=== PATIENT | female | born 1960 | race Caucasian/White ===

== ENCOUNTER 2016-07-14 18:36 | Emergency (ER) | payer OTHER ==
[~2016-07-14] VITALS: Ht 162.6 cm; Wt 68.3 kg
[~2016-07-14 18:36] MED LIST: ACET325T96 PO; ALPR-411 PO; ESCI1TAB10 PO; IMD/2 PO; NIVO4INJ IV; ONDA8TAB7 PO; OXYC-88 PO; OXYC20TA50 PO; PRENTAB26 PO; SYN125 PO; tumeric PO
[2016-07-14 19:01] VITALS: TEMP 36.8; Ht 162.6 cm; Wt 68.3 kg
[2016-07-14] MEDS ORDERED: SODIUM CHLORIDE 0.9% 500ML 500 ML IV STA (19:48)
[2016-07-14] MEDS ORDERED: SODIUM CHLORIDE 0.9% 1000ML 1,000 ML IV STA (19:48)
[2016-07-14] MEDS ORDERED: ONDANSETRON INJ 2 MG/ML 2 ML VIAL IV STA (19:48)
--- NOTE | 2016-07-14 19:48 | EMERGENCY ROOM VISIT NOTE ---
History Report prepared by Hernesto: Taylor Escalera Under the Supervision of: Dr. Netta Branch M.D. 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 She currently rates the pain as a 6/10 in severity. The patient states that she has a renal cell carcinoma. The patient's states the patient has been off treatment for about 3 months but has been dealing with cancer for the last 6 years. The patient states that she has had a pounding headache that goes across her forehead.The patient states that she also has been feeling nauseous and very fatigued. The patient's states that the he called the patient's oncologist and the recommend that due to the patient's new symptoms to come and have a CT of her head for new metastatic lesions in her brain. He states the patient has had tumors outside her head in the past but never in her brain. The patient states that she also has some pain in her ovaries and states that she has not had a menstrual period for a while now, and that she has had some spotting of blood in her urine. She states she has also noticed new lumps forming on both of her breasts. The patient states that she also has history of blood clots in her legs. 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 A total of 10 systems reviewed and were otherwise negative. 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 (11) Venous thrombosis Surgical Problems: (1) S/p ankle surgery (2) S/P craniotomy (3) S/P insertion of IVC (inferior vena caval) filter (4) S/p nephrectomy Family History FH: cancer FATHER (melanoma) MOTHER (leukemia) Social History Smoking Status: Never Smoker Alcohol Use: none Drug Use: none Marital Status: Housing Status: lives with family Current/Historical Medications Scheduled Alprazolam (Xanax), 0.5 MG PO QAM Escitalopram Oxalate (Lexapro), 20 MG PO DAILY Fentanyl (Fentanyl), Unknown Dose TOP Q3DAYS Levothyroxine Sodium (Levothyroxine Sodium), 1 TAB PO DAILYBB Multivit/Min/Iron/Fol Ac/Pren ( Vitamin), 1 TAB PO DAILY [tumeric], 1 CAP PO BID Scheduled PRN Acetaminophen Tab (Tylenol), 325 MG PO DIRECTED PRN for Moderate Pain Ondansetron Hcl (Zofran), 8 MG PO PRN PRN for Nausea or Vomiting Allergies Coded Allergies: POLLEN (Verified Allergy, Mild, sneezing, 07/14/16) Physical Exam Vital Signs Date Time Temp Pulse Resp B/P Pulse Ox O2 Delivery O2 Flow Rate FiO2 07/15/16 00:50 89 24 135/82 91 Room Air 07/14/16 22:33 90 18 120/77 92 Room Air 07/14/16 20:45 98 07/14/16 20:17 73 18 141/90 98 Room Air 07/14/16 19:01 36.8 90 18 122/85 93 Room Air Physical Exam Vital signs reviewed. General: Chronically ill appearing female. HEENT: No scleral icterus, PERRLA, neck supple. Mild periorbital swelling of the left eye. Postsurgical changes to the scalp. Cardiovascular: Regular rate and rhythm, no extra sounds. Pulmonary: Clear to auscultation bilaterally, normal work of breathing. Abdomen: Soft, nontender, nondistended, positive bowel sounds. Musculoskeletal: Well healing incision to the lumbar spine, no peripheral edema. Neurologic: Patient ambulates without difficulty, pleasantly confused but answer most questions appropriately, follows commands. Skin: Warm, dry, no rash Medical Decision & Procedures ER Provider Diagnostic Interpretation: CT results as stated below per my review and radiologist interpretation: CT SCAN OF THE BRAIN WITHOUT IV CONTRAST CLINICAL HISTORY: Change in mental status. Headache. History of metastatic renal cell carcinoma. COMPARISON STUDY: CT of the brain dated 01/05/2016. MRI of the brain dated 02/12/2016. TECHNIQUE: Unenhanced axial CT scan of the brain is performed from the vertex to the skull base. CT DOSE: 537.48 mGy.cm FINDINGS: Brain parenchyma: There are age-related involutional changes noting [id number] patchy subcortical and periventricular microangiopathic change. Left cerebellar encephalomalacia is unchanged and likely related to previous surgery. There is increasing edema in the right frontal lobe at the site of the patient's known metastatic lesion. The lesion is partially imaged on image #13 and measures at least 1.1 cm. There is a large and hyperdense appearing lesion seen within the body of the left lateral ventricle image #15. This measures 2.0 x 2.6 cm and was not identified on 02/12/2016. There is intraventricular hemorrhage identified within the right lateral ventricle. Trace blood is also seen within the left lateral ventricle. No parenchymal hematoma is seen. There is no midline shift or evidence of acute territorial ischemia by CT criteria. No extra-axial fluid collection is seen. Ventricles, sulci, cisterns: Prominent secondary to involutional change. See above. Intracranial vasculature: There is atherosclerotic calcification of the cavernous carotid and vertebral arteries. Calvarium: Again seen are postoperative changes from left occipital craniotomy. No destructive calvarial lesion is seen. Sinuses and mastoids: The visualized paranasal sinuses are clear. The mastoid air cells are well pneumatized. Orbits: The bony orbits are grossly intact. IMPRESSION: 1. Again seen is a metastatic focus in the right frontal lobe. There is increasing edema around this lesion as compared to previous. 2. There is a large mass lesion suspected within the body of the left lateral ventricle, new from prior studies. This likely represents an intraventricular metastasis. 3. There is intraventricular hemorrhage, with blood filling the right lateral ventricle. Trace blood is also seen within the left lateral ventricle. 4. There is no parenchymal hematoma identified. There is no midline shift or evidence of acute territorial ischemia by CT criteria. 5. Postoperative change and encephalomalacia in the left cerebellar hemisphere is similar to previous. Electronically signed by: Lopez Potts M.D. 07/14/2016 8:36 PM Dictated Date/Time: 07/14/2016 8:30 PM Laboratory Results 07/14/16 21:00 Red Blood Count 4.29, Mean Corpuscular Volume 85.8, Mean Corpuscular Hemoglobin 27.0, Mean Corpuscular Hemoglobin Concent 31.5, Mean Platelet Volume 9.0, Neutrophils (%) (Auto) 68.6, Lymphocytes (%) (Auto) 23.9, Monocytes (%) (Auto) 6.2, Eosinophils (%) (Auto) 0.9, Basophils (%) (Auto) 0.2, Neutrophils # (Auto) 3.89, Lymphocytes # (Auto) 1.35, Monocytes # (Auto) 0.35, Eosinophils # (Auto) 0.05, Basophils # (Auto) 0.01 07/14/16 21:00 Test 07/14/16 20:19 07/14/16 21:00 Urine Color YELLOW Urine Appearance CLEAR (CLEAR) Urine pH 6.0 (4.5-7.5) Urine Specific [place] 1.018 (1.000-1.030) Urine Protein 1+ (NEG) Urine Glucose (UA) NEG (NEG) Urine Ketones NEG (NEG) Urine Occult Blood 3+ (NEG) Urine Nitrite NEG (NEG) Urine Bilirubin NEG (NEG) Urine Urobilinogen NEG (NEG) Urine Leukocyte Esterase MODERATE (NEG) Urine WBC (Auto) >30 /hpf (0-5) Urine RBC (Auto) >30 /hpf (0-4) Urine Hyaline Casts (Auto) 1-5 /lpf (0-5) Urine Epithelial Cells (Auto) >30 /lpf (0-5) Urine Bacteria (Auto) NEG (NEG) Urine Renal Epithelial Cells 0-5 /lpf (0-5) White Blood Count 5.66 K/uL (4.8-10.8) Red Blood Count 4.29 M/uL (4.2-5.4) Hemoglobin 11.6 g/dL (12.0-16.0) Hematocrit 36.8 % (37-47) Mean Corpuscular Volume 85.8 fL (80-100) Mean Corpuscular Hemoglobin 27.0 pg (25-34) Mean Corpuscular Hemoglobin Concent 31.5 g/dl (32-36) Platelet Count 189 K/uL (130-400) Mean Platelet Volume 9.0 fL (7.4-10.4) Neutrophils (%) (Auto) 68.6 % Lymphocytes (%) (Auto) 23.9 % Monocytes (%) (Auto) 6.2 % Eosinophils (%) (Auto) 0.9 % Basophils (%) (Auto) 0.2 % Neutrophils # (Auto) 3.89 K/uL (1.4-6.5) Lymphocytes # (Auto) 1.35 K/uL (1.2-3.4) Monocytes # (Auto) 0.35 K/uL (0.11-0.59) Eosinophils # (Auto) 0.05 K/uL (0-0.5) Basophils # (Auto) 0.01 K/uL (0-0.2) RDW Standard Deviation 49.5 fL (36.4-46.3) RDW Coefficient of Variation 15.6 % (11.5-14.5) Immature Granulocyte % (Auto) 0.2 % Immature Granulocyte # (Auto) 0.01 K/uL (0.00-0.02) Anion Gap 11.0 mmol/L (3-11) Est Creatinine Clear Calc Drug Dose 25.7 ml/min Estimated GFR () 25.8 Estimated GFR (Non- 22.3 BUN/Creatinine Ratio 8.6 (10-20) Calcium Level 9.5 mg/dl (8.5-10.1) Total Bilirubin 0.3 mg/dl (0.2-1) Direct Bilirubin < 0.1 mg/dl (0-0.2) Aspartate Amino Transf (AST/SGOT) 15 U/L (15-37) Alanine Aminotransferase (ALT/SGPT) 11 U/L (12-78) Alkaline Phosphatase 74 U/L (45-117) Total Protein 7.0 gm/dl (6.4-8.2) Albumin 3.7 gm/dl (3.4-5.0) Laboratory results per my review. Medications Administered Medications (Trade) Dose Ordered Sig/Luis Route Start Time Stop Time Status Last Admin Dose Admin Sodium Chloride 500 ml @ 999 mls/hr Q31M STAT IV 07/14/16 19:48 07/14/16 20:18 DC 07/14/16 19:48 999 MLS/HR Sodium Chloride (Nss 1000ml) 1,000 ml @ 125 mls/hr Q8H STAT IV 07/14/16 19:48 07/15/16 03:47 07/14/16 19:48 125 MLS/HR Ondansetron HCl (Zofran Inj) 4 mg NOW STAT IV 07/14/16 19:48 07/14/16 19:50 DC 07/14/16 20:15 4 MG Hydromorphone HCl (Dilaudid Inj) 1 mg NOW STAT IV 07/14/16 21:04 07/14/16 21:05 DC 07/14/16 21:22 1 MG Hydromorphone HCl (Dilaudid Inj) 1 mg Q2HWA PRN IV 07/15/16 00:45 07/29/16 00:44 07/15/16 00:47 1 MG ED Course 1944: Past medical records reviewed. The patient was evaluated in room B3B. A complete history and physical examination was performed. 1947: Ordered Sodium Chloride 500 ml @ 999 mls/hr IV, Zofran Inj 4 mg IV, Sodium Chloride 1,000 ml @ 125 mls/hr IV 2103: Ordered Dilaudid Inj 1 mg IV. 2105: I reevaluated the patient and she was resting comfortably, I updated her on the results of her CT scan. 2124: I discussed the case with Dr. Ibarra [facility] Oncology. He agreed that the patient should be transferred to [facility] for further medical care and treatment. 2157: I reevaluated the patient who was resting comfortably. I updated them about the transfer to [facility]. 2200: I discussed the case with Dr. Yusuf [facility] Medicine. He agreed to accept the patient as a transfer to [facility] ED and states the patient can be transferred by ambulance. 3: Ordered Dilaudid Inj 1 mg IV. Medical Decision DDx: Intracranial hemorrhage, intracranial mass, migraine headache, tension headache , sinusitis, meningitis This patient was evaluated and appeared to be in no significant distress. IV access was obtained and laboratory work was drawn. Patient was hydrated with normal saline solution. Patient was given IV Dilaudid and Zofran for her discomfort. Laboratory work reveals an acute on chronic renal insufficiency with a creatinine of 2.4. CT scan of the head reveals an intraventricular lesion on the left with intraventricular bleeding in the right. The patient is followed in [place] by oncology. I spoke with the on-call oncologist, Dr. Ibarra who agrees with plan for transfer. They do have neurosurgical services. At this time the patient is in no distress, she periodically complaints of a headache that is alert and oriented. I did speak with Dr. Yusuf at [facility] from the hospitalist service who has accepted the patient in transfer. Neurosurgical consultation can be obtained. The patient and family are aware of the plan and agree. Consults Time Called: 2104 Consulting Physician: Dr. Ibarra [facility] Oncology Returned Call: 2124 I discussed the case with Dr. Ibarra [facility] Oncology. He agreed that the patient should be transferred to [facility] for further medical care and treatment. Additional Consults: Time Called: 2129 Consulted Physician: Dr. Yusuf [facility] Medicine Returned Call: 2200 Additional Comments: I discussed the case with Dr. Yusuf [facility] Medicine. He agreed to accept the patient as a transfer to [facility] ED and states the patient can be transferred by ambulance. Impression Primary Impression: Intracranial hemorrhage Additional Impression: Metastatic renal cell carcinoma Scribe Attestation The scribe's documentation has been prepared under my direction and personally reviewed by me in its entirety. I confirm that the note above accurately reflects all work, treatment, procedures, and medical decision making performed by me. Departure Information Dispostion Transfer Acute Care Facility ([facility]) Referrals Hayder Solorio M.D. (PCP) Patient Instructions My [facility] Problem Qualifiers
--- NOTE | 2016-07-14 20:37 | DIAGNOSTIC IMAGING REPORT ---
CT SCAN OF THE BRAIN WITHOUT IV CONTRAST CLINICAL HISTORY: Change in mental status. Headache. History of metastatic renal cell carcinoma. COMPARISON STUDY: CT of the brain dated 01/05/2016. MRI of the brain dated 02/12/2016. TECHNIQUE: Unenhanced axial CT scan of the brain is performed from the vertex to the skull base. CT DOSE: 537.48 mGy.cm FINDINGS: Brain parenchyma: There are age-related involutional changes noting [id number] patchy subcortical and periventricular microangiopathic change. Left cerebellar encephalomalacia is unchanged and likely related to previous surgery. There is increasing edema in the right frontal lobe at the site of the patient's known metastatic lesion. The lesion is partially imaged on image #13 and measures at least 1.1 cm. There is a large and hyperdense appearing lesion seen within the body of the left lateral ventricle image #15. This measures 2.0 x 2.6 cm and was not identified on 02/12/2016. There is intraventricular hemorrhage identified within the right lateral ventricle. Trace blood is also seen within the left lateral ventricle. No parenchymal hematoma is seen. There is no midline shift or evidence of acute territorial ischemia by CT criteria. No extra-axial fluid collection is seen. Ventricles, sulci, cisterns: Prominent secondary to involutional change. See above. Intracranial vasculature: There is atherosclerotic calcification of the cavernous carotid and vertebral arteries. Calvarium: Again seen are postoperative changes from left occipital craniotomy. No destructive calvarial lesion is seen. Sinuses and mastoids: The visualized paranasal sinuses are clear. The mastoid air cells are well pneumatized. Orbits: The bony orbits are grossly intact. IMPRESSION: 1. Again seen is a metastatic focus in the right frontal lobe. There is increasing edema around this lesion as compared to previous. 2. There is a large mass lesion suspected within the body of the left lateral ventricle, new from prior studies. This likely represents an intraventricular metastasis. 3. There is intraventricular hemorrhage, with blood filling the right lateral ventricle. Trace blood is also seen within the left lateral ventricle. 4. There is no parenchymal hematoma identified. There is no midline shift or evidence of acute territorial ischemia by CT criteria. 5. Postoperative change and encephalomalacia in the left cerebellar hemisphere is similar to previous. Electronically signed by: Lopez Potts M.D. 07/14/2016 8:36 PM Dictated Date/Time: 07/14/2016 8:30 PM
[2016-07-14 20:43] LABS: URINE APPEARANCE CLEAR (CLEAR); URINE BILIRUBIN NEG (NEG); URINE COLOR YELLOW; URINE EPITHELIAL CELL AUTO >30 /lpf (0-5); URINE NITRITE NEG (NEG); URINE SPECIFIC GRAVITY 1.018 (1.000-1.030); UROBILINOGEN NEG (NEG); ZZUR CULT IF INDIC CLEAN CATCH YES
[2016-07-14 20:47] LABS: MANUAL MICROSCOPIC REQUIRED? NO; REVIEW REQ? YES
[2016-07-14] MEDS ORDERED: HYDROmorphone INJ 1 MG/ML SYR IV STA (21:04)
[2016-07-14 21:09] LABS: BASO % 0.2 %; BASO ABS # 0.01 K/uL (0-0.2); COMPLETE YES; EOS % 0.9 %; HEMATOCRIT 36.8 % (37-47); IG% 0.2 %; LYMPH % 23.9 %; LYMPH ABS # 1.35 K/uL (1.2-3.4); MEAN CELL VOLUME 85.8 fL (80-100); MEAN CORPUSCULAR HGB CONC 31.5 g/dl (32-36); MONO % 6.2 %; NEUT % 68.6 %; PLATELET COUNT 189 K/uL (130-400); RED BLOOD COUNT 4.29 M/uL (4.2-5.4); WHITE BLOOD COUNT 5.66 K/uL (4.8-10.8)
[2016-07-14] MEDS ORDERED: ONDA8TAB12 PO (21:13)
[2016-07-14] MEDS ORDERED: LEVO125T5 PO (21:13)
[2016-07-14] MEDS ORDERED: FENT75DI2 TOP (21:13)
[2016-07-14 21:25] LABS: ALT/SGPT 11 U/L (12-78); BLOOD UREA NITROGEN 21 mg/dl (7-18); BUN/CREATININE RATIO 8.6 (10-20); CARBON DIOXIDE 26 mmol/L (21-32); CHLORIDE 106 mmol/L (98-107); GLUCOSE 112 mg/dl (70-99); POTASSIUM 3.8 mmol/L (3.5-5.1); SODIUM 143 mmol/L (136-145)
[2016-07-14 21:28] LABS: ALKALINE PHOSPHATASE 74 U/L (45-117); AST/SGOT 15 U/L (15-37)
[2016-07-14 22:22] LABS: CALCIUM 9.5 mg/dl (8.5-10.1)
[2016-07-15] MEDS: HYDROmorphone INJ 1 MG/ML SYR IV PRN ×2 (00:47→06:51)
[2016-07-15] MEDS ORDERED: ACETAMINOPHEN 500 MG TAB PO STA (08:27)
--- NOTE | 2016-07-15 10:16 | EMERGENCY ROOM VISIT NOTE ---
ED Visit Note The patient was received from the morning shift. The patient had arrangements to go to [facility] but the neurosurgical service and intensive care unit service did not feel they could handle the patient's situation. The patient has had neurosurgical evaluation as well as gamma knife surgery at [facility]. The patient agreed to go to [facility]. I spoke with from neurosurgery there. He accepted transfer the patient for further evaluation there. The patient is awake and alert. She received some Tylenol for a headache. She'll be transferred by helicopter per request of neurosurgery for further evaluation.
[2016-07-15] MEDS ORDERED: LORAZEPAM 2 MG/ML 1 ML VIAL IV STA (10:36)
[2016-07-15 11:14] VITALS: BP 119/79; PULSE 106; O2SAT 95
[2016-09-23] MEDS ORDERED: ONDA8TAB12 PO (09:46)
[2016-09-23] MEDS ORDERED: ALPR-411 PO (09:46)
[2016-09-23] MEDS ORDERED: MRPSR15 PO (09:46)
[2016-09-23] MEDS ORDERED: MORPHINE PO (09:50)
[2016-09-23] MEDS ORDERED: CIPR250T5 PO (09:50)
== END 2016-07-15 11:15 | disposition short-term general hospital (02) ==
LOC: C.EDB 18:37
DX: I62.9 Nontraumatic intracranial hemorrhage, unspecified (principal); C64.9 Malignant neoplasm of unspecified kidney, except renal pelvis; E03.9 Hypothyroidism, unspecified; N18.9 Chronic kidney disease, unspecified; G93.9 Disorder of brain, unspecified; Z86.718 Personal history of other venous thrombosis and embolism; Z85.828 Personal history of other malignant neoplasm of skin; Z90.5 Acquired absence of kidney; Z98.890 Other specified postprocedural states; Z80.6 Family history of leukemia; Z80.8 Family history of malignant neoplasm of other organs or systems; Z79.899 Other long term (current) drug therapy

== ENCOUNTER 2016-08-27 10:35 | Inpatient (IN) | payer OTHER ==
[~2016-08-27] VITALS: Ht 167.6 cm; Wt 68.7 kg
[~2016-08-27 10:35] MED LIST changes: +FENT75DI2 TOP; -IMD/2 PO; +LEVO125T5 PO; -NIVO4INJ IV; +ONDA8TAB12 PO; -ONDA8TAB7 PO; -OXYC-88 PO; -OXYC20TA50 PO; -SYN125 PO
[2016-08-27] MEDS ORDERED: CEFTRIAXONE SOD INJ 1 GM ADDVIAL IV STA (10:59)
[2016-08-27] MEDS ORDERED: SODIUM CHLORIDE 0.9% 1000ML 1,000 ML IV STA (10:59)
[2016-08-27] MEDS ORDERED: ONDANSETRON INJ 2 MG/ML 2 ML VIAL IV STA (10:59)
[2016-08-27 11:27] LABS: URINE APPEARANCE CLOUDY (CLEAR); URINE BILIRUBIN NEG (NEG); URINE NITRITE NEG (NEG); URINE PH 5.5 (4.5-7.5); UROBILINOGEN NEG (NEG); ZZUR CULT IF INDIC CLEAN CATCH YES
[2016-08-27 11:35] LABS: MANUAL MICROSCOPIC REQUIRED? NO; REVIEW REQ? NO; URINE COLOR DK YELLOW
[2016-08-27 11:48] LABS: HEMATOCRIT 36.6 % (37-47); MEAN CELL VOLUME 84.1 fL (80-100); MEAN CORPUSCULAR HEMOGLOBIN 26.7 pg (25-34); MEAN CORPUSCULAR HGB CONC 31.7 g/dl (32-36); MEAN PLATELET VOLUME 9.4 fL (7.4-10.4); PLATELET COUNT 196 K/uL (130-400); RED BLOOD COUNT 4.35 M/uL (4.2-5.4); WHITE BLOOD COUNT 7.84 K/uL (4.8-10.8)
[2016-08-27 12:12] LABS: BUN/CREATININE RATIO 13.6 (10-20); CALCIUM 12.3 mg/dl (8.5-10.1); CREATININE 2.9 mg/dl (0.60-1.20); POTASSIUM 4.1 mmol/L (3.5-5.1)
[2016-08-27 12:21] LABS: BASO % 0.1 %; BASO ABS # 0.01 K/uL (0-0.2); COMPLETE YES; EOS % 0.8 %; IG% 0.1 %; LYMPH % 13.4 %; LYMPH ABS # 1.05 K/uL (1.2-3.4); MONO % 4.1 %; NEUT % 81.5 %
[2016-08-27] MEDS ORDERED: SULF800T23 PO (12:27)
[2016-08-27] MEDS ORDERED: SYN100 PO (12:27)
[2016-08-27] MEDS ORDERED: PROB1TAB16 PO (12:27)
--- NOTE | 2016-08-27 14:32 | EMERGENCY ROOM VISIT NOTE ---
History Report prepared by Hernesto: Mónica Treviño Under the Supervision of: Dr. Harrison Eubanks D.O. First contact with patient: 10:58 Chief Complaint: URINARY SYMPTOMS Stated Complaint: URINARY FREQ. W/PAIN AND BLOOD Nursing Triage Summary: pt reports NV today , treated for UTI in urgent care 1 day ago has been treated X 3 for uti in last month History of Present Illness The patient is a 56 year old female who presents to the Emergency Room with complaints of persistent urinary symptoms that started 1 month ago. The patient is experiencing burning with urination and increased urinary frequency. The patient was seen at an urgent care in [place] last night because her PCP is going out of town. She was treated for a UTI. She had a urine culture done there last night. The patient's states that the patient had 3 UTIs in the last month. She started to experience nausea and vomiting earlier today. The patient's adds that the patient had clots in her urine last weekend , some of which were the size of a grape. The patient states that she has not had a menstrual period for 4-5 years. The patient's states that she had an ultrasound of her kidney done last week which revealed that the mass that was there previously is gone but now there are 2 lesions on her kidney. The patient was diagnosed with metastatic renal cell carcinoma 6 years ago and had one of her kidneys removed secondary to it. The cancer has metastasized to her brain, head, spine, and lungs. The patient's states that she also has tumors on her breasts. The patient is also experiencing abdominal pain, which her states is a new complaint for her. The patient adds that she is experiencing pain in her right leg, which she thinks may be secondary to a blood clot. The patient's states that the patient is experiencing increased confusion and memory loss secondary to the tumors on her brain. The patient received gamma knife radiation for 4 tumors on her brain in [place] about 1 month ago. The patient has a follow-up appointment in [place] tomorrow. The patient's states that the patient still has a small tumor on her brain that was too small to remove with the others 1 month ago. The patient is not currently on chemotherapy and has an appointment next week for clinical trials in [place]. The patient is not on any blood thinners because it would cause too many complications with her cancer. Source of History: patient Onset: 1 month ago Position: other (urinary tract) Quality: other (urinary symptoms - burning with urination, increased urinary frequency, hematuria with clots) Timing: other (persistent) Modifying Factors (Relieving): other (None) Associated Symptoms: + nausea, + vomiting, + abdominal pain Note: right leg pain Review of Systems See HPI for pertinent positives & negatives. A total of 10 systems reviewed and were otherwise negative. 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 (11) Venous thrombosis Surgical Problems: (1) S/p ankle surgery (2) S/P craniotomy (3) S/P insertion of IVC (inferior vena caval) filter (4) S/p nephrectomy Family History FH: cancer FATHER (melanoma) MOTHER (leukemia) Social History Smoking Status: Former Smoker Alcohol Use: none Drug Use: none Marital Status: Housing Status: lives with family Current/Historical Medications Scheduled Alprazolam (Xanax), 0.5 MG PO QAM Escitalopram Oxalate (Lexapro), 20 MG PO DAILY Levothyroxine Sodium (Synthroid), 1 TAB PO DAILY Probiotic Product (Probiotic), 1 TAB PO DAILY Sulfamethoxazole-Trimethoprim (Bactrim Ds 800MG/160MG), 1 TAB PO BID [tumeric], 1 CAP PO BID Scheduled PRN Acetaminophen Tab (Tylenol), 325 MG PO DIRECTED PRN for Moderate Pain Ondansetron Hcl (Zofran), 8 MG PO PRN PRN for Nausea or Vomiting Allergies Coded Allergies: POLLEN (Verified Allergy, Mild, sneezing, 08/27/16) Physical Exam Vital Signs Date Time Temp Pulse Resp B/P (MAP) Pulse Ox O2 Delivery O2 Flow Rate FiO2 08/27/16 13:42 89 16 112/78 93 Room Air 08/27/16 12:25 93 16 115/72 92 Room Air 08/27/16 10:56 36.6 104 18 99/62 97 Room Air Physical Exam CONSTITUTIONAL/VITAL SIGNS: Reviewed / noted above. GENERAL: Non-toxic in appearance. INTEGUMENTARY: Warm, dry, and [place]. HEAD: Normocephalic, some chronic findings related to radiation therapy EYES: without scleral icterus or trauma. ENT/OROPHARYNX: clear and moist. LYMPHADENOPATHY/NECK: Is supple without lymphadenopathy or meningismus. RESPIRATORY: Lungs clear and equal. CARDIOVASCULAR: Regular rate and rhythm. GI/ABDOMEN: Soft. Mildly tender over suprapubic area. No organomegaly or pulsatile mass. No rebound or guarding. Normal bowel sounds. EXTREMITIES: Warm and well perfused. BACK: No CVA tenderness. NEUROLOGICAL: Intact without focal deficits. PSYCHIATRIC: normal affect. MUSCULOSKELETAL: Normally developed with good muscle tone. Medical Decision & Procedures Laboratory Results 08/27/16 11:37 Red Blood Count 4.35, Mean Corpuscular Volume 84.1, Mean Corpuscular Hemoglobin 26.7, Mean Corpuscular Hemoglobin Concent 31.7, Mean Platelet Volume 9.4, Neutrophils (%) (Auto) 81.5, Lymphocytes (%) (Auto) 13.4, Monocytes (%) (Auto) 4.1, Eosinophils (%) (Auto) 0.8, Basophils (%) (Auto) 0.1, Neutrophils # (Auto) 6.39, Lymphocytes # (Auto) 1.05, Monocytes # (Auto) 0.32, Eosinophils # (Auto) 0.06, Basophils # (Auto) 0.01 08/27/16 11:37 Test 08/27/16 11:08 08/27/16 11:37 Urine Color DK YELLOW Urine Appearance CLOUDY (CLEAR) Urine pH 5.5 (4.5-7.5) Urine Specific [place] 1.020 (1.000-1.030) Urine Protein 2+ (NEG) Urine Glucose (UA) NEG (NEG) Urine Ketones NEG (NEG) Urine Occult Blood 3+ (NEG) Urine Nitrite NEG (NEG) Urine Bilirubin NEG (NEG) Urine Urobilinogen NEG (NEG) Urine Leukocyte Esterase MODERATE (NEG) Urine WBC (Auto) >30 /hpf (0-5) Urine RBC (Auto) >30 /hpf (0-4) Urine Hyaline Casts (Auto) 1-5 /lpf (0-5) Urine Epithelial Cells (Auto) 5-10 /lpf (0-5) Urine Bacteria (Auto) NEG (NEG) White Blood Count 7.84 K/uL (4.8-10.8) Red Blood Count 4.35 M/uL (4.2-5.4) Hemoglobin 11.6 g/dL (12.0-16.0) Hematocrit 36.6 % (37-47) Mean Corpuscular Volume 84.1 fL (80-100) Mean Corpuscular Hemoglobin 26.7 pg (25-34) Mean Corpuscular Hemoglobin Concent 31.7 g/dl (32-36) Platelet Count 196 K/uL (130-400) Mean Platelet Volume 9.4 fL (7.4-10.4) Neutrophils (%) (Auto) 81.5 % Lymphocytes (%) (Auto) 13.4 % Monocytes (%) (Auto) 4.1 % Eosinophils (%) (Auto) 0.8 % Basophils (%) (Auto) 0.1 % Neutrophils # (Auto) 6.39 K/uL (1.4-6.5) Lymphocytes # (Auto) 1.05 K/uL (1.2-3.4) Monocytes # (Auto) 0.32 K/uL (0.11-0.59) Eosinophils # (Auto) 0.06 K/uL (0-0.5) Basophils # (Auto) 0.01 K/uL (0-0.2) RDW Standard Deviation 48.0 fL (36.4-46.3) RDW Coefficient of Variation 15.5 % (11.5-14.5) Immature Granulocyte % (Auto) 0.1 % Immature Granulocyte # (Auto) 0.01 K/uL (0.00-0.02) Anion Gap 7.0 mmol/L (3-11) Est Creatinine Clear Calc Drug Dose 20.8 ml/min Estimated GFR () 20.4 Estimated GFR (Non- 17.6 BUN/Creatinine Ratio 13.6 (10-20) Calcium Level 12.3 mg/dl (8.5-10.1) Laboratory results as stated above per my review. Medications Administered Medications (Trade) Dose Ordered Sig/Luis Route Start Time Stop Time Status Last Admin Dose Admin Sodium Chloride 1,000 ml @ 999 mls/hr Q1H1M STAT IV 08/27/16 10:59 08/27/16 11:59 DC 08/27/16 11:31 999 MLS/HR Ondansetron HCl (Zofran Inj) 4 mg NOW STAT IV 08/27/16 10:59 08/27/16 11:02 DC 08/27/16 11:30 4 MG Ceftriaxone Sodium (Rocephin Inj) 1 gm NOW STAT IV 08/27/16 10:59 08/27/16 11:02 DC 08/27/16 11:31 1 GM ED Course 1059: Ordered Rocephin Inj 1 gm IV, Zofran Inj 4 mg IV, Sodium Chloride 1000 ml @ 999 mls/hr IV 1104: Previous medical records were reviewed. The patient was evaluated in room C6. A complete history and physical examination was performed. 1402: On reevaluation, the patient is resting comfortably. I discussed the results and findings with her. She verbalized agreement of the treatment plan. The patient will be evaluated for further management and care. 1456: Discussed the patient's case with Dr. Saranya BORREGO. The patient will be evaluated for further treatment and disposition. Medical Decision Differential considered: pancreatitis, hepatitis, or acute cholecystitis, AAA, UTI, pyelonephritis, kidney stones, appendicitis, diverticulitis, shingles, bowel obstruction mesenteric ischemia, intussusception, hernia, ovarian torsion , ruptured ovarian cyst. Medication Reconciliation: I attest that I have personally reviewed the patient' s current medication list. Blood pressure Screening: Patient was found to have normal blood pressure on screening and does not require follow-up. This is a 56-year-old female who presents to the ED with a chief complaint of nausea and vomiting today. The patient also has been experiencing some urinary tract infection symptoms. She was started on Bactrim yesterday. She has a history of metastatic renal carcinoma. The patient reports frequency and burning with urination over the last week. She has a history of Gamma knife surgery to her brain. The patient's vital signs are stable. Her physical exam reveals some chronic findings. She had some suprapubic tenderness. Her CBC is unremarkable. Chemistry panel revealed an elevated BUN of 30 and a creatinine of 2.9. This is slightly above her normal or baseline. Calcium level was 12.3. The patient was treated with IV fluids. She was given IV Zofran for nausea and IV Rocephin. She'll be seen by the hospital service for her hypercalcemia, dehydration and worsening kidney function. Consults Time Called: [id number] Consulting Physician: Dr. Saranya BORREGO Returned Call: [phone] Discussed the patient's case with Dr. Saranya BORREGO. The patient will be evaluated for further treatment and disposition. Impression Primary Impression: Hypercalcemia Additional Impressions: Dehydration Acute on chronic renal insufficiency Vomiting Scribe Attestation The scribe's documentation has been prepared under my direction and personally reviewed by me in its entirety. I confirm that the note above accurately reflects all work, treatment, procedures, and medical decision making performed by me. Departure Information Dispostion Being Evaluated By Hospitalist Referrals Hayder Solorio M.D. (PCP) Patient Instructions My [facility] Problem Qualifiers
[2016-08-27] MEDS ORDERED: POLYETHYLENE (MIRALAX) 17 GM PACK PO PRN (16:15)
[2016-08-27] MEDS ORDERED: ZOLPIDEM TARTRATE 5 MG TAB PO PRN (16:15)
[2016-08-27] MEDS ORDERED: ONDANSETRON INJ 2 MG/ML 2 ML VIAL IV PRN (16:15)
[2016-08-27] MEDS ORDERED: MAGNESIUM HYDROXIDE SUSP 30 ML UDC PO PRN (16:15)
[2016-08-27] MEDS ORDERED: ALUMINUM/MAGNESIUM/SIMETH (MAALOX MAX) 30 ML UDC PO PRN (16:15)
[2016-08-27 16:46] LABS: PARTIAL THROMBOPLASTIN RATIO 0.9; PROTHROMBIN TIME (PATIENT) 10.5 SECONDS (9.0-12.0)
[2016-08-27 17:30] VITALS: O2SAT 92
[2016-08-27] MEDS: SODIUM CHLORIDE 0.9% 1000ML 1,000 ML IV SCH (17:50)
[2016-08-27 18:06] VITALS: BP 130/75; PULSE 98; TEMP 37.5; O2SAT 92; Ht 167.6 cm; Wt 68.7 kg
--- NOTE | 2016-08-27 18:30 | History and Physical ---
History & Physical Date & Time of Service: Aug 27, 2016 at 17:42 Chief Complaint: Urinary Freq. W/Pain And Blood Primary Care Physician: Hayder Solorio M.D. History of Present Illness Source: patient 56 y/o F with metastatic renal CA, CKD 4, ICH, DVT. Pt was treated for a UTI over the past week with Bactrim. She has had persistent dysuria and mild hematuria for over one month and this does not seem to have improved. She developed some abdominal pain one day prior and then developed nausea and vomiting today. The pts reports that she has been intermittently confused presumably due to her brain metastasis and previous gamma knife surgery. Initial labs in the ER reveal hypercalcemia and acute on chronic renal failure. She denies fevers, rigors or flank pain. Past Medical/Surgical History Medical Problems: (1) Brain metastasis Status: Chronic (2) CKD (chronic kidney disease) Status: Chronic (3) Diarrhea Status: Resolved (4) History of DVT (deep vein thrombosis) Status: Chronic (5) Hypothyroidism Status: Chronic (6) Lung metastasis Status: Chronic (7) Metastatic renal cell carcinoma Permanent Comment: Status post right radical nephrectomy 07/01/2010 Stage pT2b [id number] Systemic chemotherapy Afinitor and then a clinical trial [facility] Axitinib for one year Pazopabib for one and a half years Brain metastasis found 05/18/2014. 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 9) GI bleed following Heparin use Surgical Problems: (1) S/p ankle surgery Status: Chronic (2) S/P craniotomy Status: Chronic (3) S/P insertion of IVC (inferior vena caval) filter Status: Chronic (4) S/p nephrectomy Status: Chronic Family History FH: cancer FATHER (melanoma) MOTHER (leukemia) Social History Smoking Status: Former Smoker Drug Use: none Marital Status: Immunizations History of Influenza Vaccine: Yes History of Tetanus Vaccine?: Yes History of Pneumococcal: Yes History of Hepatitis B Vaccine: No Multi-Drug Resistant Organisms History of MDRO: No Allergies Coded Allergies: POLLEN (Verified Allergy, Mild, sneezing, 08/27/16) Home Medications Scheduled Alprazolam (Xanax), 0.5 MG PO QAM Escitalopram Oxalate (Lexapro), 20 MG PO DAILY Levothyroxine Sodium (Synthroid), 1 TAB PO DAILY Probiotic Product (Probiotic), 1 TAB PO DAILY Sulfamethoxazole-Trimethoprim (Bactrim Ds 800MG/160MG), 1 TAB PO BID [tumeric], 1 CAP PO BID Scheduled PRN Acetaminophen Tab (Tylenol), 325 MG PO DIRECTED PRN for Moderate Pain Ondansetron Hcl (Zofran), 8 MG PO PRN PRN for Nausea or Vomiting Review of Systems Constitutional: No fever, No chills, No sweats Eyes: No worsening of vision, No eye pain ENT: No hearing loss, No nasal symptoms Respiratory: No cough, No sputum, No wheezing Cardiovascular: No chest pain, No orthopnea, No PND Abdomen: + pain, + nausea, + vomiting Musculoskeletal: No joint pain, No muscle pain Genitourinary - Female: + dysuria, + urinary frequency, + hematuria Neurologic: + weakness, No memory loss, No paralysis Psychiatric: No depression symptoms Endocrine: + fatigue Integumentary: No rash Physical Exam Vital Signs Date Time Temp Pulse Resp B/P (MAP) Pulse Ox O2 Delivery O2 Flow Rate FiO2 08/27/16 17:28 102 18 109/75 93 08/27/16 15:35 95 16 116/75 92 Room Air 08/27/16 13:42 89 16 112/78 93 Room Air 08/27/16 12:25 93 16 115/72 92 Room Air 08/27/16 10:56 36.6 104 18 99/62 97 Room Air General Appearance: WD/WN, no apparent distress Head: normocephalic, atraumatic Eyes: normal inspection ENT: normal ENT inspection, pharynx normal Neck: supple, no JVD Respiratory/Chest: chest non-tender, lungs clear, normal breath sounds, no respiratory distress, no accessory muscle use Cardiovascular: regular rate, rhythm, normal peripheral pulses Abdomen/GI: normal bowel sounds, non tender, soft Back: normal inspection, normal range of motion Extremities/Musculoskelatal: normal inspection, normal range of motion Neurologic/Psych: 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, no motor/sensory deficits, alert, normal mood/affect, + pertinent finding (AAO x 2 - long-term memory impaired) Skin: normal color, warm/dry, no rash Diagnostics Laboratory Results Results Past 24 Hours Test 08/27/16 11:08 08/27/16 11:37 Range/Units Urine Color DK YELLOW Urine Appearance CLOUDY CLEAR Urine pH 5.5 4.5-7.5 Urine Specific [place] 1.020 1.000-1.030 Urine Protein 2+ NEG Urine Glucose (UA) NEG NEG Urine Ketones NEG NEG Urine Occult Blood 3+ NEG Urine Nitrite NEG NEG Urine Bilirubin NEG NEG Urine Urobilinogen NEG NEG Urine Leukocyte Esterase MODERATE NEG Urine WBC (Auto) >30 0-5 /hpf Urine RBC (Auto) >30 0-4 /hpf Urine Hyaline Casts (Auto) 1-5 0-5 /lpf Urine Epithelial Cells (Auto) 5-10 0-5 /lpf Urine Bacteria (Auto) NEG NEG White Blood Count 7.84 4.8-10.8 K/uL Red Blood Count 4.35 4.2-5.4 M/uL Hemoglobin 11.6 12.0-16.0 g/dL Hematocrit 36.6 37-47 % Mean Corpuscular Volume 84.1 80-100 fL Mean Corpuscular Hemoglobin 26.7 25-34 pg Mean Corpuscular Hemoglobin Concent 31.7 32-36 g/dl Platelet Count 196 130-400 K/uL Mean Platelet Volume 9.4 7.4-10.4 fL Neutrophils (%) (Auto) 81.5 % Lymphocytes (%) (Auto) 13.4 % Monocytes (%) (Auto) 4.1 % Eosinophils (%) (Auto) 0.8 % Basophils (%) (Auto) 0.1 % Neutrophils # (Auto) 6.39 1.4-6.5 K/uL Lymphocytes # (Auto) 1.05 1.2-3.4 K/uL Monocytes # (Auto) 0.32 0.11-0.59 K/uL Eosinophils # (Auto) 0.06 0-0.5 K/uL Basophils # (Auto) 0.01 0-0.2 K/uL RDW Standard Deviation 48.0 36.4-46.3 fL RDW Coefficient of Variation 15.5 11.5-14.5 % Immature Granulocyte % (Auto) 0.1 % Immature Granulocyte # (Auto) 0.01 0.00-0.02 K/uL Prothrombin Time 10.5 9.0-12.0 SECONDS Prothromb Time International Ratio 1.0 0.9-1.1 Activated Partial Thromboplast Time 23.8 21.0-31.0 SECONDS Partial Thromboplastin Ratio 0.9 Sodium Level 141 136-145 mmol/L Potassium Level 4.1 3.5-5.1 mmol/L Chloride Level 107 98-107 mmol/L Carbon Dioxide Level 27 21-32 mmol/L Anion Gap 7.0 3-11 mmol/L Blood Urea Nitrogen 39 7-18 mg/dl Creatinine 2.90 0.60-1.20 mg/dl Est Creatinine Clear Calc Drug Dose 20.8 ml/min Estimated GFR () 20.4 Estimated GFR (Non- 17.6 BUN/Creatinine Ratio 13.6 10-20 Random Glucose 132 70-99 mg/dl Calcium Level 12.3 8.5-10.1 mg/dl Microbiology Results 08/27/16 Urine Culture, Received Pending Impression Assessment and Plan 56 y/o F with metastatic renal CA, CKD 4, ICH, DVT. Pt was treated for a UTI over the past week with Bactrim. She has had persistent dysuria and mild hematuria for over one month and this does not seem to have improved. She developed some abdominal pain one day prior and then developed nausea and vomiting today. The pts reports that she has been intermittently confused presumably due to her brain metastasis and previous gamma knife surgery. Initial labs in the ER reveal hypercalcemia and acute on chronic renal failure. She denies fevers, rigors or flank pain. 1) Hypercalcemia - moderate - likely multifactorial owing to her CA and dehydration - may be the cause of her abdominal pain and contributing to her confusion - would avoid bisphosphonates if possible due to her CKD. We will provide aggressive hydration and trend her electrolytes. We will give one dose of steroids as she is symptomatic. Calcitonin can be used safely if needed. 2) CKD - acute on chronic impairment - may be gradual worsening or acute due to Bactrim or dehydration. We will aggressively hydrate, tend her BMP. Consider a nephrology consult if no immediate improvement as she had a R nephrectomy in 2010. 3) Metastatic renal CA - she is due for an appt to discuss experimental treatment this coming week at [place] 4) Hypothyroidism - cont Synthroid 5) UTI - repeat culture - D/C Bactrim - start Ceftriaxone 6) Do not provide chemical prophylaxis - pt has had both an ICH and gastric hemorrhage due to Heparin use in past - wears SEFERINO stocking daily and has an IVC filter. Full code Total time for this admit including review of labs, meds, extensive records - discussion with pt/spouse and ER attending - 39 min Resuscitation Status FULL RESUSCITATION VTE Prophylaxis VTE Risk Assessment Done? Y/N: Yes Risk Level: High Given or contraindicated: T.E.D. Stockings, SCD's
[2016-08-27] MEDS ORDERED: HYDROCORTISONE IV 100 MG in SYRINGE 0 ML IV SCH (18:45)
[2016-08-27 20:00] VITALS: O2SAT 92
[2016-08-27 20:14] VITALS: BP 111/71; PULSE 94; TEMP 37; O2SAT 90
[2016-08-27 21:18] LABS: BUN/CREATININE RATIO 12.6 (10-20); CALCIUM 10.8 mg/dl (8.5-10.1); CREATININE 2.8 mg/dl (0.60-1.20); POTASSIUM 4.9 mmol/L (3.5-5.1)
[2016-08-27] MEDS: ACETAMINOPHEN 325 MG TAB PO PRN (21:35)
[2016-08-27] MEDS ORDERED: HEPARIN SOD 5000 UNIT/0.5 ML CARP SQ SCH (22:00)
[2016-08-27 23:20] VITALS: BP 116/76; PULSE 89; TEMP 36.9; O2SAT 92
[2016-08-27 23:59] VITALS: O2SAT 92
[2016-08-28 00:50] LABS: CREATININE 2.8 mg/dl (0.60-1.20)
[2016-08-28 00:51] LABS: BUN/CREATININE RATIO 12.5 (10-20); CALCIUM 10.6 mg/dl (8.5-10.1); POTASSIUM 4.7 mmol/L (3.5-5.1)
[2016-08-28] MEDS: SODIUM CHLORIDE 0.9% 1000ML 1,000 ML IV SCH ×3 (01:29→20:21)
[2016-08-28 03:43] VITALS: BP 107/69; PULSE 86; TEMP 36.5; O2SAT 93
[2016-08-28 04:00] VITALS: O2SAT 92
[2016-08-28 05:04] LABS: BUN/CREATININE RATIO 12.7 (10-20); CALCIUM 10.6 mg/dl (8.5-10.1); CREATININE 2.8 mg/dl (0.60-1.20); POTASSIUM 4.6 mmol/L (3.5-5.1)
[2016-08-28] MEDS: LEVOTHYROXINE 100 MCG TAB PO SCH (05:35)
[2016-08-28] MEDS: ACETAMINOPHEN 325 MG TAB PO PRN ×3 (05:36→20:21)
[2016-08-28 07:10] VITALS: BP 104/63; PULSE 86; TEMP 36.6; O2SAT 95
--- NOTE | 2016-08-28 08:06 | Family Medicine Progress Note ---
Progress Note Date of Service Aug 28, 2016. Subjective Pt evaluation today including: conversation w/ patient, physical exam, chart review, lab review Seen and examined at bedside. Still having pink urine with clots. No AMS on my exam but the pt was slightly confused after her afternoon nap. The [employer] student reported an episode of confusion (calling her by a different name on a different hospital service). Confusion has resolved but confusion has been episodic in the past. 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 No chest pain, no SOB. Objective Physical Exam General Appearance: WD/WN, no apparent distress Respiratory/Chest: chest non-tender, lungs clear, normal breath sounds, no respiratory distress, no accessory muscle use Cardiovascular: regular rate, rhythm, no edema, no gallop, no JVD, no murmur Abdomen: normal bowel sounds, non tender, soft, no organomegaly, no pulsatile mass Extremities: normal range of motion, non-tender, + pertinent finding (no cva tenderness bilaterally) Neurologic/Psychiatric: alert, normal mood/affect, oriented x 3 Skin: no rash Assessment and Plan 56F with metastatic renal CA (brain, abdomen), CKD 4, ICH, DVT. Pt was treated for a UTI over the past week with Bactrim. She has had persistent dysuria and mild hematuria for over one month and this does not seem to have improved as well as episodic confusion x 6 months. Prior to admission she developed some abdominal pain one day prior and then developed nausea and vomiting. Urine culture at [facility] was contaminated. Pt is voiding brown colored urine. On Ceftriaxone. May all be related to renal Ca. Will trend BMPs daily. Possible mental status is at baseline. CKD (creatinine is 2.8) - acute on chronic impairment - may be gradual worsening or acute due to Bactrim or dehydration. We will aggressively hydrate , tend her BMP. Consider a nephrology consult if no immediate improvement as she had a R nephrectomy in 2010. Hypercalcemia - moderate - likely multifactorial owing to her CA and dehydration - may be the cause of her abdominal pain and contributing to her confusion - would avoid bisphosphonates if possible due to her CKD. We will provide aggressive hydration and trend her electrolytes. Chronic episode AMS- for the past 6 months pt has been intermittently confused, this is likely relate to the brain mets than an acute infection. Metastatic renal CA - she is due for an appt to discuss experimental treatment this coming week at [place] Hypothyroidism - cont Synthroid UTI - repeat culture - c/w Ceftriaxone Day #2 - Urine culture from [facility] ([facility]) was contaminated. DVT proph - Do not provide chemical prophylaxis - pt has had both an ICH and gastric hemorrhage due to Heparin use in past - wears SEFERINO stocking daily and has an IVC filter. Resident Physician Supervision Note: I interviewed and examined the patient. Discussed with Dr. Gould and agree with findings and plan as documented in the note. Any exceptions or clarifications are listed here: None Documented By: Romeo Man feeling better notes that she's bad with short term memory, seems to have less hematuria does note that she doesn't drink enough and that their house has window unit AC so not all rooms cold. ROS otherwise negative except for as above vitals noted nad breathing unlabored no pallor or icterus AMS - likely multifactorial and also with baseline of some degree of mental status change due to mets/bleed/etc ARF - unclear if this is becoming a new baseline - Cr previously seemed to be around 1.5 range but then 5/ was 2.4 now in the high 2.x range, vs if this is all acute (due to dehydration vs bactrim) -- if chronic worsneing, biggest concern would be due to malignancy (either infiltration into remaining kidney or obstructive due to mets). initially treated as dehydration as clinically this fits the best - but creatinine barely has improved over ~24hrs - > renal US to eval for obstruction and/or appearance of mets. hypercalcemia - like above, could either be main ddx of dehydration/ concentration, or malignancy. is newly up - wasn't up 5/. after hydration, while came down, is still not normal. check vitamin D and PTH to round out the picture, but suspect related to malignancy at least in large part. ?UTI - hematuria ??due to malignancy. [facility] culture multiple gracia thought to be contaminant all gram positives, not apearing septic or infected here, culture still pending. rocephin for now, follow. DVT proph - as above. Resident Involvement: Resident Care Provided Care Provided: Adult Hospital Medicine
[2016-08-28] MEDS: ALPRAZOLAM 0.5 MG TAB PO SCH (08:15)
[2016-08-28] MEDS: ESCITALOPRAM OXALATE 20 MG TAB PO SCH (08:15)
[2016-08-28 08:57] LABS: HEMATOCRIT 33.6 % (37-47); MEAN CELL VOLUME 85.5 fL (80-100); MEAN CORPUSCULAR HGB CONC 30.4 g/dl (32-36); PLATELET COUNT 204 K/uL (130-400); RED BLOOD COUNT 3.93 M/uL (4.2-5.4)
[2016-08-28] MEDS: CEFTRIAXONE SOD INJ 1 GM in DEXTROSE 5% ADD-VANTAGE 50ML 50 ML IV SCH (11:06)
[2016-08-28 11:16] VITALS: BP 91/61; PULSE 88; TEMP 36.6; O2SAT 92
--- NOTE | 2016-08-28 13:26 | Medical Student: [facility] ---
Med Student Progress Note Date of Service Aug 28, 2016. 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 7 day history of hematuria, increased urinary frequency, dysuria, and reported confusion. Began Bactrim treatment by PCP with no improvement. Patient also reports urinating clots of varying size intermittently with the largest being equated to "the size of a gum ball" which was mildly painful as well as an intermittent "crampy" lower abdominal pain. Today, patient reports confusion has resolved. Denies any atypical pain, SOB, tachypnea, tachycardia, plapitations, fevers, chills, night sweats, edema, nausea, vomiting, constipation, dysuria, or increased urinary frequency. She does note that this am there were clots with urination which she mentioned to nursing staff, no pain with passage noted. Review of Systems Constitutional: No fever, No chills, No sweats, No weakness, No problem reported Respiratory: + dyspnea on exertion (chronic - has not changed with illness), No cough, No sputum, No wheezing, No shortness of breath, No dyspnea at rest, No hemoptysis, No problem reported Cardiac: No chest pain, No orthopnea, No edema, No palpitations Breast: + breast lump (secondary to mets) Abdomen: + pain (Lower abd - crampy), No nausea, No vomiting, No diarrhea, No constipation, No GI bleeding Female : + dysuria, + urinary frequency, + hematuria (intermittent clots of varying sizes) Neurologic: + see HPI All Other Systems: Reviewed and Negative Objective Vital Signs Date Time Temp Pulse Resp B/P (MAP) Pulse Ox O2 Delivery O2 Flow Rate FiO2 08/28/16 12:00 Room Air 08/28/16 11:16 36.6 88 16 91/61 (71) 92 08/28/16 08:00 Room Air 08/28/16 07:10 36.6 86 18 104/63 (77) 95 Room Air 08/28/16 04:00 92 Room Air 08/28/16 03:43 36.5 86 17 107/69 (82) 93 Room Air 08/27/16 23:59 92 Room Air 08/27/16 23:20 36.9 89 18 116/76 (89) 92 Room Air 08/27/16 20:14 37.0 94 17 111/71 (84) 90 Room Air 08/27/16 20:00 92 Room Air 08/27/16 18:06 37.5 98 18 130/75 92 Room Air 08/27/16 17:30 92 Room Air 08/27/16 17:28 102 18 109/75 93 08/27/16 15:35 95 16 116/75 92 Room Air 08/27/16 13:42 89 16 112/78 93 Room Air Physical Exam General Appearance: WD/WN, no apparent distress Respiratory/Chest: chest non-tender, lungs clear, normal breath sounds, no respiratory distress, no accessory muscle use Cardiovascular: regular rate, rhythm, no edema, no gallop, no murmur Skin: normal color, warm/dry, no rash Comments: [facility] - negative for significant growth, minor most likely secondary to contamination Laboratory Results Last 24 Hours Test 08/27/16 20:47 08/28/16 00:11 08/28/16 04:24 Sodium Level 144 mmol/L 145 mmol/L 145 mmol/L Potassium Level 4.9 mmol/L 4.7 mmol/L 4.6 mmol/L Chloride Level 111 mmol/L 112 mmol/L 112 mmol/L Carbon Dioxide Level 26 mmol/L 25 mmol/L 26 mmol/L Anion Gap 7.0 mmol/L 8.0 mmol/L 7.0 mmol/L Blood Urea Nitrogen 35 mg/dl 35 mg/dl 36 mg/dl Creatinine 2.80 mg/dl 2.80 mg/dl 2.80 mg/dl Est Creatinine Clear Calc Drug Dose 21.5 ml/min 21.5 ml/min 21.5 ml/min Estimated GFR () 21.3 21.3 21.3 Estimated GFR (Non- 18.4 18.4 18.4 BUN/Creatinine Ratio 12.6 12.5 12.7 Random Glucose 108 mg/dl 134 mg/dl 126 mg/dl Calcium Level 10.8 mg/dl 10.6 mg/dl 10.6 mg/dl White Blood Count 5.20 K/uL Red Blood Count 3.93 M/uL Hemoglobin 10.2 g/dL Hematocrit 33.6 % Mean Corpuscular Volume 85.5 fL Mean Corpuscular Hemoglobin 26.0 pg Mean Corpuscular Hemoglobin Concent 30.4 g/dl RDW Standard Deviation 49.1 fL RDW Coefficient of Variation 15.6 % Platelet Count 204 K/uL Mean Platelet Volume 10.0 fL Medications Current Inpatient Medications Medications (Trade) Dose Ordered Sig/Luis Route Start Time Stop Time Status Last Admin Dose Admin Acetaminophen (Tylenol Tab) 650 mg Q4H PRN PO 08/27/16 16:15 09/26/16 16:14 08/28/16 20:21 650 MG Al Hydrox/Mg Hydrox/Simethicone (Maalox Max Susp) 15 ml Q4H PRN PO 08/27/16 16:15 09/26/16 16:14 Magnesium Hydroxide (Milk Of Magnesia Susp) 30 ml Q12H PRN PO 08/27/16 16:15 09/26/16 16:14 Zolpidem Tartrate (Ambien Tab) 5 mg HSZ PRN PO 08/27/16 16:15 09/26/16 16:14 Ondansetron HCl (Zofran Inj) 4 mg Q6H PRN IV 08/27/16 16:15 09/26/16 16:14 Polyethylene (Miralax Powder Packet) 17 gm DAILY PRN PO 08/27/16 16:15 09/26/16 16:14 Alprazolam (Xanax Tab) 0.5 mg QAM PO 08/28/16 09:00 09/27/16 08:59 08/28/16 08:15 0.5 MG Escitalopram Oxalate (Lexapro Tab) 20 mg DAILY PO 08/28/16 09:00 09/27/16 08:59 08/28/16 08:15 20 MG Levothyroxine Sodium (Synthroid Tab) 100 mcg DAILYBB PO 08/28/16 06:00 09/27/16 06:59 08/28/16 05:35 100 MCG Miscellaneous Information (Order Awaiting Action) 1 ea QS N/A 08/28/16 00:00 09/27/16 00:00 Ceftriaxone Sodium 1 gm/ Dextrose 50 ml @ 100 mls/hr Q24H IV 08/28/16 11:30 09/05/16 11:59 08/28/16 11:06 100 MLS/HR Sodium Chloride 1,000 ml @ 125 mls/hr Q8H IV 08/28/16 13:30 09/27/16 13:29 08/28/16 20:21 125 MLS/HR Assessment and Plan Assessment and Plan: Possible acute renal injury - Continue IV fluids to correct dehydration causing a pre-renal azotemia - Repeat BNP to monitor Ca and Cr levels - Monitor renal output - Possible renal ultrasound if downward trends in Ca and Cr are not noted to evaluate for possible metastatic induced obstruction Hypercalcinemia secondary to dehydration - Continue IV fluids observing trends - Reassess if decrease not observed - possible bone met induced UTI symptoms - Continue ceftriaxone to empirically treat as infection cannot be completely r/ o at this point Continued [facility] stay due to: inadequate po fluid intake Discharge planning: home
[2016-08-28 14:47] LABS: BUN/CREATININE RATIO 12.7 (10-20); CALCIUM 10.3 mg/dl (8.5-10.1); CREATININE 2.7 mg/dl (0.60-1.20); POTASSIUM 4.1 mmol/L (3.5-5.1)
[2016-08-28 15:16] VITALS: BP 97/60; PULSE 94; TEMP 36.7; O2SAT 93
[2016-08-29 00:02] VITALS: BP 120/77; PULSE 88; TEMP 36.5; O2SAT 94
[2016-08-29] MEDS: SODIUM CHLORIDE 0.9% 1000ML 1,000 ML IV SCH ×2 (05:20→12:41)
[2016-08-29 05:34] LABS: HEMATOCRIT 29.7 % (37-47); MEAN CELL VOLUME 85.3 fL (80-100); MEAN CORPUSCULAR HEMOGLOBIN 26.1 pg (25-34); MEAN CORPUSCULAR HGB CONC 30.6 g/dl (32-36); MEAN PLATELET VOLUME 9.6 fL (7.4-10.4); PLATELET COUNT 163 K/uL (130-400); RED BLOOD COUNT 3.48 M/uL (4.2-5.4); WHITE BLOOD COUNT 4.19 K/uL (4.8-10.8)
[2016-08-29] MEDS: LEVOTHYROXINE 100 MCG TAB PO SCH (05:58)
[2016-08-29 06:10] LABS: CALCIUM 10.3 mg/dl (8.5-10.1); CREATININE 2.5 mg/dl (0.60-1.20); POTASSIUM 4.2 mmol/L (3.5-5.1)
[2016-08-29 07:36] VITALS: BP 138/81; PULSE 100; TEMP 37; O2SAT 94
--- NOTE | 2016-08-29 07:42 | Family Medicine Progress Note ---
Progress Note Date of Service Aug 29, 2016.
[2016-08-29] MEDS: ESCITALOPRAM OXALATE 20 MG TAB PO SCH (08:33)
[2016-08-29] MEDS: ALPRAZOLAM 0.5 MG TAB PO SCH (08:34)
--- NOTE | 2016-08-29 08:38 | DIAGNOSTIC IMAGING REPORT ---
EXAMINATION: RENAL ULTRASOUND CLINICAL HISTORY: Hematuria. Renal failure. COMPARISON STUDY: CT scan dated 02/10/2016 FINDINGS: The right kidney is surgically absent. Incidental note is made of cholelithiasis. The left kidney measures 12.4 cm in length. 3 solid left renal masses are visualized measuring 4.6 cm, 4 cm, and 1.6 cm. There is no significant hydronephrosis. A left ureteral jet was visualized. 2 rounded bladder masses are visualized measuring 3.6 cm and 2 cm respectively. IMPRESSION : 1. Surgically absent right kidney 2. Multiple solid left renal masses largest of which measures 4.6 cm 3. No evidence of left-sided hydronephrosis 4. Cholelithiasis 5.Two echogenic bladder masses were visualized measuring 3.6 cm and 2 cm respectively Electronically signed by: Robb Miller M.D. 08/29/2016 8:37 AM Dictated Date/Time: 08/29/2016 8:34 AM
[2016-08-29] MEDS: CEFTRIAXONE SOD INJ 1 GM in DEXTROSE 5% ADD-VANTAGE 50ML 50 ML IV SCH (12:41)
[2016-08-29 15:20] VITALS: BP 119/78; PULSE 96; TEMP 36.9; O2SAT 97
[2016-08-29 16:00] VITALS: O2SAT 97
[2016-08-29] MEDS ORDERED: EFF/375 PO (16:18)
--- NOTE | 2016-08-29 16:23 | Discharge Instructions ---
Discharge Instructions Date of Service Aug 29, 2016. Admission Reason for Admission: Acute Renal Failure, Hypercalcemia Discharge Discharge Diagnosis / Problem: Acute on Chronic Kidney Disease secondary to Metastases Discharge Goals Goal(s): Decrease discomfort, Improve function, Increase independence, Improve disease control, Improve nutritional status, Learn about illness Activity Recommendations Activity Limitations: resume your previous activity . Instructions / Follow-Up Instructions / Follow-Up Please keep your regular hematology oncology appointments. You have been discharged on a new antidepressant medication called Effexor. You are to take 1 pill 37.5mg every day for the first 7 days. Then 2 pills each day thereafter. Please see your primary care doctor within the next 4 weeks for a renewal of this medication. In order to improve your mood please continue to do enjoyable activities such as scrapbooking, talking with friends and visiting interesting places. You may continue to pass bright red, dark red and brown clots in your urine. If you experience burning while peeing or abdominal tenderness you may be experiencing a new onset urinary tract infection. If this is the case please follow up with your primary care doctor. Current Hospital Diet Patient's current hospital diet: Regular Diet Discharge Diet Recommended Diet: Regular Diet Pending Studies Studies pending at discharge: no Medical Emergencies . Who to Call and When: Medical Emergencies: If at any time you feel your situation is an emergency, please call 911 immediately. . Non-Emergent Contact Non-Emergency issues call your: Primary Care Provider . . "Provider Documentation" section prepared by Hayder Connolly. . VTE Core Measure Inpt VTE Proph given/why not?: Jaspreet Atkins, SCD's Resident Involvement: Resident Care Provided Care Provided: Adult Hospital Medicine
[2016-08-29 16:28] VITALS: BP 119/78; PULSE 96; TEMP 36.9; O2SAT 97
[2016-08-29] MEDS: ACETAMINOPHEN 325 MG TAB PO PRN (17:03)
--- NOTE | 2016-08-29 17:27 | Medical Student: [facility] ---
Med Student Progress Note Date of Service Aug 29, 2016. Subjective Pt evaluation today including: conversation w/ patient, physical exam, chart review, lab review, review of studies Pain: RT proximal LE with walkin/10 Voiding: no voiding problems, no incontinence Patient is a 56yo female with history of metastatic RCC resulting in RT nephrecomy with metastasis to brain, posterior orbit, skin, breasts bilateral, lungs bilateral, and spine. Patient presented with 7 day history of burning with urination, increased urinary frequency, hematuria, and intermittent passage of clots or varying size. Today patient states she is feeling well with no dysuria, urgency, hematuria, or clots. She denies any atypical flank/abd pain , SOB, tachycardia, palpitations, fevers, chills, nausea, vomiting, constipation , or diarrhea. With moving from the telemetry unit to the oncology floor, patient admits to felling emotional, describing it as mild "anxiety". She says that it is because she is being visually reminded of her extended boyle with cancer and all of the things that she has had to go through during the treatment course and how she's "just so tired". She does qualify that she is not giving up and that she wants to be "the one in a million who beats this thing", she says that these feelings usually come when she is alone, but resolve rapidly following the emotional trigger and are not frequent. She denies trouble sleeping, feelings of depression or worthlessness, and suicidal ideation at this time. She largely attributes her emotional state to the location as well as lacking a "milestone" that had previously motivated her such as her son's wedding. Patient also reports new RT lower extremity pain with walking. She says that it began in her anterior proximal calf but has since relocated to her anterior thigh. She is concerned due to HX of DVT. Denies calf tenderness, pain at rest, swelling, or difficulty moving the extremity. Review of Systems Constitutional: + problem reported, No fever, No chills, No sweats, No weakness , No fatigue Respiratory: No shortness of breath, No dyspnea on exertion (some chronically, no change), No dyspnea at rest Cardiac: No chest pain, No edema, No palpitations Breast: + breast lump (secondary to RCC metastases) Abdomen: No pain, No nausea, No vomiting, No diarrhea, No constipation Musculoskeletal: + muscle pain, No joint pain, No swelling, No calf pain Female : + see HPI, No dysuria, No urinary frequency, No hematuria (no clot passage "since last week"), No incontinence Psychiatric: + see HPI All Other Systems: Reviewed and Negative Objective Vital Signs Date Time Temp Pulse Resp B/P (MAP) Pulse Ox O2 Delivery O2 Flow Rate FiO2 08/29/16 16:28 36.9 96 16 97 Room Air 08/29/16 16:00 97 Room Air 08/29/16 15:20 36.9 96 16 119/78 (92) 97 Room Air 08/29/16 08:00 Room Air 08/29/16 07:36 37.0 100 16 138/81 (100) 94 08/29/16 00:02 36.5 88 20 120/77 (91) 94 Room Air 08/29/16 00:00 Room Air Physical Exam General Appearance: WD/WN, no apparent distress Respiratory/Chest: chest non-tender, lungs clear, normal breath sounds, no respiratory distress, no accessory muscle use Cardiovascular: regular rate, rhythm, no edema, no gallop, no JVD, no murmur Abdomen: non tender, soft Extremities: normal range of motion (RT LE at knee + ankle), non-tender (over area of reported pain with walking), normal inspection, no pedal edema, no calf tenderness Neurologic/Psychiatric: alert, normal mood/affect (Appropriate despite reported emotional change), + pertinent finding (Mild AMS ) Skin: normal color, warm/dry, no rash Comments: Change in mental status - unclear if different than patient's baseline state. She changed the interviewers name + occupation despite acknowledged introduction , changed details of clot passage timing stating that there has been nothing since last week when she said she passed several small clots 08/28 morning. When discussing patient with attending and resident, resident mentioned that when he rounded on patient after this interview was complete, patient denied speaking with any medical student today although interaction lasted approx. 40min. For the most part she seems completely coherent and orientated and then a small detail or fact is brought up that raises questions. Imaging Impression : 1. Surgically absent right kidney 2. Multiple solid left renal masses largest of which measures 4.6 cm 3. No evidence of left-sided hydronephrosis 4. Cholelithiasis 5.Two echogenic bladder masses were visualized measuring 3.6 cm and 2 cm respectively Laboratory Results Last 24 Hours Test 08/29/16 05:00 White Blood Count 4.19 K/uL Red Blood Count 3.48 M/uL Hemoglobin 9.1 g/dL Hematocrit 29.7 % Mean Corpuscular Volume 85.3 fL Mean Corpuscular Hemoglobin 26.1 pg Mean Corpuscular Hemoglobin Concent 30.6 g/dl RDW Standard Deviation 50.0 fL RDW Coefficient of Variation 16.0 % Platelet Count 163 K/uL Mean Platelet Volume 9.6 fL Sodium Level 146 mmol/L Potassium Level 4.2 mmol/L Chloride Level 116 mmol/L Carbon Dioxide Level 25 mmol/L Anion Gap 5.0 mmol/L Blood Urea Nitrogen 32 mg/dl Creatinine 2.50 mg/dl Est Creatinine Clear Calc Drug Dose 24.1 ml/min Estimated GFR () 24.4 Estimated GFR (Non- 21.1 BUN/Creatinine Ratio 13.0 Random Glucose 91 mg/dl Calcium Level 10.3 mg/dl 25-Hydroxy Vitamin D Total 22.1 ng/ml Parathyroid Hormone (Intact) 10.8 pg/mL Medications Current Inpatient Medications Medications (Trade) Dose Ordered Sig/Luis Route Start Time Stop Time Status Last Admin Dose Admin Acetaminophen (Tylenol Tab) 650 mg Q4H PRN PO 08/27/16 16:15 09/26/16 16:14 08/28/16 20:21 650 MG Al Hydrox/Mg Hydrox/Simethicone (Maalox Max Susp) 15 ml Q4H PRN PO 08/27/16 16:15 09/26/16 16:14 08/28/16 21:52 15 ML Magnesium Hydroxide (Milk Of Magnesia Susp) 30 ml Q12H PRN PO 08/27/16 16:15 09/26/16 16:14 Zolpidem Tartrate (Ambien Tab) 5 mg HSZ PRN PO 08/27/16 16:15 09/26/16 16:14 Ondansetron HCl (Zofran Inj) 4 mg Q6H PRN IV 08/27/16 16:15 09/26/16 16:14 Polyethylene (Miralax Powder Packet) 17 gm DAILY PRN PO 08/27/16 16:15 09/26/16 16:14 Alprazolam (Xanax Tab) 0.5 mg QAM PO 08/28/16 09:00 09/27/16 08:59 08/29/16 08:34 0.5 MG Escitalopram Oxalate (Lexapro Tab) 20 mg DAILY PO 08/28/16 09:00 09/27/16 08:59 08/29/16 08:33 20 MG Levothyroxine Sodium (Synthroid Tab) 100 mcg DAILYBB PO 08/28/16 06:00 09/27/16 06:59 08/29/16 05:58 100 MCG Miscellaneous Information (Order Awaiting Action) 1 ea QS N/A 08/28/16 00:00 09/27/16 00:00 Ceftriaxone Sodium 1 gm/ Dextrose 50 ml @ 100 mls/hr Q24H IV 08/28/16 11:30 09/05/16 11:59 08/29/16 12:41 100 MLS/HR Sodium Chloride 1,000 ml @ 125 mls/hr Q8H IV 08/28/16 13:30 09/27/16 13:29 08/29/16 12:41 125 MLS/HR Assessment and Plan Assessment and Plan: While UTI cannot be ruled out at this time due to ABX therapy, urinary hematuria , frequency, and passage of clots are most likely secondary to either new metastases to LT kidney and bladder, supported by renal US and maintained elevated Ca levels despite rehydration therapy. Her decreased Hgb and Hct on repeat CBC are likely the result of continued hematuria and clot passage despite patient denying these SX currently. As her urinary symptoms have resolved, following discussion with for information corroboration patient may be eligible for discharge New metastases - Consult with patient's to gain a clearer idea of patient's AMS and actual symptoms - Ensure patient is scheduled to F/U with new oncologist - new treatment v. palliative care Pain in lower extremity, likely secondary to a muscular/disuse origin - Acetaminophen as needed for pain - Despite HX DVT, patient is already anticoagulated and has had a recent stent placed in that extremity so no imaging/intervention is required at this time Continued [facility] stay due to: other (Information provided by patient must be corroborated by as well as discussion as to discharge plan) Discharge planning: home
--- NOTE | 2016-08-29 18:10 | Discharge Summary ---
Discharge Summary Date of Service Aug 29, 2016. (Hayder Connolly M.D.) Discharge Summary Admission Date: Aug 27, 2016 at 16:18 Discharge Date: Aug 29, 2016 Discharge Disposition: Home Principal Diagnosis: Hematuria from Malignency Immunizations: Have You Had Influenza Vaccine: Yes History of Tetanus Vaccine?: Yes History of Pneumococcal: Yes History of Hepatitis B Vaccine: No Procedures: EXAMINATION: RENAL ULTRASOUND CLINICAL HISTORY: Hematuria. Renal failure. COMPARISON STUDY: CT scan dated 02/10/2016 FINDINGS: The right kidney is surgically absent. Incidental note is made of cholelithiasis. The left kidney measures 12.4 cm in length. 3 solid left renal masses are visualized measuring 4.6 cm, 4 cm, and 1.6 cm. There is no significant hydronephrosis. A left ureteral jet was visualized. 2 rounded bladder masses are visualized measuring 3.6 cm and 2 cm respectively. IMPRESSION : 1. Surgically absent right kidney 2. Multiple solid left renal masses largest of which measures 4.6 cm 3. No evidence of left-sided hydronephrosis 4. Cholelithiasis 5.Two echogenic bladder masses were visualized measuring 3.6 cm and 2 cm respectively (Hayder Connolly M.D.) Discharge Disposition: Home (Romeo Man D.O.) Medication Reconciliation New Medications: Venlafaxine Hcl (Effexor) 37.5 Mg Tab 37.5 MG PO DAILY for 30 Days, #50 TAB 1 Tab Daily for the 1st week. 2 Tabs Daily thereafter. Continued Medications: Acetaminophen Tab (Tylenol) 325 Mg Tab 325 MG PO DIRECTED PRN for Moderate Pain, TAB Alprazolam (Xanax) 0.5 Mg Tab 0.5 MG PO QAM, TAB Levothyroxine Sodium (Synthroid) 100 Mcg Tab 1 TAB PO DAILY Ondansetron Hcl (Zofran) 8 Mg Tab 8 MG PO PRN PRN for Nausea or Vomiting, TAB Probiotic Product (Probiotic) 1 Tab Tab 1 TAB PO DAILY [tumeric] () 1 CAP PO BID Discontinued Medications: Escitalopram Oxalate (Lexapro) 20 Mg Tab 20 MG PO DAILY, TAB Sulfamethoxazole-Trimethoprim (Bactrim Ds 800MG/160MG) 1 Tab Tab 1 TAB PO BID, #6 TAB Discharge Exam The patient was seen and examined at bedside. States that she is still passing a few brown clots. ROS: No dysuria, no fevers, no flank pain, no abdominal pain. Patient is resting comfortably in bed. Eating and urinating well. Plan of care was described to the patient and all questions were answered. 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 Firm non tender 2cm diameter 1cm raised subcunateous nodules posterior midline of scalp likely representing cyst, lipoma or metastasis.) (Hayder Connolly M.D.) Hospital Course 56F with metastatic renal CA (brain, abdomen, kidney, bladder), CKD 4, ICH, DVT. Pt was treated for a UTI over the past week with Bactrim. She has had persistent dysuria and mild hematuria for over one month and this does not seem to have improved as well as episodic confusion x 6 months. Prior to admission she developed some abdominal pain one day prior and then developed nausea and vomiting. Urine culture at [facility] was contaminated. Pt is voiding brown colored urine. Pt started on Ceftriaxone in the ER. Renal US showed metastatic disease infiltrating kidney and bladder. Discussed with patient that hematuria is likely from invasion of cancer into kidney parenchyma and or bladder. Hemoglobin was stable during admission. Pt advised that this is a progression of her cancer and symptoms may recur. Pt advised to drink at least 60 ounces of fluid to stay well hydrated. Pt reports depressed mood. Pt advised to Discontinue Lexapro and start Effexor 37.5mg daily x 1 week and then 75mg daily thereafter and follow up with PCP. Periodic confusion is likely secondary to brain metastasis. Total Time Spent: Greater than 30 minutes This includes examination of the patient, discharge planning, medication reconciliation, and communication with other providers. (Hayder Connolly M.D.) Resident Physician Supervision Note: I interviewed and examined the patient. Discussed with Dr. Connolly and agree with findings and plan as documented in the note. Any exceptions or clarifications are listed here: None Documented By: Romeo Man feeling better acutely. notes depression ongoing. wonders about med changes for depression. extensive discussion >30mins face to face in discussions with pt and . ROS otherwise negative except for as above vitals noted nad breathing unlabored no pallor or icterus ongoing stable similar short term memory loss notes is current baseline AMS - appearing more due to dehydration than anything else - probably predominantly from poor PO intake (?+/- some effects from hypercalcemia but with hindsight this appears to be more effect from hemoconcentration tahn cause since baseline calcium slightly high has appeared to be the norm since rehydration hematuria - [facility] [place] culture appearing to be skin gracia, current culture >3 types of organisms - so unfortunately does not appear related to infection. w renal US very concerning for new mets - likely is hematuria from malignancy oozing blood into tract. f/u periodic CBC, f/u oncology at [facility] this coming week depression - extensive discussion on lifestyle as best her situation will allow ; discussed risks/benefits/alternatives and low yield on med change, but after thinking about options prseented, she opts for transittion to effexor. explained to her and . given unfortunatley short prognosis likely - will transition quickly to hopefully get antidepressant benefit sooner hypercalcemia - most likely hemoconcentration + a baseline elevation from mets. vitamin D sl low at 22.1 (can replace at discretion of PCP vs not wanting to simply add more pills) and PTH appropriately low at 10.8. f/u periodic BMP metastatic renal CA - extensive discussion - very concerning for poor prognosis , but agreed that since she is yougn without other comorbidities, it is worth seeing what [facility] clinical trial would have to offer. discussed that it's also OK to say "no" if treatment does not sound like something they want to pursue further, and discussed that in hospice literature once someone passes where treatmetn is still of benefit, actually not treating not only lessens suffering , but lengthens life. stable for home periodic CBC, BMP Total Time Spent: Greater than 30 minutes (Romeo Man, D.O.) Discharge Instructions Please refer to the electronic Patient Visit Report (Discharge Instructions) for additional information. (Hayder Connolly M.D.) Additional Copies To Hayder Solorio M.D. Resident Involvement: Resident Care Provided Care Provided: Adult [facility] (Hayder Connolly M.D.)
[2016-09-23] MEDS ORDERED: MRPSR15 PO (09:46)
[2016-09-23] MEDS ORDERED: ONDA8TAB12 PO (09:46)
[2016-09-23] MEDS ORDERED: ALPR-411 PO (09:46)
[2016-09-23] MEDS ORDERED: MORPHINE PO (09:50)
[2016-09-23] MEDS ORDERED: CIPR250T5 PO (09:50)
== END 2016-08-29 17:20 | disposition home or self-care (01) | DRG 687 ==
LOC: C.EDB 10:37 → C.2T 16:18 → ENRESERV 16:32 → C.4E 08-28 20:09
PROVIDERS: ADMIT Internal Medicine; ATTEND Family Medicine
DX: C64.9 Malignant neoplasm of unspecified kidney, except renal pelvis (principal); N17.9 Acute kidney failure, unspecified; E83.52 Hypercalcemia; C79.51 Secondary malignant neoplasm of bone; C78.00 Secondary malignant neoplasm of unspecified lung; C79.81 Secondary malignant neoplasm of breast; C79.2 Secondary malignant neoplasm of skin; N18.4 Chronic kidney disease, stage 4 (severe); N39.0 Urinary tract infection, site not specified; Z90.5 Acquired absence of kidney; Z86.718 Personal history of other venous thrombosis and embolism; Z87.891 Personal history of nicotine dependence

== ENCOUNTER 2016-09-17 10:04 | Inpatient (IN) | payer OTHER ==
[~2016-09-17] VITALS: Ht 162.6 cm; Wt 72.8 kg
[~2016-09-17 10:04] MED LIST changes: +EFF/375 PO; -ESCI1TAB10 PO; -FENT75DI2 TOP; -LEVO125T5 PO; -PRENTAB26 PO; +PROB1TAB16 PO; +SYN100 PO
[2016-09-17] MEDS ORDERED: ESCI1TAB6 PO (10:22)
[2016-09-17] MEDS ORDERED: SODIUM CHLORIDE 0.9% 1000ML 1,000 ML IV STA (11:18)
[2016-09-17] MEDS ORDERED: ONDANSETRON INJ 2 MG/ML 2 ML VIAL IV STA (11:18)
--- NOTE | 2016-09-17 11:54 | DIAGNOSTIC IMAGING REPORT ---
CHEST ONE VIEW PORTABLE CLINICAL HISTORY: Emesis dyspnea COMPARISON STUDY: 01/05/2016 FINDINGS: Interval development of a left suprahilar mass process. Maximum dimensions are approximately 4.5 x 3.5 cm. Developing nodularity right lung base with a probable pleural-based mass laterally. Central catheter in superior vena cava. Postoperative changes of the low thoracic region. IMPRESSION: Interval development of left suprahilar and right basilar masslike/nodular changes as discussed. CT of the chest is recommended as follow-up. Electronically signed by: Hayder Byrne M.D. 09/17/2016 11:53 AM Dictated Date/Time: 09/17/2016 11:51 AM
--- NOTE | 2016-09-17 12:55 | DIAGNOSTIC IMAGING REPORT ---
CT SCAN OF THE BRAIN WITHOUT IV CONTRAST CLINICAL HISTORY: Emesis. Recent intracranial hemorrhage. History of metastatic renal cell carcinoma. COMPARISON STUDY: CT scans of the brain dated 07/14/2016 and 01/05/2016. MRI of the brain dated 02/12/2016. TECHNIQUE: Unenhanced axial CT scan of the brain is performed from the vertex to the skull base. CT DOSE: 729.78 mGycm FINDINGS: Brain parenchyma: There are age-related involutional changes noting [id number] patchy subcortical and periventricular microangiopathic change. Left cerebellar encephalomalacia is unchanged and likely related to previous surgery. There is unchanged edema identified in the right frontal lobe at the site of the patient's known metastatic lesion. The lesion is seen on image #16 and measures at least 1.1 cm. There is increasing hyperdensity within this lesion, likely representing hemorrhage. A lesion in the body of the left lateral ventricle is again seen on image #18 has decreased in size from 07/14/2016 and is significantly less hyperdense, now measuring 1.7 cm (previously measuring 2.6 cm). Intraventricular hemorrhage seen on 07/14/2016 has resolved. There is increasing edema identified within the right occipital lobe on image #17. There is no midline shift or evidence of acute territorial ischemia by CT criteria. No extra-axial fluid collection is seen. Ventricles, sulci, cisterns: Prominent secondary to involutional change. See above. Intracranial vasculature: There is atherosclerotic calcification of the cavernous carotid and vertebral arteries. Calvarium: Again seen are postoperative changes from left occipital craniotomy. There is an osteolytic lesion identified in the occipital calvarium on axial image #14 which measures up to 1.6 cm. there is associated soft tissue component seen extending into the scalp. No additional destructive calvarial lesions are clearly identified. Sinuses and mastoids: The visualized paranasal sinuses are clear. The mastoid air cells are well pneumatized. Orbits: The bony orbits are grossly intact. A lesion in the left superior orbital space is again noted on image #6. Soft tissues: Soft tissue nodules in the right frontoparietal scalp are again noted. IMPRESSION: 1. Again seen is a metastatic focus in the right frontal lobe with unchanged surrounding edema. This lesion appears increasingly hyperdense from 07/14/2016, likely representing a small volume of hemorrhage. 2. A mass lesion in the left lateral ventricle has decreased in size from previous and has significantly decreased in density. Intraventricular hemorrhage seen previously has resolved. 3. There is a new focus of edema identified within the right occipital lobe likely related to a new metastatic lesion. The lesion itself was not well visualized. 4. There is a new calvarial lesion identified in the occipital bone just to the left of midline. A soft tissue component extends into the scalp. 5. A lesion in the superior left orbit is partially imaged and likely unchanged. 6. There is no evidence of acute territorial ischemia by CT criteria. 7. Postoperative change and encephalomalacia in the left cerebellar hemisphere is similar to previous. Electronically signed by: Lopez Potts M.D. 09/17/2016 12:54 PM Dictated Date/Time: 09/17/2016 12:43 PM
[2016-09-17 13:45] LABS: BASO % 0.2 %; BASO ABS # 0.01 K/uL (0-0.2); EOS % 1.1 %; HEMATOCRIT 26.2 % (37-47); IG% 0.4 %; LYMPH % 18.3 %; LYMPH ABS # 0.86 K/uL (1.2-3.4); MEAN CELL VOLUME 82.1 fL (80-100); MEAN CORPUSCULAR HGB CONC 31.7 g/dl (32-36); MEAN PLATELET VOLUME 9.2 fL (7.4-10.4); MONO % 3.6 %; NEUT % 76.4 %; PLATELET COUNT 202 K/uL (130-400); RED BLOOD COUNT 3.19 M/uL (4.2-5.4); WHITE BLOOD COUNT 4.69 K/uL (4.8-10.8)
--- NOTE | 2016-09-17 13:58 | EMERGENCY ROOM VISIT NOTE ---
History First contact with patient: 11:02 Chief Complaint: VOMITING Stated Complaint: VOMITING Nursing Triage Summary: pt reports hx of CA in every body organ" arrives via EMS with NV X 3 days zofran no longer helping and decreased appetite History of Present Illness The patient is a 56 year old female who presents to the emergency department via private vehicle accompanied by male with complaints of "vomiting". The patient and male in the room state that the patient has a history of cancer, and has progressed throughout the body. The patient last week underwent an IM maurizio to help strengthen the femur secondary to cancer. This was performed in [place]. The patient has recently been in a nursing facility, and since Thursday the patient has not had much food intake, and is not drinking liquids rather persists to vomit. The male in the room is concerned that she may be very dehydrated therefore has brought her here today. The mail teller also states that she has been hallucinating. The patient states that the cancer is advanced therefore it was decided to stop chemotherapy. The patient does no blood in the urine, has felt feverish recently, has right thigh pain, but denies chest pain or shortness of breath. Review of Systems A complete 10-point Review of Systems was discussed with the patient, with pertinent positives and negatives listed in the History of Present Illness. All remaining Review of Systems questions can be considered negative unless otherwise specified. 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 (17) Vasogenic cerebral edema (18) Venous thrombosis Surgical Problems: (1) S/p ankle surgery (2) S/P craniotomy (3) S/P insertion of IVC (inferior vena caval) filter (4) S/p nephrectomy Family History FH: cancer FATHER (melanoma) MOTHER (leukemia) Social History Smoking Status: Former Smoker Alcohol Use: none Drug Use: none Marital Status: Housing Status: lives with family Current/Historical Medications Scheduled Alprazolam (Xanax), 0.5 MG PO QAM Escitalopram Oxalate (Lexapro), Unknown Dose PO DAILY Levothyroxine Sodium (Synthroid), 1 TAB PO DAILY Scheduled PRN Acetaminophen Tab (Tylenol), 325 MG PO DIRECTED PRN for Moderate Pain Ondansetron Hcl (Zofran), 8 MG PO PRN PRN for Nausea or Vomiting Allergies Coded Allergies: POLLEN (Verified Allergy, Mild, sneezing, 08/27/16) Physical Exam Vital Signs Date Time Temp Pulse Resp B/P (MAP) Pulse Ox O2 Delivery O2 Flow Rate FiO2 09/17/16 18:12 94 20 116/76 96 Room Air 09/17/16 17:14 103 20 132/82 96 Room Air 09/17/16 15:20 101 22 111/70 97 Room Air 09/17/16 13:56 95 20 121/78 98 Room Air 09/17/16 13:16 91 09/17/16 12:16 97 Room Air 09/17/16 12:10 89 20 120/74 96 Room Air 09/17/16 10:11 36.8 98 20 119/78 96 Room Air Physical Exam VITAL SIGNS - Vital signs and nursing notes were reviewed. Vital signs are stable at this time. GENERAL -56-year-old female appearing her stated age who is in no acute distress. Communicates well with provider and answers questions appropriately. SKIN - Without rashes. There are 2 small red raised regions on the patient's scalp overlying previous surgical region. No rashes noted. HEAD - NC/AT. EYES - PERRL with EOMI bilaterally. Sclera anicteric. Palpebral conjunctiva pink and moist with no injection noted. EARS - No deformities of external structures noted on gross examination bilaterally. NOSE - Midline and without cyanosis. No epistaxis or purulent drainage noted. MOUTH/OROPHARYNX - Without perioral cyanosis. Oral mucosa is dry. LUNGS - Chest wall symmetric without accessory muscle use, intercostals retractions, or central cyanosis. Normal vesicular breath sounds CTA B/L. No wheezes, rales, or rhonchi appreciated. CARDIAC - RRR with S1/S2. No murmur, rubs, or gallops appreciated. Medical Decision & Procedures ER Provider Diagnostic Interpretation: CHEST ONE VIEW PORTABLE CLINICAL HISTORY: Emesis dyspnea COMPARISON STUDY: 01/05/2016 FINDINGS: Interval development of a left suprahilar mass process. Maximum dimensions are approximately 4.5 x 3.5 cm. Developing nodularity right lung base with a probable pleural-based mass laterally. Central catheter in superior vena cava. Postoperative changes of the low thoracic region. IMPRESSION: Interval development of left suprahilar and right basilar masslike/nodular changes as discussed. CT of the chest is recommended as follow-up. Electronically signed by: Hayder Byrne M.D. 09/17/2016 11:53 AM Dictated Date/Time: 09/17/2016 11:[address] SCAN OF THE BRAIN WITHOUT IV CONTRAST CLINICAL HISTORY: Emesis. Recent intracranial hemorrhage. History of metastatic renal cell carcinoma. COMPARISON STUDY: CT scans of the brain dated 07/14/2016 and 01/05/2016. MRI of the brain dated 02/12/2016. TECHNIQUE: Unenhanced axial CT scan of the brain is performed from the vertex to the skull base. CT DOSE: 729.78 mGycm FINDINGS: Brain parenchyma: There are age-related involutional changes noting [id number] patchy subcortical and periventricular microangiopathic change. Left cerebellar encephalomalacia is unchanged and likely related to previous surgery. There is unchanged edema identified in the right frontal lobe at the site of the patient's known metastatic lesion. The lesion is seen on image #16 and measures at least 1.1 cm. There is increasing hyperdensity within this lesion, likely representing hemorrhage. A lesion in the body of the left lateral ventricle is again seen on image #18 has decreased in size from 07/14/2016 and is significantly less hyperdense, now measuring 1.7 cm (previously measuring 2.6 cm). Intraventricular hemorrhage seen on 07/14/2016 has resolved. There is increasing edema identified within the right occipital lobe on image #17. There is no midline shift or evidence of acute territorial ischemia by CT criteria. No extra-axial fluid collection is seen. Ventricles, sulci, cisterns: Prominent secondary to involutional change. See above. Intracranial vasculature: There is atherosclerotic calcification of the cavernous carotid and vertebral arteries. Calvarium: Again seen are postoperative changes from left occipital craniotomy. There is an osteolytic lesion identified in the occipital calvarium on axial image #14 which measures up to 1.6 cm. there is associated soft tissue component seen extending into the scalp. No additional destructive calvarial lesions are clearly identified. Sinuses and mastoids: The visualized paranasal sinuses are clear. The mastoid air cells are well pneumatized. Orbits: The bony orbits are grossly intact. A lesion in the left superior orbital space is again noted on image #6. Soft tissues: Soft tissue nodules in the right frontoparietal scalp are again noted. IMPRESSION: 1. Again seen is a metastatic focus in the right frontal lobe with unchanged surrounding edema. This lesion appears increasingly hyperdense from 07/14/2016, likely representing a small volume of hemorrhage. 2. A mass lesion in the left lateral ventricle has decreased in size from previous and has significantly decreased in density. Intraventricular hemorrhage seen previously has resolved. 3. There is a new focus of edema identified within the right occipital lobe likely related to a new metastatic lesion. The lesion itself was not well visualized. 4. There is a new calvarial lesion identified in the occipital bone just to the left of midline. A soft tissue component extends into the scalp. 5. A lesion in the superior left orbit is partially imaged and likely unchanged. 6. There is no evidence of acute territorial ischemia by CT criteria. 7. Postoperative change and encephalomalacia in the left cerebellar hemisphere is similar to previous. Electronically signed by: Lopez Potts M.D. 09/17/2016 12:54 PM Dictated Date/Time: 09/17/2016 12:43 PM Laboratory Results 09/17/16 13:25 Red Blood Count 3.19, Mean Corpuscular Volume 82.1, Mean Corpuscular Hemoglobin 26.0, Mean Corpuscular Hemoglobin Concent 31.7, Mean Platelet Volume 9.2, Neutrophils (%) (Auto) 76.4, Lymphocytes (%) (Auto) 18.3, Monocytes (%) (Auto) 3.6, Eosinophils (%) (Auto) 1.1, Basophils (%) (Auto) 0.2, Neutrophils # (Auto) 3.58, Lymphocytes # (Auto) 0.86, Monocytes # (Auto) 0.17, Eosinophils # (Auto) 0.05, Basophils # (Auto) 0.01 09/17/16 13:25 Test 09/17/16 13:25 09/17/16 13:35 White Blood Count 4.69 K/uL (4.8-10.8) Red Blood Count 3.19 M/uL (4.2-5.4) Hemoglobin 8.3 g/dL (12.0-16.0) Hematocrit 26.2 % (37-47) Mean Corpuscular Volume 82.1 fL (80-100) Mean Corpuscular Hemoglobin 26.0 pg (25-34) Mean Corpuscular Hemoglobin Concent 31.7 g/dl (32-36) Platelet Count 202 K/uL (130-400) Mean Platelet Volume 9.2 fL (7.4-10.4) Neutrophils (%) (Auto) 76.4 % Lymphocytes (%) (Auto) 18.3 % Monocytes (%) (Auto) 3.6 % Eosinophils (%) (Auto) 1.1 % Basophils (%) (Auto) 0.2 % Neutrophils # (Auto) 3.58 K/uL (1.4-6.5) Lymphocytes # (Auto) 0.86 K/uL (1.2-3.4) Monocytes # (Auto) 0.17 K/uL (0.11-0.59) Eosinophils # (Auto) 0.05 K/uL (0-0.5) Basophils # (Auto) 0.01 K/uL (0-0.2) RDW Standard Deviation 46.7 fL (36.4-46.3) RDW Coefficient of Variation 15.3 % (11.5-14.5) Immature Granulocyte % (Auto) 0.4 % Immature Granulocyte # (Auto) 0.02 K/uL (0.00-0.02) Anisocytosis PRESENT Echinocytes 1+ Prothrombin Time 15.6 SECONDS (9.0-12.0) Prothromb Time International Ratio 1.4 (0.9-1.1) Activated Partial Thromboplast Time 32.6 SECONDS (21.0-31.0) Partial Thromboplastin Ratio 1.3 Anion Gap 15.0 mmol/L (3-11) Est Creatinine Clear Calc Drug Dose 4.7 ml/min Estimated GFR () 3.3 Estimated GFR (Non- 2.9 BUN/Creatinine Ratio 8.3 (10-20) Calcium Level 10.2 mg/dl (8.5-10.1) Magnesium Level 2.8 mg/dl (1.8-2.4) Total Bilirubin 0.4 mg/dl (0.2-1) Aspartate Amino Transf (AST/SGOT) 25 U/L (15-37) Alanine Aminotransferase (ALT/SGPT) 6 U/L (12-78) Alkaline Phosphatase 77 U/L (45-117) Total Creatine Kinase 16 U/L (26-192) Total Protein 6.3 gm/dl (6.4-8.2) Albumin 2.7 gm/dl (3.4-5.0) Globulin 3.6 gm/dl (2.5-4.0) Albumin/Globulin Ratio 0.8 (0.9-2) Thyroid Stimulating Hormone (TSH) 2.940 uIu/ml (0.300-4.500) Bedside Lactic Acid Venous 0.57 mmol/L (0.90-1.70) Medications Administered Medications (Trade) Dose Ordered Sig/Luis Route Start Time Stop Time Status Last Admin Dose Admin Sodium Chloride 1,000 ml @ 200 mls/hr Q5H STAT IV 09/17/16 11:18 09/17/16 18:22 DC 09/17/16 12:15 200 MLS/HR Ondansetron HCl (Zofran Inj) 4 mg NOW STAT IV 09/17/16 11:18 09/17/16 11:20 DC 09/17/16 12:15 4 MG Calcium Gluconate (Calcium Gluconate 10%) 1,000 mg NOW STAT IV 09/17/16 14:35 09/17/16 14:37 DC 09/17/16 15:08 1,000 MG Insulin Human Regular (novoLIN-R U-100 PER UNIT) 10 units NOW STAT IV 09/17/16 14:35 09/17/16 14:37 DC 09/17/16 15:10 10 UNITS Dextrose (Dextrose 50% 50ML Syringe) 50 ml NOW STAT IV 09/17/16 14:35 09/17/16 14:37 DC 09/17/16 15:08 50 ML Sodium Chloride 500 ml @ 999 mls/hr Q31M STAT IV 09/17/16 14:35 09/17/16 15:05 DC 09/17/16 15:10 999 MLS/HR Sodium Bicarbonate 150 meq/Dextrose 1,150 ml @ 150 mls/hr Q7H40M IV 09/17/16 18:30 10/17/16 18:29 09/17/16 19:02 150 MLS/HR Medical Decision Patient was seen and evaluated as above. After obtaining a thorough history and physical examination IV access was attempted, and the above workup was performed. Patient's vascular access was very difficult, and medicine was able be administered through the port, however drawn blood was not possible from this apparatus. She was hydrated with 1 L of normal saline at 200 mL's per hour , and quickly changed to 1 L/h with 200 mils per hour running at baseline. The patient presents to us today with cancer affecting many body systems. At this point it seems as though she has decided to stop chemotherapy. She is describing pain in the right femur, and nausea, inability to all right foods or liquids. Her CBC reveals white blood cell count at 4.69, hemoglobin of 8.3. Coagulation with INR 1.4. Sodium low at 133, potassium high 6.3, anion gap of 15, BUN 108, creatinine 13, [id number] lactic is low. CT of the head reveals interval development. Chest x-ray also reveals interval development. It appears that the patient is already aware of the chest findings, I suspect that other imaging has been done at outside facilities. The head CT I suspect also is something that has been followed in the past at other facilities. The patient case was discussed with my attending, and the decision was made to give the patient insulin, calcium gluconate, and more fluids. This is to correct the hyperkalemia. Bedside EKG was stat and reveals normal sinus rhythm, no ectopy or ischemic change. No significant change compared to previous. The patient at this time appears to be in need of dialysis, and is critical. A thorough discussion was had with the patient regarding whether or not to pursue dialysis and the decision was made to pursue this. The case was discussed with hospitalist, who will provide further evaluation and management. Please refer to further documentation regarding the patient's stay. In evaluation treatment this patient following differential diagnoses were entertained: Metastatic advancement, elevated potassium, calcium, electrolyte disturbance, among others. Impression Primary Impression: Vomiting Additional Impressions: ARF (acute renal failure) Hyperkalemia Anemia Critical Care I have personally spent greater than 35 minutes of critical care time in the direct management of this patient. This includes bedside care, interpretation of diagnostic studies, and testing, discussion with consultants, patient, and family members, and other required patient management activities. This 35 minutes is in excess of all separately billable procedures. Departure Information Dispostion Admitted as an inpatient Condition POOR Referrals Hayder Solorio M.D. (PCP) Patient Instructions [facility] Problem Qualifiers
[2016-09-17 14:00] LABS: INR 1.4 (0.9-1.1); PARTIAL THROMBOPLASTIN RATIO 1.3; PROTHROMBIN TIME (PATIENT) 15.6 SECONDS (9.0-12.0)
[2016-09-17 14:16] LABS: ANISOCYTOSIS PRESENT; COMPLETE YES; ECHINOCYTES 1+
[2016-09-17 14:27] LABS: ALB/GLOB RATIO 0.8 (0.9-2); BUN/CREATININE RATIO 8.3 (10-20); CALCIUM 10.2 mg/dl (8.5-10.1); MAGNESIUM 2.8 mg/dl (1.8-2.4); POTASSIUM 6.3 mmol/L (3.5-5.1); THYROID STIMULATING HORMONE 2.94 uIu/ml (0.300-4.500)
[2016-09-17] MEDS ORDERED: SODIUM CHLORIDE 0.9% 500ML 500 ML IV STA (14:35)
[2016-09-17] MEDS ORDERED: DEXTROSE 50% 50 ML SYR IV STA (14:35)
[2016-09-17] MEDS ORDERED: NovoLIN-R INSULIN PER UNIT CHARGE IV STA (14:35)
[2016-09-17] MEDS ORDERED: CALCIUM GLUCONATE 10% 10 ML VIAL IV STA (14:35)
--- NOTE | 2016-09-17 16:51 | Medical Student: [facility] ---
Med Student History & Physical Date & Time of Service: Sep 17, 2016 at 16:32 Chief Complaint: Vomiting Primary Care Physician: Hayder Solorio M.D. History of Present Illness Source: patient, family ( ) HPI: Mrs. 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 She is recently 1 week post-op from a right sided femur surgery in [place] for tumor found on her right femur. Since discharge, she has been in rehab at a nursing facility. Zofran was provided for her at the nursing facility, but her nausea was refractory. On admission, she was afebrile, tachycardic at 98, normotensive at 119/78, and sating well at 96% on RA. She was found to have an NIKKIE with BUN 108 and Cr 13. Her last creatinine was 2.5 on 08/29/16. Additionally she was found to be hyponatremic at 133, hyperkalemic at 6.3, hypercalcemic at 16, and anemic at 8.3. Ca gluconate 100 mg IV and 10 units Regular insulin with dextrose were provided for her hyperkalemia. She was also started on IVFs. She continues to be tachycardic at 99, but remains normotensive at 121/78 and sating well at 98% on RA. She denies PRESTON, chest pain, SOB, abdominal pain, and changes in bowel movements. She is currently not on chemotherapy. She was recently hospitalized in from 08/27-08/29 for a NIKKIE with hematuria and hypercalcemia. On discharge her Cr was 2.5. Also, in July 2016, she was treated at [facility] for an intracranial hemorrhage. Oncologic History: primary oncologist is Dr. Hassan in [place], Dr. Beal in [place] -at diagnosis: Stage pT2B NOM1 -chemotherapy: Afinitor then clinical trial, Axitinib for 1 year, and Pazopabib for 1.5 years -brain mets were found in 2014 -gamma knife radiation and Nexavar chemotherapy -suboccipital craniotomy with excision of tumor and hematoma in 2014 -chemotherapy temsirolimus -persistent scalp lesions s/p radiation in 06/2015 -carbometrics chemotherapy -met L post orbital soft tissue s/p radiation -3750 cGy 12/2015 Past Medical/Surgical History 1) Stage 4 renal cell carcinoma w/ metastases to brain, lung, pancreas, mesentery, bladder, uterus, colon, ovary and scalp and s/p femur tumor excision and right nephrectomy 2) CKD 3) B/l DVTs s/p IVC filter 4) Hypothyroidism 5) Hypercalcemia 6) TIA 7) Superficial thrombophlebitis Family History Father: cancer (melanoma) Mother: cancer (leukemia ) Social History Smoking Status: Former Smoker Drug Use: none Marital Status: Housing status: lives with family Occupational Status: disabled Immunizations History of Influenza Vaccine: Yes History of Tetanus Vaccine?: Yes History of Pneumococcal: Yes History of Hepatitis B Vaccine: No Allergies Coded Allergies: POLLEN (Verified Allergy, Mild, sneezing, 08/27/16) Medications Acetaminophen Tab (Tylenol), 325 MG PO DIRECTED PRN for Moderate Pain Alprazolam (Xanax), 0.5 MG PO QAM Escitalopram Oxalate (Lexapro), Unknown Dose PO DAILY Levothyroxine Sodium (Synthroid), 1 TAB PO DAILY Ondansetron Hcl (Zofran), 8 MG PO PRN PRN for Nausea or Vomiting Review of Systems Constitutional: No fever, No chills Eyes: No worsening of vision ENT: No hearing loss Respiratory: No cough, No sputum, No shortness of breath Cardiovascular: + edema, No chest pain, No palpitations Abdomen: + nausea, + vomiting, No pain, No diarrhea, No constipation Musculoskeletal: No joint pain, No muscle pain Genitourinary - Female: No dysuria Neurologic: + memory loss (short term ) Physical Exam Vital Signs (24 Hours) Date Time Temp Pulse Resp B/P (MAP) Pulse Ox O2 Delivery O2 Flow Rate FiO2 09/17/16 15:20 101 22 111/70 97 Room Air 09/17/16 13:56 95 20 121/78 98 Room Air 09/17/16 13:16 91 09/17/16 12:16 97 Room Air 09/17/16 12:10 89 20 120/74 96 Room Air 09/17/16 10:11 36.8 98 20 119/78 96 Room Air General Appearance: WD/WN, no apparent distress Head: normocephalic, atraumatic Eyes: normal inspection, PERRL, EOMI ENT: normal ENT inspection Neck: supple, thyroid normal, no JVD, + adenopathy present Respiratory/Chest: chest non-tender, lungs clear, normal breath sounds, no respiratory distress Cardiovascular: regular rate, rhythm, no gallop, no JVD, no murmur, normal peripheral pulses Abdomen/GI: normal bowel sounds, non tender, soft, no organomegaly Extremities/Musculoskelatal: no calf tenderness, normal capillary refill, + pedal edema (2+ b/l lower extremity edema ) 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, no motor/sensory deficits, oriented x 3 Skin: warm/dry, no rash Lymphatic: + cervical node abnormality Diagnostics Laboratory Results Results Past 24 Hours Test 09/17/16 13:25 09/17/16 13:35 Range/Units White Blood Count 4.69 4.8-10.8 K/uL Red Blood Count 3.19 4.2-5.4 M/uL Hemoglobin 8.3 12.0-16.0 g/dL Hematocrit 26.2 37-47 % Mean Corpuscular Volume 82.1 80-100 fL Mean Corpuscular Hemoglobin 26.0 25-34 pg Mean Corpuscular Hemoglobin Concent 31.7 32-36 g/dl Platelet Count 202 130-400 K/uL Mean Platelet Volume 9.2 7.4-10.4 fL Neutrophils (%) (Auto) 76.4 % Lymphocytes (%) (Auto) 18.3 % Monocytes (%) (Auto) 3.6 % Eosinophils (%) (Auto) 1.1 % Basophils (%) (Auto) 0.2 % Neutrophils # (Auto) 3.58 1.4-6.5 K/uL Lymphocytes # (Auto) 0.86 1.2-3.4 K/uL Monocytes # (Auto) 0.17 0.11-0.59 K/uL Eosinophils # (Auto) 0.05 0-0.5 K/uL Basophils # (Auto) 0.01 0-0.2 K/uL RDW Standard Deviation 46.7 36.4-46.3 fL RDW Coefficient of Variation 15.3 11.5-14.5 % Immature Granulocyte % (Auto) 0.4 % Immature Granulocyte # (Auto) 0.02 0.00-0.02 K/uL Anisocytosis PRESENT Echinocytes 1+ Prothrombin Time 15.6 9.0-12.0 SECONDS Prothromb Time International Ratio 1.4 0.9-1.1 Activated Partial Thromboplast Time 32.6 21.0-31.0 SECONDS Partial Thromboplastin Ratio 1.3 Sodium Level 133 136-145 mmol/L Potassium Level 6.3 3.5-5.1 mmol/L Chloride Level 103 98-107 mmol/L Carbon Dioxide Level 16 21-32 mmol/L Anion Gap 15.0 3-11 mmol/L Blood Urea Nitrogen 108 7-18 mg/dl Creatinine 13.00 0.60-1.20 mg/dl Est Creatinine Clear Calc Drug Dose 4.7 ml/min Estimated GFR () 3.3 Estimated GFR (Non- 2.9 BUN/Creatinine Ratio 8.3 10-20 Random Glucose 67 70-99 mg/dl Calcium Level 10.2 8.5-10.1 mg/dl Magnesium Level 2.8 1.8-2.4 mg/dl Total Bilirubin 0.4 0.2-1 mg/dl Aspartate Amino Transf (AST/SGOT) 25 15-37 U/L Alanine Aminotransferase (ALT/SGPT) 6 12-78 U/L Alkaline Phosphatase 77 45-117 U/L Total Protein 6.3 6.4-8.2 gm/dl Albumin 2.7 3.4-5.0 gm/dl Globulin 3.6 2.5-4.0 gm/dl Albumin/Globulin Ratio 0.8 0.9-2 Thyroid Stimulating Hormone (TSH) 2.940 0.300-4.500 uIu/ml Bedside Lactic Acid Venous 0.57 0.90-1.70 mmol/L Microbiology Results 09/17/16 Blood Culture, Received Pending 09/17/16 Blood Culture, Received Pending Diagnostic Radiology CXR 09/17/2016 CHEST ONE VIEW PORTABLE CLINICAL HISTORY: Emesis dyspnea COMPARISON STUDY: 01/05/2016 FINDINGS: Interval development of a left suprahilar mass process. Maximum dimensions are approximately 4.5 x 3.5 cm. Developing nodularity right lung base with a probable pleural-based mass laterally. Central catheter in superior vena cava. Postoperative changes of the low thoracic region. IMPRESSION: Interval development of left suprahilar and right basilar masslike/nodular changes as discussed. CT of the chest is recommended as follow-up. Heat CT 09/17/2016 CT SCAN OF THE BRAIN WITHOUT IV CONTRAST CLINICAL HISTORY: Emesis. Recent intracranial hemorrhage. History of metastatic renal cell carcinoma. COMPARISON STUDY: CT scans of the brain dated 07/14/2016 and 01/05/2016. MRI of the brain dated 02/12/2016. TECHNIQUE: Unenhanced axial CT scan of the brain is performed from the vertex to the skull base. CT DOSE: 729.78 mGycm FINDINGS: Brain parenchyma: There are age-related involutional changes noting [id number] patchy subcortical and periventricular microangiopathic change. Left cerebellar encephalomalacia is unchanged and likely related to previous surgery. There is unchanged edema identified in the right frontal lobe at the site of the patient's known metastatic lesion. The lesion is seen on image #16 and measures at least 1.1 cm. There is increasing hyperdensity within this lesion, likely representing hemorrhage. A lesion in the body of the left lateral ventricle is again seen on image #18 has decreased in size from 07/14/2016 and is significantly less hyperdense, now measuring 1.7 cm (previously measuring 2.6 cm). Intraventricular hemorrhage seen on 07/14/2016 has resolved. There is increasing edema identified within the right occipital lobe on image #17. There is no midline shift or evidence of acute territorial ischemia by CT criteria. No extra-axial fluid collection is seen. Ventricles, sulci, cisterns: Prominent secondary to involutional change. See above. Intracranial vasculature: There is atherosclerotic calcification of the cavernous carotid and vertebral arteries. Calvarium: Again seen are postoperative changes from left occipital craniotomy. There is an osteolytic lesion identified in the occipital calvarium on axial image #14 which measures up to 1.6 cm. there is associated soft tissue component seen extending into the scalp. No additional destructive calvarial lesions are clearly identified. Sinuses and mastoids: The visualized paranasal sinuses are clear. The mastoid air cells are well pneumatized. Orbits: The bony orbits are grossly intact. A lesion in the left superior orbital space is again noted on image #6. Soft tissues: Soft tissue nodules in the right frontoparietal scalp are again noted. IMPRESSION: 1. Again seen is a metastatic focus in the right frontal lobe with unchanged surrounding edema. This lesion appears increasingly hyperdense from 07/14/2016, likely representing a small volume of hemorrhage. 2. A mass lesion in the left lateral ventricle has decreased in size from previous and has significantly decreased in density. Intraventricular hemorrhage seen previously has resolved. 3. There is a new focus of edema identified within the right occipital lobe likely related to a new metastatic lesion. The lesion itself was not well visualized. 4. There is a new calvarial lesion identified in the occipital bone just to the left of midline. A soft tissue component extends into the scalp. 5. A lesion in the superior left orbit is partially imaged and likely unchanged. 6. There is no evidence of acute territorial ischemia by CT criteria. 7. Postoperative change and encephalomalacia in the left cerebellar hemisphere is similar to previous. Renal US 09/17/2016 RENAL ULTRASOUND CLINICAL HISTORY: Acute renal failure. Vomiting. History of metastatic renal cell carcinoma. COMPARISON STUDY: CT of the abdomen and pelvis February 10, 2016 and renal ultrasound August 29, 2016. TECHNIQUE: Sonography of the kidneys and the urinary bladder was performed. FINDINGS: The right kidney is surgically absent. Several left renal masses are again noted and measure up to 4.5 cm. There is mild to moderate left hydronephrosis. A few bladder masses are again noted. These measure up to 3.3 cm. These were shown on exam of August 29, 2016. IMPRESSION: 1. Mild to moderate left hydronephrosis which has developed since prior exam of August 29, 2016. 2. Redemonstration of multiple left renal and bladder masses. 3. Status post right nephrectomy. EKG Normal sinus rhythm Normal T wave morphology Impression Assessment and Plan Assessment: Mrs. Andrews is a 56 year old female with a PMH significant for stage 4 end stage renal carcinoma s/p right nephrectomy in 2010 and recent right femur tumor excision with brain, colon, lung, scalp, femur, bladder, ovarian, and pancreas metastases, CKD, b/l DVTs s/p IVC filter, hypothyroidism, right ankle surgery and gastric hemorrhage on heparin who presents today with 3 days of nausea, vomiting, increasing confusion, dehydration, and decreased appetite. CXR showed worsening left suprahilar and right basilar lung metastases. Head CT showed worsening right frontal lobe lesion and unchanged left superior orbit lesion. New lesions are suspected in the right occipital lobe and calvarial region of the occipital bone. A metastasis in the left lateral ventricle has actually decreased in size. Renal US in August 2016 showed increasing size of left renal masses with the largest being 4.6 cm. Additionally it showed 2 bladder masses of 3.6 and 2 cm. No hydronephrosis was noted. Today, the patient presents with worsening metastatic disease, severe NIKKIE on CKD, hypercalcemia of 10.2 (corrected 11.2), hyperkalemia of 6.3, and hyponatremia of 133. Plan: Primary renal cell carcinoma with worsening metastatic disease: Head CT shows worsening metastatic disease when compared to CT scans from 07/14/2016 and 2015 & MRI from 02/12/2016 (new lesions in right occipital lobe and calvarial region of occipital bone, worsening right frontal lobe lesions). CXR also shows worsening metastatic disease when compared to imaging from 12/2015 (left suprahilar and right basilar lung lesions) -chest CT to investigate further for lung metastases -start Decadron for new brain edema and worsening mentation -follows with Dr. Hassan in [place] and Dr. Beal at [facility] NIKKIE on CKD - Cr at discharge on 08/29/16 was 2.5, today Cr 13, BUN 108, and GFR 2.9, possible etiologies to consider include pre-renal azotemia (dehydrated at [facility] during rehab last 3 days), obstruction (bladder masses found on renal US in August 2016), ATN, and worsening CKD -start D5W + 150 HCO3 @ 150 cc/hr -renal US showed redemonstration of multiple left renal and bladder masses & new mild to moderate left hydronephrosis & s/p right nephrectomy -anion gap elevated at 15 - elevated anion gap acidosis 2/2 to uremia 2/2 to NIKKIE -UA and urine cytology -at this time, nephrology recommends against dialysis Hyperkalemia - potassium 6.3 -1000 mg calcium gluconate administered -10 units regular insulin w/ dextrose -potassium restricted diet -consider Kayexalate if hyperkalemia does not resolve -repeat metabolic profile in 4 hours -check AM cortisol level for possibly adrenal insufficiency Hypercalcemia -calcium 10.2, corrected 11.2 -start D5W + 150 HCO3 @ 150 cc/hr -do not use bisphosphonates considering CrCl <35 -consider calcitonin if does not improve with IVFs -repeat metabolic profile in 4 hours Hyponatremia - Na 133 -Start D5W + 150 HCO3 @ 150 ml/hr -repeat metabolic profile in 4 hours -check AM cortisol level for possible adrenal insufficiency
--- NOTE | 2016-09-17 17:05 | Nephrology Consultation ---
Nephrology Consultation Date & Providers Date of Consultation: Sep 17, 2016. Primary Care Provider: Hayder Solorio M.D. Referring Provider: Reason for Consultation Acute renal insufficiency; hyperkalemia History of Present Illness Helen Andrews is a 56-year-old female with diffusely metastatic renal cell carcinoma which has unfortunately been refractory to treatment. She has a complicated medical history and is currently followed for oncologic care at [facility]. The patient was seen and evaluated in the ER this afternoon. I had an extensive conversation with the patient and her . They expressed understanding that treatment options are limited. She underwent a palliative orthopedic pinning of the femur for a metastatic fracture at [facility] approximately 10 days ago. Their primary goal remains to maintain an acceptable quality of life. She has an advanced directive and had previously documented that she would not want to be maintained on life support. She is DNR /DNI. Helen is currently living in assisted living at [facility] in [place]. She hoped to eventually transition home once she had recovered from recent surgery. Helen was evaluated by a urologist in [place] within the past couple of weeks. They report a discussion that urologic intervention for known bladder lesions would be considered too high risk given the extent of her malignancy and comorbidities. The patient has advanced renal dysfunction with a self reported creatinine of 4 mg/dL approximately 1 week ago. She was admitted to [facility] from August 27- with hematuria and NIKKIE. She was discharged with a serum creatinine of 2.5 mg/dL. NIKKIE attributed to prerenal azotemia. Imaging revealing multiple solid masses involving the left kidney as well as two echogenic bladder masses. She had hypercalcemia of malignancy but preserved urine output at that time. Hyperkalemia treated in the ED today with 1 gram calcium gluconate followed by insulin and dextrose as well as 1 L NSS. Following an initial liter of saline, an infusion of 200 ml/hr was started. She has not made any urine. Helen underwent a right radical nephrectomy in June of 2010. Tumor was staged at pT2b N0M1. Systemic chemotherapy was started with Afinitor and then a clinical trial at [facility] (Axitinib for one year and Pazopabib for one and a half years). Unfortunately in May of 2014 metastatic disease was found in the brain. Gamma knife radiation therapy was completed in June 2014 followed by suboccipital craniotomy with excision of tumor in August 2014. The patient continued systemic chemotherapy with Nexavar and subsequently Temsirolimus. She completed radiation therapy for scalp lesions in June 2015 and additional therapy for a left orbital soft tissue lesion in December 2015. Her malignancy course has been complicated by ICH due to mets and Heparin use as well as GI bleed following Heparin use. Home medications include Xanax, levothyroxine, Zofran, Lexapro. Helen has a self reported fair quality of life. She has been bed ridden due to recent orthopedic surgery. Her functional status has dramatically declined over the past few months. Her appetite is extremely poor. She has constant nausea and intermittent vomiting after meals. Zofran is no longer controlling symptoms of nausea. She has intermittent loose stool. She denies significant pain. She denies fevers or chills. She has not experienced chest pain or palpitations. Her urine output has been minimal, dark and cloudy for the past few days. She voided once yesterday and has not voided today. Her expressed concern about recent hallucinations and progressive confusion. Past Medical/Surgical History (1) S/p nephrectomy (2) S/P craniotomy (3) S/p ankle surgery (4) S/P insertion of IVC (inferior vena caval) filter (5) Metastatic renal cell carcinoma (6) Brain metastasis (7) Hypothyroidism (8) History of DVT (deep vein thrombosis) (9) GI Bleeding, End Stage Renal Cancer (10) Lung metastasis Allergies Coded Allergies: POLLEN (Verified Allergy, Mild, sneezing, 08/27/16) Family History FH: cancer FATHER (melanoma) MOTHER (leukemia) Social History Smoking Status: Former Smoker Drug Use: none Marital Status: Review of Systems A complete review of systems was performed. Pertinent positives are noted above. All other systems are negative. Physical Exam Date Time Temp Pulse Resp B/P (MAP) Pulse Ox O2 Delivery O2 Flow Rate FiO2 09/17/16 15:20 101 22 111/70 97 Room Air 09/17/16 13:56 95 20 121/78 98 Room Air 09/17/16 13:16 91 09/17/16 12:16 97 Room Air 09/17/16 12:10 89 20 120/74 96 Room Air 09/17/16 10:11 36.8 98 20 119/78 96 Room Air General Appearance: WD/WN, no apparent distress Head: normocephalic, + pertinent finding (areas of scaring allopecia noted with exposed scalp with small erythematous nodules) Eyes: normal inspection, sclerae normal ENT: normal ENT inspection, + pertinent finding (oral mucosa dry without lesion ) Neck: supple, no JVD Respiratory/Chest: no respiratory distress, no accessory muscle use, + decreased breath sounds Cardiovascular: no gallop, no murmur, + tachycardia Abdomen/GI: non tender, soft Extremities/Musculoskelatal: normal inspection, no pedal edema Neurologic/Psych: alert, + depressed affect Skin: normal color Laboratory Results Last 24 Hours Test 09/17/16 13:25 09/17/16 13:35 White Blood Count 4.69 K/uL Red Blood Count 3.19 M/uL Hemoglobin 8.3 g/dL Hematocrit 26.2 % Mean Corpuscular Volume 82.1 fL Mean Corpuscular Hemoglobin 26.0 pg Mean Corpuscular Hemoglobin Concent 31.7 g/dl Platelet Count 202 K/uL Mean Platelet Volume 9.2 fL Neutrophils (%) (Auto) 76.4 % Lymphocytes (%) (Auto) 18.3 % Monocytes (%) (Auto) 3.6 % Eosinophils (%) (Auto) 1.1 % Basophils (%) (Auto) 0.2 % Neutrophils # (Auto) 3.58 K/uL Lymphocytes # (Auto) 0.86 K/uL Monocytes # (Auto) 0.17 K/uL Eosinophils # (Auto) 0.05 K/uL Basophils # (Auto) 0.01 K/uL RDW Standard Deviation 46.7 fL RDW Coefficient of Variation 15.3 % Immature Granulocyte % (Auto) 0.4 % Immature Granulocyte # (Auto) 0.02 K/uL Anisocytosis PRESENT Echinocytes 1+ Prothrombin Time 15.6 SECONDS Prothromb Time International Ratio 1.4 Activated Partial Thromboplast Time 32.6 SECONDS Partial Thromboplastin Ratio 1.3 Sodium Level 133 mmol/L Potassium Level 6.3 mmol/L Chloride Level 103 mmol/L Carbon Dioxide Level 16 mmol/L Anion Gap 15.0 mmol/L Blood Urea Nitrogen 108 mg/dl Creatinine 13.00 mg/dl Est Creatinine Clear Calc Drug Dose 4.7 ml/min Estimated GFR () 3.3 Estimated GFR (Non- 2.9 BUN/Creatinine Ratio 8.3 Random Glucose 67 mg/dl Calcium Level 10.2 mg/dl Magnesium Level 2.8 mg/dl Total Bilirubin 0.4 mg/dl Aspartate Amino Transf (AST/SGOT) 25 U/L Alanine Aminotransferase (ALT/SGPT) 6 U/L Alkaline Phosphatase 77 U/L Total Creatine Kinase 16 U/L Total Protein 6.3 gm/dl Albumin 2.7 gm/dl Globulin 3.6 gm/dl Albumin/Globulin Ratio 0.8 Thyroid Stimulating Hormone (TSH) 2.940 uIu/ml Bedside Lactic Acid Venous 0.57 mmol/L Impression (1) Acute renal insufficiency (2) Metastatic renal cell carcinoma (3) Hyperkalemia (4) Hypercalcemia (5) Hypoalbuminemia Helen is a 56-year-old female with diffuse metastatic renal cell carcinoma refractory to treatment. This includes metastatic disease to bone, brain, lungs , retroperitoneum and abdominal and pelvic organs. She presented to the ER at [facility] today with anorexia, nausea and vomiting. Evaluation notable for acute renal insufficiency and progressive metastatic disease involving the brain. Renal function known to be poor at baseline with a creatinine of 2.5-4.0 mg/dL consistent with CKD IV. She has never been previously evaluated by a solderer. She did recently undergo urologic evaluation as an outpatient for bladder lesions but surgical intervention was considered high risk and deferred. NIKKIE is complicated by hypercalcemia (corrected calcium 11.2) and severe hyperkalemia. No acute EKG changes. She has a metabolic acidosis consistent with NIKKIE. Urine output reported as minimal. Helen has hypovolemic hyponatremia as well as other markers of poor nutrition including low baseline CPK and hypoalbuminemia. Unfortunately, renal replacement therapy is unlikely to provide significant therapeutic or clinical benefit given her advanced illness. I discussed the plan of care with Dr. Frost in detail today. The patient and her are aware of the advanced nature of her illness. We discussed the dying process in detail. They would prefer to avoid aggressive interventions if at all possible. The patient has requested to be labeled DNR/DNI. They would like to speak with a hospice/palliative childcare aide tomorrow and would like to discuss options for hospice care. The leading differential diagnosis for NIKKIE at this time includes obstruction, ATN, prerenal azotemia or progression of CKD with loss of function renal mass. Prognosis is very poor with or without renal replacement therapy. Renal US does reveal evidence of hydronephrosis. The patient reports minimal urine output despite 1+ L 0.9% saline in the ED. We discussed management at this time focused on medical therapy for hypercalcemia and hyperkalemia. This would include restoring intravascular volume and providing HCO3 replacement. Once IVF has been given, consider Zometa 4 mg given over 60 minutes to assist with hypercalcemia. Corticosteroids would also likely provide therapeutic benefit. Recommendations -- Obtain a STAT renal US -- UA/microscopy -- Stop 0.9% saline infusion -- Start D5W + 150 mEq HCO3 @ 150 ml/hr -- Repeat metabolic profile in 4 hours -- Document I/O's -- Avoid additional calcium -- Favor Kayexalate and HCO3 replacement for persistent hyperkalemia -- Check AM cortisol level with morning labs (or random cortisol now if starting corticosteroids) -- Urology consult if patient remains anuric (patient asked to avoid Blum placement if possible due to risk for bleeding from bladder lesions) -- Palliative care consult -- DNR/DNI
--- NOTE | 2016-09-17 17:12 | DIAGNOSTIC IMAGING REPORT ---
RENAL ULTRASOUND CLINICAL HISTORY: Acute renal failure. Vomiting. History of metastatic renal cell carcinoma. COMPARISON STUDY: CT of the abdomen and pelvis February 10, 2016 and renal ultrasound August 29, 2016. TECHNIQUE: Sonography of the kidneys and the urinary bladder was performed. FINDINGS: The right kidney is surgically absent. Several left renal masses are again noted and measure up to 4.5 cm. There is mild to moderate left hydronephrosis. A few bladder masses are again noted. These measure up to 3.3 cm. These were shown on exam of August 29, 2016. IMPRESSION: 1. Mild to moderate left hydronephrosis which has developed since prior exam of August 29, 2016. 2. Redemonstration of multiple left renal and bladder masses. 3. Status post right nephrectomy. Electronically signed by: Tenzin Yang M.D. 09/17/2016 5:11 PM Dictated Date/Time: 09/17/2016 5:05 PM
--- NOTE | 2016-09-17 18:03 | EMERGENCY ROOM VISIT NOTE ---
ED Visit Note First contact with patient: 11:02 I agree with the diagnosis and management decisions and have been personally involved in the case. After review of the labs, I did order 1 amp of calcium gluconate, 10 units of IV regular insulin and 1 amp of D50 IV. EKG reveals no evidence of peaked Ts or QT prolongation. Patient has IV fluids running. The case has been discussed with the hospitalist service who will evaluate for further management. Please see Earle Orr PA-C's notes for further details of the history, physical and visit.
[2016-09-17] MEDS ORDERED: ZOLPIDEM TARTRATE 5 MG TAB PO PRN (18:45)
[2016-09-17] MEDS ORDERED: ACETAMINOPHEN 325 MG TAB PO PRN (18:45)
[2016-09-17] MEDS ORDERED: MoRPHine SULFATE 4 MG/ML 1 ML CARP\\VIAL IV PRN (19:00)
[2016-09-17] MEDS: SODIUM BICARBONATE 8.4% INJ 150 MEQ in DEXTROSE 5% 1000ML 1,000 ML IV SCH (19:02)
[2016-09-17 20:05] VITALS: BP 135/84; PULSE 94; TEMP 36.6; O2SAT 98
[2016-09-17] MEDS ORDERED: DEXAMETHASONE INJ 10 MG in SYRINGE 0 ML IV ONE (21:00)
[2016-09-17] MEDS: FAMOTIDINE IV INJ 20 MG in DEXTROSE 5% 100ML 100 ML IV SCH (21:05)
[2016-09-17 22:05] VITALS: O2SAT 98; BMI 25.9
[2016-09-18] VITALS: BP 124/77; PULSE 87; TEMP 36.7; O2SAT 94
[2016-09-18] MEDS: DEXAMETHASONE INJ 4 MG in SYRINGE 0 ML IV SCH ×4 (01:55→20:10)
[2016-09-18] MEDS: SODIUM BICARBONATE 8.4% INJ 150 MEQ in DEXTROSE 5% 1000ML 1,000 ML IV SCH ×2 (01:55→09:29)
[2016-09-18 04:00] VITALS: BP 121/73; PULSE 85; TEMP 36.5; O2SAT 95
--- NOTE | 2016-09-18 05:26 | History and Physical ---
History & Physical Date & Time of Service: Sep 18, 2016 at 05:11. The patient was examined on 09/17/2016. Chief Complaint: Arf, Vasogenic Cerebral Edema Primary Care Physician: Hayder Solorio M.D. History of Present Illness Source: patient, spouse The patient is a 56-year-old female with past medical history including end- stage renal cancer, who presents to the emergency department with complaints of vomiting, abdominal discomfort, decreased oral intake for both liquids and solids, and reports from her significant other that she has been hallucinating. The patient reports that since her cancer has progressed, she has decided to stop chemotherapy. She reports that she occasionally has felt feverish, but has not checked her temperature. She's had intermittent right thigh pain, but denies any chest pain or shortness of breath. She does travel to [place] to see doctors there Past Medical/Surgical History Medical Problems: (1) Brain metastasis Status: Chronic (2) CKD (chronic kidney disease) Status: Chronic (3) Diarrhea Status: Resolved (4) History of DVT (deep vein thrombosis) Status: Chronic (5) Hypothyroidism Status: Chronic (6) Lung metastasis Status: Chronic (7) Metastatic renal cell carcinoma Permanent Comment: Status post right radical nephrectomy 07/01/2010 Stage pT2b N0M1 Systemic chemotherapy Afinitor and then a clinical trial [facility] Axitinib for one year Pazopabib for one and a half years Brain metastasis found 05/18/2014. Status post gamma knife radiation therapy June 2014 Continued systemic chemotherapy with Nexavar Status post a suboccipital craniotomy with excision of tumor and hematoma 2014 Continue chemotherapy Temsirolimus Persistent scalp lesions referral for radiation therapy Status post completion of radiation therapy to his lesions of the scalp 2015 Starting carbometrics chemotherapy Metastatic lesion to the left posterior orbital soft tissue Status post completion of radiation therapy to the left orbital soft tissue lesion 12/19/2015 received 3750 cGy Status: Chronic Surgical Problems: (1) S/p ankle surgery Status: Chronic (2) S/P craniotomy Status: Chronic (3) S/P insertion of IVC (inferior vena caval) filter Status: Chronic (4) S/p nephrectomy Status: Chronic Family History FH: cancer FATHER (melanoma) MOTHER (leukemia) Social History Smoking Status: Former Smoker Smokeless Tobacco Use: No Alcohol Use: socially Drug Use: none Marital Status: Housing status: lives with family Occupational Status: disabled Immunizations History of Influenza Vaccine: Yes History of Tetanus Vaccine?: Yes History of Pneumococcal: Yes History of Hepatitis B Vaccine: No Multi-Drug Resistant Organisms History of MDRO: No Allergies Coded Allergies: POLLEN (Verified Allergy, Mild, sneezing, 08/27/16) Home Medications Scheduled Alprazolam (Xanax), 0.5 MG PO QAM Escitalopram Oxalate (Lexapro), Unknown Dose PO DAILY Levothyroxine Sodium (Synthroid), 1 TAB PO DAILY Scheduled PRN Acetaminophen Tab (Tylenol), 325 MG PO DIRECTED PRN for Moderate Pain Ondansetron Hcl (Zofran), 8 MG PO PRN PRN for Nausea or Vomiting Review of Systems The patient denies chest pain, palpitations, shortness of breath, cough, lower extremity swelling, vision change, hearing change, sore throat, chills, sweats, vomiting, blood in urine or stool, dysuria, urinary frequency or urgency, lightheadedness, dizziness, headache, rash, abnormal bruising or bleeding, night sweats. The review of systems is otherwise negative other than for that already noted above, and at least 10 systems have been reviewed. Physical Exam Vital Signs Date Time Temp Pulse Resp B/P (MAP) Pulse Ox O2 Delivery O2 Flow Rate FiO2 09/18/16 04:00 36.5 85 20 121/73 (89) 95 Room Air 09/18/16 00:15 Room Air 09/18/16 00:00 36.7 87 20 124/77 (93) 94 Room Air 09/17/16 22:05 98 Room Air 09/17/16 20:05 36.6 94 18 135/84 (101) 98 Room Air 09/17/16 19:20 98 18 112/74 97 09/17/16 18:12 94 20 116/76 96 Room Air 09/17/16 17:14 103 20 132/82 96 Room Air 09/17/16 15:20 101 22 111/70 97 Room Air 09/17/16 13:56 95 20 121/78 98 Room Air 09/17/16 13:16 91 09/17/16 12:16 97 Room Air 09/17/16 12:10 89 20 120/74 96 Room Air 09/17/16 10:11 36.8 98 20 119/78 96 Room Air The patient is awake, alert and oriented 3, right side of head is shaved, lying in bed and in no acute distress. HEENT--PERRL, EOMI, mucous membranes and oropharynx dry. Neck--supple, no JVD or bruits, thyroid normal, trachea midline, no adenopathy. Heart--normal S1 and S2, no extra beats, no murmurs, rubs or gallops. Lungs--clear bilaterally but diminished throughout, no respiratory distress, no accessory muscle use. Abdomen--normal bowel sounds and soft, nontender and mildly distended. Extremities--no cyanosis, clubbing or edema. There are good distal pulses b/l. Dermatologic--normal skin turgor, normal color, warm and dry, no abnormal lymph nodes, no rash. Neurologic--cranial nerves II through XII grossly intact, motor and sensory examination normal. Rheumatologic--normal range of motion, nontender, muscles and joints. Psychiatric--intermittently anxious and tearful as discussing prognosis. Diagnostics Laboratory Results Results Past 24 Hours Test 09/17/16 13:25 09/17/16 13:35 09/18/16 04:44 Range/Units White Blood Count 4.69 4.8-10.8 K/uL Red Blood Count 3.19 4.2-5.4 M/uL Hemoglobin 8.3 12.0-16.0 g/dL Hematocrit 26.2 37-47 % Mean Corpuscular Volume 82.1 80-100 fL Mean Corpuscular Hemoglobin 26.0 25-34 pg Mean Corpuscular Hemoglobin Concent 31.7 32-36 g/dl Platelet Count 202 130-400 K/uL Mean Platelet Volume 9.2 7.4-10.4 fL Neutrophils (%) (Auto) 76.4 % Lymphocytes (%) (Auto) 18.3 % Monocytes (%) (Auto) 3.6 % Eosinophils (%) (Auto) 1.1 % Basophils (%) (Auto) 0.2 % Neutrophils # (Auto) 3.58 1.4-6.5 K/uL Lymphocytes # (Auto) 0.86 1.2-3.4 K/uL Monocytes # (Auto) 0.17 0.11-0.59 K/uL Eosinophils # (Auto) 0.05 0-0.5 K/uL Basophils # (Auto) 0.01 0-0.2 K/uL RDW Standard Deviation 46.7 36.4-46.3 fL RDW Coefficient of Variation 15.3 11.5-14.5 % Immature Granulocyte % (Auto) 0.4 % Immature Granulocyte # (Auto) 0.02 0.00-0.02 K/uL Anisocytosis PRESENT Echinocytes 1+ Prothrombin Time 15.6 9.0-12.0 SECONDS Prothromb Time International Ratio 1.4 0.9-1.1 Activated Partial Thromboplast Time 32.6 21.0-31.0 SECONDS Partial Thromboplastin Ratio 1.3 Sodium Level 133 136-145 mmol/L Potassium Level 6.3 3.5-5.1 mmol/L Chloride Level 103 98-107 mmol/L Carbon Dioxide Level 16 21-32 mmol/L Anion Gap 15.0 3-11 mmol/L Blood Urea Nitrogen 108 7-18 mg/dl Creatinine 13.00 0.60-1.20 mg/dl Est Creatinine Clear Calc Drug Dose 4.7 ml/min Estimated GFR () 3.3 Estimated GFR (Non- 2.9 BUN/Creatinine Ratio 8.3 10-20 Random Glucose 67 70-99 mg/dl Calcium Level 10.2 8.5-10.1 mg/dl Magnesium Level 2.8 1.8-2.4 mg/dl Total Bilirubin 0.4 0.2-1 mg/dl Aspartate Amino Transf (AST/SGOT) 25 15-37 U/L Alanine Aminotransferase (ALT/SGPT) 6 12-78 U/L Alkaline Phosphatase 77 45-117 U/L Total Creatine Kinase 16 26-192 U/L Total Protein 6.3 6.4-8.2 gm/dl Albumin 2.7 3.4-5.0 gm/dl Globulin 3.6 2.5-4.0 gm/dl Albumin/Globulin Ratio 0.8 0.9-2 Thyroid Stimulating Hormone (TSH) 2.940 0.300-4.500 uIu/ml Bedside Lactic Acid Venous 0.57 0.90-1.70 mmol/L Microbiology Results 09/17/16 Blood Culture, Received Pending 09/17/16 Blood Culture, Received Pending Diagnostic Radiology Patient Name: MENDOZA FUNES Unit Number: [id number] Dictated: [birth year] 1242 Transcribed: 09/17/161242 EV Printed Date/Time: [~ rep prt dt]/[~ rep prt tm] [~ rep ct labl] - [~ rep ct ivnm] [facility] [place] [address] Dictated: 09/17/161242 Transcribed: 09/17/161242 EV Printed Date/Time: [~ rep prt dt]/[~ rep prt tm] [~ rep ct labl] - [~ rep ct ivnm] [~ rep ct add3]] CT SCAN OF THE BRAIN WITHOUT IV CONTRAST CLINICAL HISTORY: Emesis. Recent intracranial hemorrhage. History of metastatic renal cell carcinoma. COMPARISON STUDY: CT scans of the brain dated 07/14/2016 and 01/05/2016. MRI of the brain dated 02/12/2016. TECHNIQUE: Unenhanced axial CT scan of the brain is performed from the vertex to the skull base. CT DOSE: 729.78 mGycm FINDINGS: Brain parenchyma: There are age-related involutional changes noting [id number] patchy subcortical and periventricular microangiopathic change. Left cerebellar encephalomalacia is unchanged and likely related to previous surgery. There is unchanged edema identified in the right frontal lobe at the site of the patient's known metastatic lesion. The lesion is seen on image #16 and measures at least 1.1 cm. There is increasing hyperdensity within this lesion, likely representing hemorrhage. A lesion in the body of the left lateral ventricle is again seen on image #18 has decreased in size from 07/14/2016 and is significantly less hyperdense, now measuring 1.7 cm (previously measuring 2.6 cm). Intraventricular hemorrhage seen on 07/14/2016 has resolved. There is increasing edema identified within the right occipital lobe on image #17. There is no midline shift or evidence of acute territorial ischemia by CT criteria. No extra-axial fluid collection is seen. Ventricles, sulci, cisterns: Prominent secondary to involutional change. See above. Intracranial vasculature: There is atherosclerotic calcification of the cavernous carotid and vertebral arteries. Calvarium: Again seen are postoperative changes from left occipital craniotomy. There is an osteolytic lesion identified in the occipital calvarium on axial image #14 which measures up to 1.6 cm. there is associated soft tissue component seen extending into the scalp. No additional destructive calvarial lesions are clearly identified. Sinuses and mastoids: The visualized paranasal sinuses are clear. The mastoid air cells are well pneumatized. Orbits: The bony orbits are grossly intact. A lesion in the left superior orbital space is again noted on image #6. Soft tissues: Soft tissue nodules in the right frontoparietal scalp are again noted. IMPRESSION: 1. Again seen is a metastatic focus in the right frontal lobe with unchanged surrounding edema. This lesion appears increasingly hyperdense from 07/14/2016, likely representing a small volume of hemorrhage. 2. A mass lesion in the left lateral ventricle has decreased in size from previous and has significantly decreased in density. Intraventricular hemorrhage seen previously has resolved. 3. There is a new focus of edema identified within the right occipital lobe likely related to a new metastatic lesion. The lesion itself was not well visualized. 4. There is a new calvarial lesion identified in the occipital bone just to the left of midline. A soft tissue component extends into the scalp. 5. A lesion in the superior left orbit is partially imaged and likely unchanged. 6. There is no evidence of acute territorial ischemia by CT criteria. 7. Postoperative change and encephalomalacia in the left cerebellar hemisphere is similar to previous. Electronically signed by: Lopez Potts M.D. 09/17/2016 12:54 PM Dictated Date/Time: 09/17/2016 12:43 PM The status of this report is Signed. Draft = Not yet reviewed or approved by Radiologist. Signed = Reviewed and approved by Radiologist. <AttendingPhy></AttendingPhy> <FamilyPhy>Hayder Solorio M.D.</FamilyPhy> < PrimaryPhy>Hayder Solorio M.D.</PrimaryPhy> <UnitNumber>[id number]</UnitNumber> < VisitNumber>[id number]</VisitNumber> <PatientName>MENDOZA FUNES</ PatientName> <DateOfBirth>1960</DateOfBirth> <Location>[facility]</Location> < ServiceDate>09/17/16</ServiceDate> <MNE>ESINDI</MNE> <OrderingPhy>Earle Orr PA-C</OrderingPhy> <OrderingPhyMNE>f rep ord dr walsh</OrderingPhyMNE> < DictatingPhyMNE>f rep dict dr walsh</DictatingPhyMNE> <CCListMNE>f rep ct mne</ CCListMNE> <AdmittingPhyMNE>f pt admit dr walsh</AdmittingPhyMNE> <AttendingPhyMNE >f pt attend dr walsh</AttendingPhyMNE> <ConsultingPhyMNE>f pt consult dr walsh</ConsultingPhyMNE> <FamilyPhyMNE>f pt fam dr walsh</FamilyPhyMNE> <OtherPhyMNE>f pt other dr walsh</OtherPhyMNE> < PrimaryPhyMNE>f pt prim care dr walsh</PrimaryPhyMNE> <ReferringPhyMNE>f pt referring dr walsh</ReferringPhyMNE> Patient Name: MENDOZA FUNES Unit Number: [id number] Dictated: 09/17/161150 Transcribed: 09/17/16 115 MS Printed Date/Time: [~ rep prt dt]/[~ rep prt tm] [~ rep ct labl] - [~ rep ct ivnm] [facility] [place] [address] Dictated: 09/17/161150 Transcribed: 09/17/16 115 MS Printed Date/Time: [~ rep prt dt]/[~ rep prt tm] [~ rep ct labl] - [~ rep ct ivnm] CHEST ONE VIEW PORTABLE CLINICAL HISTORY: Emesis dyspnea COMPARISON STUDY: 01/05/2016 FINDINGS: Interval development of a left suprahilar mass process. Maximum dimensions are approximately 4.5 x 3.5 cm. Developing nodularity right lung base with a probable pleural-based mass laterally. Central catheter in superior vena cava. Postoperative changes of the low thoracic region. IMPRESSION: Interval development of left suprahilar and right basilar masslike/nodular changes as discussed. CT of the chest is recommended as follow-up. Electronically signed by: Hayder Byrne M.D. 09/17/2016 11:53 AM Dictated Date/Time: 09/17/2016 11:51 AM The status of this report is Signed. Draft = Not yet reviewed or approved by Radiologist. Signed = Reviewed and approved by Radiologist. <AttendingPhy></AttendingPhy> <FamilyPhy>Hayder Solorio M.D.</FamilyPhy> < PrimaryPhy>Hayder Solorio M.D.</PrimaryPhy> <UnitNumber>[id number]</UnitNumber> < VisitNumber>[id number]</VisitNumber> <PatientName>MENDOZA FUNES</ PatientName> <DateOfBirth>1960</DateOfBirth> <Location>[facility]</Location> < ServiceDate>09/17/16</ServiceDate> <MNE>ESINDI</MNE> <OrderingPhy>Earle Orr PA-C</OrderingPhy> <OrderingPhyMNE>f rep ord dr walsh</OrderingPhyMNE> < DictatingPhyMNE>f rep dict dr walsh</DictatingPhyMNE> <CCListMNE>f rep ct mne</ CCListMNE> <AdmittingPhyMNE>f pt admit dr walsh</AdmittingPhyMNE> <AttendingPhyMNE >f pt attend dr walsh</AttendingPhyMNE> <ConsultingPhyMNE>f pt consult dr walsh</ConsultingPhyMNE> <FamilyPhyMNE>f pt fam dr walsh</FamilyPhyMNE> <OtherPhyMNE>f pt other dr walsh</OtherPhyMNE> < PrimaryPhyMNE>f pt prim care dr walsh</PrimaryPhyMNE> <ReferringPhyMNE>f pt referring dr walsh</ReferringPhyMNE> Patient Name: MENDOZA FUNES Unit Number: [id number] Dictated: 09/17/161704 Transcribed: 09/17/161704 AYDIN Printed Date/Time: [~ rep prt dt]/[~ rep prt tm] [~ rep ct labl] - [~ rep ct ivnm] [facility] Radiology Department [place], [place] [id number] Dictated: 09/17/161704 Transcribed: 09/17/161704 AYDIN Printed Date/Time: [~ rep prt dt]/[~ rep prt tm] [~ rep ct labl] - [~ rep ct ivnm] RENAL ULTRASOUND CLINICAL HISTORY: Acute renal failure. Vomiting. History of metastatic renal cell carcinoma. COMPARISON STUDY: CT of the abdomen and pelvis February 10, 2016 and renal ultrasound August 29, 2016. TECHNIQUE: Sonography of the kidneys and the urinary bladder was performed. FINDINGS: The right kidney is surgically absent. Several left renal masses are again noted and measure up to 4.5 cm. There is mild to moderate left hydronephrosis. A few bladder masses are again noted. These measure up to 3.3 cm. These were shown on exam of August 29, 2016. IMPRESSION: 1. Mild to moderate left hydronephrosis which has developed since prior exam of August 29, 2016. 2. Redemonstration of multiple left renal and bladder masses. 3. Status post right nephrectomy. Electronically signed by: Tenzin Yang M.D. 09/17/2016 5:11 PM Dictated Date/Time: 09/17/2016 5:05 PM The status of this report is Signed. Draft = Not yet reviewed or approved by Radiologist. Signed = Reviewed and approved by Radiologist. <AttendingPhy></AttendingPhy> <FamilyPhy>Hayder Solorio M.D.</FamilyPhy> < PrimaryPhy>Hayder Solorio M.D.</PrimaryPhy> <UnitNumber>[id number]</UnitNumber> < VisitNumber>[id number]</VisitNumber> <PatientName>MENDOZA FUNES</ PatientName> <DateOfBirth>1960</DateOfBirth> <Location>[facility]</Location> < ServiceDate>09/17/16</ServiceDate> <MNE>ESINDI</MNE> <OrderingPhy>Ang Frost M.D.</OrderingPhy> <OrderingPhyMNE>f rep ord dr walsh</OrderingPhyMNE> < DictatingPhyMNE>f rep dict dr walsh</DictatingPhyMNE> <CCListMNE>f rep ct mne</ CCListMNE> <AdmittingPhyMNE>f pt admit dr walsh</AdmittingPhyMNE> <AttendingPhyMNE >f pt attend dr walsh</AttendingPhyMNE> <ConsultingPhyMNE>f pt consult dr walsh</ConsultingPhyMNE> <FamilyPhyMNE>f pt fam dr walsh</FamilyPhyMNE> <OtherPhyMNE>f pt other dr walsh</OtherPhyMNE> < PrimaryPhyMNE>f pt prim care dr walsh</PrimaryPhyMNE> <ReferringPhyMNE>f pt referring dr walsh</ReferringPhyMNE> EKG EKG shows normal sinus rhythm at 90 bpm, possible old anterior wall UT, no significant change compared to 02/11/2016. Impression Assessment and Plan End stage renal cell cancer/rapidly progressive acute on chronic renal failure/ hyperkalemia/new brain lesions with surrounding edema/changing mental status with hallucinations--extensive discussions with patient and her with myself and with Dr. Carlson from nephrology. After these discussions, it has been decided that dialysis will not significantly prolong the patient's quality or length of life with the extensive spread of her disease. She'll be admitted to the medical floor on a bicarbonate drip, and Decadron IV, and we'll consult psych social worker regarding the possibility of hospice. She has been given and amp of D50 followed by 10 units of Regular Insulin by the ED for hyperkalemia of 6.3, which will be repeated in the a.m., and will be given pamidronate IV for hypercalcemia of 10.2. Zofran IV for nausea, famotidine IV for GI prophylaxis, and morphine IV available for pain. Hypothyroidism--continue Synthroid. Anxiety/depression--continue Xanax and Lexapro. Level of Care Med/Surg Advanced Directives Existing Advance Directive: Yes Existing Living Will: No Existing Power of Blending Tank Helper: No Resuscitation Status DO NOT RESUSCITATE VTE Prophylaxis VTE Risk Assessment Done? Y/N: Yes Risk Level: Moderate Given or contraindicated: SCD's Social Service Consult Cancer Patient Under [place] (the patient has decided to stop treatment, and may be interested in hospice.)
[2016-09-18] MEDS: ONDANSETRON INJ 2 MG/ML 2 ML VIAL IV PRN (06:05)
[2016-09-18 06:21] LABS: HEMATOCRIT 23.8 % (37-47); IG% 0.4 %; LYMPH % 20.6 %; LYMPH ABS # 0.58 K/uL (1.2-3.4); MEAN CELL VOLUME 78.8 fL (80-100); MEAN CORPUSCULAR HEMOGLOBIN 26.8 pg (25-34); MEAN PLATELET VOLUME 9.3 fL (7.4-10.4); MONO % 0.7 %; NEUT % 78.3 %; PLATELET COUNT 215 K/uL (130-400); RED BLOOD COUNT 3.02 M/uL (4.2-5.4); WHITE BLOOD COUNT 2.82 K/uL (4.8-10.8)
[2016-09-18] MEDS ORDERED: LEVOTHYROXINE 100 MCG TAB PO SCH (06:30)
[2016-09-18 06:36] LABS: INR 1.8 (0.9-1.1); PARTIAL THROMBOPLASTIN RATIO 1.3; PROTHROMBIN TIME (PATIENT) 19.2 SECONDS (9.0-12.0)
[2016-09-18 06:51] LABS: COMPLETE YES; LARGE PLATELETS 1+; MICROCYTOSIS PRESENT
[2016-09-18 07:02] LABS: ALKALINE PHOSPHATASE 74 U/L (45-117); ALT/SGPT < 6 U/L (12-78); AST/SGOT 21 U/L (15-37); BLOOD UREA NITROGEN 102 mg/dl (7-18); BUN/CREATININE RATIO 7.8 (10-20); CALCIUM 9.9 mg/dl (8.5-10.1); CARBON DIOXIDE 21 mmol/L (21-32); CHLORIDE 98 mmol/L (98-107); GLUCOSE 199 mg/dl (70-99); MAGNESIUM 2.4 mg/dl (1.8-2.4); POTASSIUM 6.3 mmol/L (3.5-5.1); SODIUM 132 mmol/L (136-145)
[2016-09-18 07:27] VITALS: Ht 162.6 cm; Wt 72.8 kg
[2016-09-18 07:28] VITALS: BP 122/77; PULSE 83; TEMP 36.5; O2SAT 94
[2016-09-18] MEDS ORDERED: ALPRAZOLAM 0.5 MG TAB PO SCH (08:00)
[2016-09-18] MEDS ORDERED: ESCITALOPRAM OXALATE 10 MG TAB PO SCH (08:00)
[2016-09-18] MEDS: FAMOTIDINE IV INJ 20 MG in DEXTROSE 5% 100ML 100 ML IV SCH (08:19)
[2016-09-18] MEDS ORDERED: NURSING VERBAL MED ORDER ONE (08:45)
[2016-09-18] MEDS ORDERED: LORAZEPAM 2 MG/ML 1 ML VIAL IV PRN (10:00)
[2016-09-18] MEDS: MoRPHine SULFATE 2 MG/ML CARP IV PRN ×3 (10:46→23:27)
--- NOTE | 2016-09-18 11:05 | Nephrology Progress Note ---
Nephrology Progress Note Date of Service Sep 18, 2016. Chief Complaint Acute renal insufficiency; hyperkalemia Subjective Rhiannon was seen and evaluated this morning. Plan of care discussed with hospitalist. Patient's was at the bedside. Questions were answered. Rhiannon is very lethargic. She denied pain or shortness of breath. Review of Systems A complete review of systems was performed. Pertinent positives are noted above. All other systems are negative. Vital Signs Last 8 Hrs Date Time Temp Pulse Resp B/P (MAP) Pulse Ox O2 Delivery O2 Flow Rate FiO2 09/18/16 07:28 36.5 83 16 122/77 (92) 94 Room Air 09/18/16 04:00 36.5 85 20 121/73 (89) 95 Room Air Last Recorded Weight Weight (Kilograms): 72.800 Physical Exam General Appearance: WD/WN, no apparent distress Head: normocephalic, atraumatic Eyes: normal inspection, sclerae normal ENT: normal ENT inspection, + pertinent finding (oral mucosa dry) Neck: supple, no JVD Respiratory/Chest: no respiratory distress, no accessory muscle use, + decreased breath sounds Cardiovascular: regular rate, rhythm Abdomen/GI: non tender, soft Extremities/Musculoskelatal: + pertinent finding (tenderness, no distal cyanosis) Neurologic/Psych: + disoriented, + pertinent finding (lethargic) Family History FH: cancer FATHER (melanoma) MOTHER (leukemia) Social History Smoking Status: Former smoker Smokeless Tobacco Use: No Alcohol Use: socially Drug Use: none Marital Status: Housing Status: lives with family Occupation: disabled Laboratory Results Past 24 Hours 09/17/16 13:25 Red Blood Count 3.19, Mean Corpuscular Volume 82.1, Mean Corpuscular Hemoglobin 26.0, Mean Corpuscular Hemoglobin Concent 31.7, Mean Platelet Volume 9.2, Neutrophils (%) (Auto) 76.4, Lymphocytes (%) (Auto) 18.3, Monocytes (%) (Auto) 3.6, Eosinophils (%) (Auto) 1.1, Basophils (%) (Auto) 0.2, Neutrophils # (Auto) 3.58, Lymphocytes # (Auto) 0.86, Monocytes # (Auto) 0.17, Eosinophils # (Auto) 0.05, Basophils # (Auto) 0.01 09/18/16 05:33 Red Blood Count 3.02, Mean Corpuscular Volume 78.8, Mean Corpuscular Hemoglobin 26.8, Mean Corpuscular Hemoglobin Concent 34.0, Mean Platelet Volume 9.3, Neutrophils (%) (Auto) 78.3, Lymphocytes (%) (Auto) 20.6, Monocytes (%) (Auto) 0.7, Eosinophils (%) (Auto) 0.0, Basophils (%) (Auto) 0.0, Neutrophils # (Auto) 2.21, Lymphocytes # (Auto) 0.58, Monocytes # (Auto) 0.02, Eosinophils # (Auto) 0.00, Basophils # (Auto) 0.00 09/17/16 13:25 09/18/16 05:33 Test 09/17/16 13:25 09/17/16 13:35 09/18/16 05:33 09/18/16 07:20 White Blood Count 4.69 K/uL (4.8-10.8) 2.82 K/uL (4.8-10.8) Red Blood Count 3.19 M/uL (4.2-5.4) 3.02 M/uL (4.2-5.4) Hemoglobin 8.3 g/dL (12.0-16.0) 8.1 g/dL (12.0-16.0) Hematocrit 26.2 % (37-47) 23.8 % (37-47) Mean Corpuscular Volume 82.1 fL (80-100) 78.8 fL (80-100) Mean Corpuscular Hemoglobin 26.0 pg (25-34) 26.8 pg (25-34) Mean Corpuscular Hemoglobin Concent 31.7 g/dl (32-36) 34.0 g/dl (32-36) Platelet Count 202 K/uL (130-400) 215 K/uL (130-400) Mean Platelet Volume 9.2 fL (7.4-10.4) 9.3 fL (7.4-10.4) Neutrophils (%) (Auto) 76.4 % 78.3 % Lymphocytes (%) (Auto) 18.3 % 20.6 % Monocytes (%) (Auto) 3.6 % 0.7 % Eosinophils (%) (Auto) 1.1 % 0.0 % Basophils (%) (Auto) 0.2 % 0.0 % Neutrophils # (Auto) 3.58 K/uL (1.4-6.5) 2.21 K/uL (1.4-6.5) Lymphocytes # (Auto) 0.86 K/uL (1.2-3.4) 0.58 K/uL (1.2-3.4) Monocytes # (Auto) 0.17 K/uL (0.11-0.59) 0.02 K/uL (0.11-0.59) Eosinophils # (Auto) 0.05 K/uL (0-0.5) 0.00 K/uL (0-0.5) Basophils # (Auto) 0.01 K/uL (0-0.2) 0.00 K/uL (0-0.2) RDW Standard Deviation 46.7 fL (36.4-46.3) 43.5 fL (36.4-46.3) RDW Coefficient of Variation 15.3 % (11.5-14.5) 15.1 % (11.5-14.5) Immature Granulocyte % (Auto) 0.4 % 0.4 % Immature Granulocyte # (Auto) 0.02 K/uL (0.00-0.02) 0.01 K/uL (0.00-0.02) Anisocytosis PRESENT Echinocytes 1+ Prothrombin Time 15.6 SECONDS (9.0-12.0) 19.2 SECONDS (9.0-12.0) Prothromb Time International Ratio 1.4 (0.9-1.1) 1.8 (0.9-1.1) Activated Partial Thromboplast Time 32.6 SECONDS (21.0-31.0) 34.9 SECONDS (21.0-31.0) Partial Thromboplastin Ratio 1.3 1.3 Anion Gap 15.0 mmol/L (3-11) 12.0 mmol/L (3-11) Est Creatinine Clear Calc Drug Dose 4.7 ml/min 4.7 ml/min Estimated GFR () 3.3 3.3 Estimated GFR (Non- 2.9 2.9 BUN/Creatinine Ratio 8.3 (10-20) 7.8 (10-20) Calcium Level 10.2 mg/dl (8.5-10.1) 9.9 mg/dl (8.5-10.1) Magnesium Level 2.8 mg/dl (1.8-2.4) 2.4 mg/dl (1.8-2.4) Total Bilirubin 0.4 mg/dl (0.2-1) 0.3 mg/dl (0.2-1) Aspartate Amino Transf (AST/SGOT) 25 U/L (15-37) 21 U/L (15-37) Alanine Aminotransferase (ALT/SGPT) 6 U/L (12-78) < 6 U/L (12-78) Alkaline Phosphatase 77 U/L (45-117) 74 U/L (45-117) Total Creatine Kinase 16 U/L (26-192) Total Protein 6.3 gm/dl (6.4-8.2) 6.0 gm/dl (6.4-8.2) Albumin 2.7 gm/dl (3.4-5.0) 2.6 gm/dl (3.4-5.0) Globulin 3.6 gm/dl (2.5-4.0) Albumin/Globulin Ratio 0.8 (0.9-2) Thyroid Stimulating Hormone (TSH) 2.940 uIu/ml (0.300-4.500) Bedside Lactic Acid Venous 0.57 mmol/L (0.90-1.70) Large Platelets 1+ Microcytosis PRESENT Direct Bilirubin < 0.1 mg/dl (0-0.2) Bedside Glucose 229 mg/dl (70-90) Allergies Coded Allergies: POLLEN (Verified Allergy, Mild, sneezing, 08/27/16) Medications Current Inpatient Medications Medications (Trade) Dose Ordered Sig/Luis Route Start Time Stop Time Status Last Admin Dose Admin Acetaminophen (Tylenol Tab) 650 mg Q4H PRN PO 09/17/16 18:45 10/17/16 18:44 Dexamethasone Sodium Phosphate 4 mg/Syringe 1 ml @ 1 mls/min Q6H IV 09/18/16 02:00 10/18/16 01:59 09/18/16 08:17 1 MLS/MIN Ondansetron HCl (Zofran Inj) 4 mg Q6H PRN IV 09/17/16 19:00 10/17/16 18:59 09/18/16 06:05 4 MG Morphine Sulfate (MoRPHine SULFATE INJ) 2 mg Q2H PRN IV 09/17/16 19:00 10/01/16 18:59 09/18/16 10:46 2 MG Morphine Sulfate (MoRPHine SULFATE INJ) 4 mg Q2H PRN IV 09/17/16 19:00 10/01/16 18:59 Heparin Sodium (Porcine) (Heparin 100 Unit/ml 5ml Flush) 5 ml PRN PRN IV 09/18/16 04:45 10/18/16 04:44 09/18/16 10:46 5 ML Morphine Sulfate (MoRPHine SULFATE INJ) 2 mg Q4 IV 09/18/16 12:00 10/02/16 11:59 UNV Lorazepam (Ativan Inj) 0.5 mg Q4H PRN IV 09/18/16 10:00 10/18/16 09:59 UNV Impression (1) Acute renal insufficiency (2) Metastatic renal cell carcinoma (3) Hyperkalemia (4) Hypercalcemia (5) Hypoalbuminemia Helen is a 56-year-old female with diffuse metastatic renal cell carcinoma refractory to treatment. This includes metastatic disease to bone, brain, lungs , retroperitoneum and abdominal and pelvic organs. She presented to the ER at [facility] yesterday with anorexia, nausea and vomiting. Evaluation notable for acute renal insufficiency and progressive metastatic disease involving the brain and lungs. Renal function known to be poor at baseline with a creatinine of 2.5-4.0 mg/dL consistent with CKD IV. I had long conversations with the patient and her yesterday and today. Rhiannon is dying. The primary goal at this time is comfort. The patient's expressed that he would like to focus on making Rhiannon comfortable and reiterated that he fears she has too much bone pain in her legs and ankles. He has spoken with his son's and manager laundry. Approximately 25 minutes was spent with the patient and her today answering questions. Recommendations -- Stop HCO3 infusion -- Palliative care consult -- DNR/DNI
[2016-09-18] MEDS: MoRPHine SULFATE 2 MG/ML CARP IV SCH ×4 (12:15→23:27)
[2016-09-19] MEDS: DEXAMETHASONE INJ 4 MG in SYRINGE 0 ML IV SCH ×4 (01:56→21:07)
[2016-09-19] MEDS: MoRPHine SULFATE 2 MG/ML CARP IV PRN ×3 (02:00→14:12)
[2016-09-19] MEDS: LORAZEPAM INJ 0.5 MG in SYRINGE 0.75 ML IV PRN ×3 (02:18→21:06)
[2016-09-19] MEDS: MoRPHine SULFATE 2 MG/ML CARP IV SCH ×6 (04:01→23:36)
--- NOTE | 2016-09-19 04:12 | Hospitalist Progress Note ---
Hospitalist Progress Note Date of Service Sep 18, 2016. Subjective Pt evaluation today including: conversation w/ patient, conversation w/ family Patient extremely lethargic this morning Objective Vital Signs Date Time Temp Pulse Resp B/P (MAP) Pulse Ox O2 Delivery O2 Flow Rate FiO2 09/19/16 00:00 Room Air 09/18/16 15:00 Room Air 09/18/16 08:00 Room Air 09/18/16 07:28 36.5 83 16 122/77 (92) 94 Room Air Physical Exam General Appearance: no apparent distress Respiratory/Chest: lungs clear Cardiovascular: regular rate, rhythm Abdomen: normal bowel sounds Extremities: normal inspection Laboratory Results Last 24 Hours Test 09/18/16 05:33 09/18/16 07:20 White Blood Count 2.82 K/uL Red Blood Count 3.02 M/uL Hemoglobin 8.1 g/dL Hematocrit 23.8 % Mean Corpuscular Volume 78.8 fL Mean Corpuscular Hemoglobin 26.8 pg Mean Corpuscular Hemoglobin Concent 34.0 g/dl Platelet Count 215 K/uL Mean Platelet Volume 9.3 fL Neutrophils (%) (Auto) 78.3 % Lymphocytes (%) (Auto) 20.6 % Monocytes (%) (Auto) 0.7 % Eosinophils (%) (Auto) 0.0 % Basophils (%) (Auto) 0.0 % Neutrophils # (Auto) 2.21 K/uL Lymphocytes # (Auto) 0.58 K/uL Monocytes # (Auto) 0.02 K/uL Eosinophils # (Auto) 0.00 K/uL Basophils # (Auto) 0.00 K/uL RDW Standard Deviation 43.5 fL RDW Coefficient of Variation 15.1 % Immature Granulocyte % (Auto) 0.4 % Immature Granulocyte # (Auto) 0.01 K/uL Large Platelets 1+ Microcytosis PRESENT Prothrombin Time 19.2 SECONDS Prothromb Time International Ratio 1.8 Activated Partial Thromboplast Time 34.9 SECONDS Partial Thromboplastin Ratio 1.3 Sodium Level 132 mmol/L Potassium Level 6.3 mmol/L Chloride Level 98 mmol/L Carbon Dioxide Level 21 mmol/L Anion Gap 12.0 mmol/L Blood Urea Nitrogen 102 mg/dl Creatinine 13.00 mg/dl Est Creatinine Clear Calc Drug Dose 4.7 ml/min Estimated GFR () 3.3 Estimated GFR (Non- 2.9 BUN/Creatinine Ratio 7.8 Random Glucose 199 mg/dl Calcium Level 9.9 mg/dl Magnesium Level 2.4 mg/dl Total Bilirubin 0.3 mg/dl Direct Bilirubin < 0.1 mg/dl Aspartate Amino Transf (AST/SGOT) 21 U/L Alanine Aminotransferase (ALT/SGPT) < 6 U/L Alkaline Phosphatase 74 U/L Total Protein 6.0 gm/dl Albumin 2.6 gm/dl Bedside Glucose 229 mg/dl Assessment and Plan (1) Metastatic renal cell carcinoma Assessment & Plan: Patient has stopped further treatment for cancer, and hemodialysis will not be of help. She appears to be actively dying the above was discussed with her and hospice therapy will be consulted. In addition and palliative care consultation will be placed (2) Hyperkalemia Assessment & Plan: Moving to comfort care (3) ARF (acute renal failure) (4) History of DVT (deep vein thrombosis)
--- NOTE | 2016-09-19 10:33 | Nephrology Progress Note ---
Nephrology Progress Note Date of Service Sep 19, 2016. Chief Complaint Acute renal insufficiency; hyperkalemia Subjective The patient's called me this morning. He is encouraged by improvement in mental status. I saw and evaluated Rhiannon with her and son at the bedside. Rhiannon and her family repeated their desire for her to return home. They would like to explore options for home hospice. Urine output has increased. The patient unfortunately is having trouble using the bedpan due to leg pain. Her expressed concerns about her ability to use the bedpan at home. Review of Systems A complete review of systems was performed. Pertinent positives are noted above. All other systems are negative. Vital Signs Last 8 Hrs Date Time Temp Pulse Resp B/P (MAP) Pulse Ox O2 Delivery O2 Flow Rate FiO2 09/19/16 09:59 Room Air Last Recorded Weight Weight (Kilograms): 72.800 Physical Exam General Appearance: WD/WN, no apparent distress Head: normocephalic, atraumatic Eyes: normal inspection, sclerae normal ENT: normal ENT inspection Neck: supple, no JVD Respiratory/Chest: lungs clear Cardiovascular: regular rate, rhythm Extremities/Musculoskelatal: normal inspection, + pedal edema Neurologic/Psych: alert, + pertinent finding (slightly confused) Family History FH: cancer FATHER (melanoma) MOTHER (leukemia) Social History Smoking Status: Former smoker Smokeless Tobacco Use: No Alcohol Use: socially Drug Use: none Marital Status: Housing Status: lives with family Occupation: disabled Allergies Coded Allergies: POLLEN (Verified Allergy, Mild, sneezing, 08/27/16) Medications Current Inpatient Medications Medications (Trade) Dose Ordered Sig/Luis Route Start Time Stop Time Status Last Admin Dose Admin Acetaminophen (Tylenol Tab) 650 mg Q4H PRN PO 09/17/16 18:45 10/17/16 18:44 Dexamethasone Sodium Phosphate 4 mg/Syringe 1 ml @ 1 mls/min Q6H IV 09/18/16 02:00 10/18/16 01:59 09/19/16 07:48 1 MLS/MIN Ondansetron HCl (Zofran Inj) 4 mg Q6H PRN IV 09/17/16 19:00 10/17/16 18:59 09/18/16 06:05 4 MG Morphine Sulfate (MoRPHine SULFATE INJ) 2 mg Q2H PRN IV 09/17/16 19:00 10/01/16 18:59 09/19/16 09:50 2 MG Morphine Sulfate (MoRPHine SULFATE INJ) 4 mg Q2H PRN IV 09/17/16 19:00 10/01/16 18:59 Heparin Sodium (Porcine) (Heparin 100 Unit/ml 5ml Flush) 5 ml PRN PRN IV 09/18/16 04:45 10/18/16 04:44 09/19/16 07:49 5 ML Morphine Sulfate (MoRPHine SULFATE INJ) 2 mg Q4 IV 09/18/16 12:00 10/02/16 11:59 09/19/16 07:48 2 MG Lorazepam (Ativan Inj) 0.5 mg Q4H PRN IV 09/18/16 10:00 10/18/16 09:59 09/19/16 07:49 0.5 MG Lorazepam 0.5 mg/ Syringe 1 ml @ 1 mls/min Q4H PRN IV 09/18/16 11:15 10/18/16 11:14 09/19/16 02:18 1 MLS/MIN Impression (1) Acute renal insufficiency (2) Metastatic renal cell carcinoma (3) Hyperkalemia (4) Hypercalcemia (5) Hypoalbuminemia Helen is a 56-year-old female with diffuse metastatic renal cell carcinoma refractory to treatment. This includes metastatic disease to bone, brain, lungs , retroperitoneum and abdominal and pelvic organs. She presented to the ER at [facility] with anorexia, nausea and vomiting. Evaluation notable for acute renal insufficiency, hypercalcemia, hyperkalemia and progressive metastatic disease involving the brain and lungs. Renal function known to be poor at baseline with a creatinine of 2.5-4.0 mg/dL consistent with CKD IV-V. I had long conversations with the patient and her again today. The primary goal remains comfort. The patient's expressed that he would like to focus on transition home with hospice. Urine output has increased and they questioned whether Blum catheter placement would offer a palliative benefit. Approximately 30 minutes was spent with the patient, her and the son this morning answering questions. Recommendations -- Palliative care consult to explore home hospice options -- If patient continues to void frequently, Blum catheter may be considered for comfort (acknowledged risks of infection or bleeding) -- Patient an her asked about repeating blood work to assess kidney function, they agreed that it would be unlikely to fire management technician at this time. I offered that we could recheck in 1-2 weeks and treat hypercalcemia with ZA as needed. -- Suggest continuing corticosteroids for therapeutic benefit
[2016-09-19 13:54] LABS: CALCIUM 10.5 mg/dl (8.5-10.1); CREATININE 8.7 mg/dl (0.60-1.20); POTASSIUM 4.9 mmol/L (3.5-5.1)
[2016-09-19] MEDS: ONDANSETRON INJ 2 MG/ML 2 ML VIAL IV PRN (16:05)
--- NOTE | 2016-09-19 16:58 | Palliative Care Consultation ---
Consultation Date of Consultation: Sep 19, 2016. Requesting Physician: Dr. Wooten Attending Physician: Dr. Wooten Reason for Consultation: Goals of care History of Present Illness This 56 year old female patient presented to the ED two days ago with c/o vomiting, abdominal pain, dehydration and increased confusion. she came here from [facility] in [place], where she was staying for rehab. Patient has terminal renal cell carcinoma s/p right nephrectomy with mets to the brain, bone, lungs, retroperitoneum and abdominal/pelvic organs. This widespread metastatic disease has been progressive despite therapy, giving her a very poor prognosis, and her chemotherapy was recently stopped. Her creatinine at baseline is 2.5-4. Now on admission it was 13, down to 8.5 today. She is also on dexamethasone 4mg IV Q6h for the brain mets. Yesterday, patient was extremely lethargic and seemed to be actively dying. Today, her urine output has increased, creatinine improved and she is more awake. The primary goal is still for comfort. Palliative care consulted. I met with the patient, her , and her son in room 423. Patient is alert and oriented to person, place, time and event, but also is quite confused. Talking some non-sensible things and not really able to participate in goals of care conversation. She denies any pain at this time. She was feeding herself lunch. I then met with the patient's outside of room. He became tearful several times and stated, "I know she's on borrowed time." the goal is strictly for comfort and hospice care, but he is feeling quite overwhelmed with trying to accept this. He was focused on the creatinine level as he said that if the creatinine was better that might mean she has more time. He'd be willing to take patient home on hospice once she is stable. quit his job two years ago to care for the patient. Past Medical/Surgical History Medical History: Brain metastasis Status: Chronic (2) CKD (chronic kidney disease) Status: Chronic (3) Diarrhea Status: Resolved (4) History of DVT (deep vein thrombosis) Status: Chronic (5) Hypothyroidism Status: Chronic (6) Lung metastasis Status: Chronic (7) Metastatic renal cell carcinoma Permanent Comment: Status post right radical nephrectomy 07/01/2010 Stage pT2b [id number] Systemic chemotherapy Afinitor and then a clinical trial [facility] Axitinib for one year Pazopabib for one and a half years Brain metastasis found 05/18/2014. Status post gamma knife radiation therapy June 2014 Continued systemic chemotherapy with Nexavar Status post a suboccipital craniotomy with excision of tumor and hematoma 2014 Continue chemotherapy Temsirolimus Persistent scalp lesions referral for radiation therapy Status post completion of radiation therapy to his lesions of the scalp 2015 Starting carbometrics chemotherapy Metastatic lesion to the left posterior orbital soft tissue Status post completion of radiation therapy to the left orbital soft tissue lesion 12/19/2015 received 3750 cGy Status: Chronic Surgical Problems: (1) S/p ankle surgery Status: Chronic (2) S/P craniotomy Status: Chronic (3) S/P insertion of IVC (inferior vena caval) filter Status: Chronic (4) S/p nephrectomy Social History Smoking Status: Former Smoker History of Alcohol Use: No Drug Use: none Marital Status: Housing Status: lives with family Occupation Status: disabled Review of Systems Constitutional: + weight loss, + weakness ENT: No trouble swallowing Respiratory: No cough, No shortness of breath Cardiac: + edema, No chest pain Abdomen: No pain, No nausea, No vomiting Allergies Coded Allergies: POLLEN (Verified Allergy, Mild, sneezing, 08/27/16) Medications Current Inpatient Medications Medications (Trade) Dose Ordered Sig/Luis Route Start Time Stop Time Status Last Admin Dose Admin Acetaminophen (Tylenol Tab) 650 mg Q4H PRN PO 09/17/16 18:45 10/17/16 18:44 Dexamethasone Sodium Phosphate 4 mg/Syringe 1 ml @ 1 mls/min Q6H IV 09/18/16 02:00 10/18/16 01:59 09/19/16 14:09 1 MLS/MIN Ondansetron HCl (Zofran Inj) 4 mg Q6H PRN IV 09/17/16 19:00 10/17/16 18:59 09/19/16 16:05 4 MG Morphine Sulfate (MoRPHine SULFATE INJ) 2 mg Q2H PRN IV 09/17/16 19:00 10/01/16 18:59 09/19/16 14:12 2 MG Morphine Sulfate (MoRPHine SULFATE INJ) 4 mg Q2H PRN IV 09/17/16 19:00 10/01/16 18:59 Heparin Sodium (Porcine) (Heparin 100 Unit/ml 5ml Flush) 5 ml PRN PRN IV 09/18/16 04:45 10/18/16 04:44 09/19/16 16:05 5 ML Morphine Sulfate (MoRPHine SULFATE INJ) 2 mg Q4 IV 09/18/16 12:00 10/02/16 11:59 09/19/16 16:05 2 MG Lorazepam (Ativan Inj) 0.5 mg Q4H PRN IV 09/18/16 10:00 10/18/16 09:59 09/19/16 07:49 0.5 MG Lorazepam 0.5 mg/ Syringe 1 ml @ 1 mls/min Q4H PRN IV 09/18/16 11:15 10/18/16 11:14 09/19/16 16:04 1 MLS/MIN Physical Exam Date Time Temp Pulse Resp B/P (MAP) Pulse Ox O2 Delivery O2 Flow Rate FiO2 09/19/16 09:59 Room Air 09/19/16 00:00 Room Air General Appearance: no apparent distress ENT: hearing grossly normal Neck: supple, no JVD Respiratory: no respiratory distress, no accessory muscle use Cardiovascular: regular rate, rhythm Abdomen: normal bowel sounds, non tender, + distended Neurologic/Psychiatric: alert, normal mood/affect, oriented x 3 (but also has periods of confusion and forgetfulness) Skin: + pallor Laboratory Results Last 24 Hours Test 09/19/16 12:45 Sodium Level 139 mmol/L Potassium Level 4.9 mmol/L Chloride Level 103 mmol/L Carbon Dioxide Level 26 mmol/L Anion Gap 10.0 mmol/L Blood Urea Nitrogen 87 mg/dl Creatinine 8.70 mg/dl Est Creatinine Clear Calc Drug Dose 7.2 ml/min Estimated GFR () 5.4 Estimated GFR (Non- 4.7 BUN/Creatinine Ratio 10.0 Random Glucose 128 mg/dl Calcium Level 10.5 mg/dl Assessment & Plan Palliative Performance Scale: 30 % Problem list: Altered mental status/confusion Poor functional status Acute renal failure on CKD Widely metastatic renal cell carcinoma- mets to brain, bone, lungs, abdominal organs, and retroperitoneum Goals of care (Z51.5) Palliative care recommendations: -Continue current care with comfort meds and Decadron -DNR/DNI per previous conversation - is interested in hospice care and is willing to get set up with an agency. We discussed options: home hospice if patient continues to be awake and alert vs. GIP if patient rapidly declines -Case management is working with patient and on finding hospice agency who can then come in and further discuss care and options. -Support provided to . Thank you kindly for this consult. Please contact me with any further palliative care needs.
[2016-09-20 00:06] VITALS: BP 116/77; PULSE 73; TEMP 36.5; O2SAT 94
--- NOTE | 2016-09-20 01:12 | Hospitalist Progress Note ---
Hospitalist Progress Note Date of Service Sep 19, 2016. Subjective Pt evaluation today including: conversation w/ patient, conversation w/ family Patient is interested in going home does not want to know her prognosis is interested in home hospice Objective Vital Signs Date Time Temp Pulse Resp B/P (MAP) Pulse Ox O2 Delivery O2 Flow Rate FiO2 09/20/16 00:06 36.5 73 18 116/77 (90) 94 Room Air 09/19/16 16:00 Room Air 09/19/16 09:59 Room Air Physical Exam General Appearance: no apparent distress Neck: supple Respiratory/Chest: lungs clear Cardiovascular: regular rate, rhythm Abdomen: normal bowel sounds Neurologic/Psychiatric: alert Laboratory Results Last 24 Hours Test 09/19/16 12:45 Sodium Level 139 mmol/L Potassium Level 4.9 mmol/L Chloride Level 103 mmol/L Carbon Dioxide Level 26 mmol/L Anion Gap 10.0 mmol/L Blood Urea Nitrogen 87 mg/dl Creatinine 8.70 mg/dl Est Creatinine Clear Calc Drug Dose 7.2 ml/min Estimated GFR () 5.4 Estimated GFR (Non- 4.7 BUN/Creatinine Ratio 10.0 Random Glucose 128 mg/dl Calcium Level 10.5 mg/dl Assessment and Plan (1) Metastatic renal cell carcinoma Assessment & Plan: Patient is not a candidate for any further therapy and has agreed to comfort measures. Patient does not want to know her prognosis however a 2 week prognosis is what could be expected under the circumstances. I have expressed concern that her current situation can deteriorate quickly. The patient wants to be at home hospice should be arranged as soon as possible. The patient's is his sole caregiver. Patient has multiple children and mention lutheran support potentially. (2) Hyperkalemia (3) ARF (acute renal failure) (4) History of DVT (deep vein thrombosis)
[2016-09-20] MEDS: DEXAMETHASONE INJ 4 MG in SYRINGE 0 ML IV SCH ×4 (02:21→19:40)
[2016-09-20] MEDS: MoRPHine SULFATE 2 MG/ML CARP IV SCH ×5 (04:24→19:40)
--- NOTE | 2016-09-20 08:50 | Nephrology Progress Note ---
Nephrology Progress Note Date of Service Sep 20, 2016. Chief Complaint Acute renal insufficiency; hyperkalemia Subjective No acute events overnight. Rhiannon continues to complain of hip and leg pain. She expressed significant difficulty with using the bedpan and continues to request a Blum catheter. Her primary goal remains to return home with hospice. Appetite fair. No bowel movement. Review of Systems A complete review of systems was performed. Pertinent positives are noted above. All other systems are negative. Last Recorded Weight Weight (Kilograms): 72.800 Physical Exam General Appearance: WD/WN, no apparent distress Head: normocephalic, atraumatic Eyes: normal inspection, sclerae normal ENT: normal ENT inspection, pharynx normal Neck: supple, no JVD Respiratory/Chest: lungs clear, no respiratory distress, no accessory muscle use Cardiovascular: regular rate, rhythm Abdomen/GI: non tender, soft Extremities/Musculoskelatal: normal inspection, + pedal edema Neurologic/Psych: alert, normal mood/affect Family History FH: cancer FATHER (melanoma) MOTHER (leukemia) Social History Smoking Status: Former smoker Smokeless Tobacco Use: No Alcohol Use: socially Drug Use: none Marital Status: Housing Status: lives with family Occupation: disabled Laboratory Results Past 24 Hours 09/19/16 12:45 Test 09/19/16 12:45 Anion Gap 10.0 mmol/L (3-11) Est Creatinine Clear Calc Drug Dose 7.2 ml/min Estimated GFR () 5.4 Estimated GFR (Non- 4.7 BUN/Creatinine Ratio 10.0 (10-20) Calcium Level 10.5 mg/dl (8.5-10.1) Allergies Coded Allergies: POLLEN (Verified Allergy, Mild, sneezing, 08/27/16) Medications Current Inpatient Medications Medications (Trade) Dose Ordered Sig/Luis Route Start Time Stop Time Status Last Admin Dose Admin Acetaminophen (Tylenol Tab) 650 mg Q4H PRN PO 09/17/16 18:45 10/17/16 18:44 Dexamethasone Sodium Phosphate 4 mg/Syringe 1 ml @ 1 mls/min Q6H IV 09/18/16 02:00 10/18/16 01:59 09/20/16 07:38 1 MLS/MIN Ondansetron HCl (Zofran Inj) 4 mg Q6H PRN IV 09/17/16 19:00 10/17/16 18:59 09/19/16 16:05 4 MG Morphine Sulfate (MoRPHine SULFATE INJ) 2 mg Q2H PRN IV 09/17/16 19:00 10/01/16 18:59 09/19/16 14:12 2 MG Morphine Sulfate (MoRPHine SULFATE INJ) 4 mg Q2H PRN IV 09/17/16 19:00 10/01/16 18:59 Heparin Sodium (Porcine) (Heparin 100 Unit/ml 5ml Flush) 5 ml PRN PRN IV 09/18/16 04:45 10/18/16 04:44 09/20/16 07:39 5 ML Morphine Sulfate (MoRPHine SULFATE INJ) 2 mg Q4 IV 09/18/16 12:00 10/02/16 11:59 09/20/16 07:39 2 MG Lorazepam (Ativan Inj) 0.5 mg Q4H PRN IV 09/18/16 10:00 10/18/16 09:59 09/19/16 07:49 0.5 MG Lorazepam 0.5 mg/ Syringe 1 ml @ 1 mls/min Q4H PRN IV 09/18/16 11:15 10/18/16 11:14 09/19/16 21:06 1 MLS/MIN Impression (1) Acute renal insufficiency (2) Metastatic renal cell carcinoma (3) Hyperkalemia (4) Hypercalcemia (5) Hypoalbuminemia Helen is a 56-year-old female with diffuse metastatic renal cell carcinoma refractory to treatment. This includes metastatic disease to bone, brain, lungs , retroperitoneum and abdominal and pelvic organs. She presented to the ER at [facility] with anorexia, nausea and vomiting. Evaluation notable for acute on chronic renal insufficiency, hypercalcemia, hyperkalemia and progressive disease involving the brain and lungs. She remains non oliguric. Recommendations -- Blum catheter to gravity at patient request for comfort -- Monitoring labs for palliative treatment of hypercalcemia at family discretion -- Metabolic profile from yesterday reviewed -- Bowel regimen with daily bisacodyl daily an Miralax PRN added this morning
[2016-09-20] MEDS ORDERED: POLYETHYLENE (MIRALAX) 17 GM PACK PO PRN (09:15)
[2016-09-20] MEDS ORDERED: ALPRAZOLAM 0.25 MG TAB PO PRN (10:30)
[2016-09-20] MEDS: LEVOTHYROXINE 112 MCG TAB PO SCH (11:12)
[2016-09-20] MEDS: BISACODYL 5 MG TABEC PO SCH (11:12)
[2016-09-20] MEDS: ESCITALOPRAM OXALATE 20 MG TAB PO SCH (11:12)
[2016-09-20] MEDS: LORAZEPAM INJ 0.5 MG in SYRINGE 0.75 ML IV PRN ×2 (14:34→18:58)
[2016-09-20 16:00] VITALS: O2SAT 94
--- NOTE | 2016-09-20 16:03 | Hospitalist Progress Note ---
Hospitalist Progress Note Date of Service Sep 20, 2016. Subjective Pt evaluation today including: conversation w/ patient, conversation w/ family Patient is ready to go home no further aggressive intervention is desired Objective Vital Signs Date Time Temp Pulse Resp B/P (MAP) Pulse Ox O2 Delivery O2 Flow Rate FiO2 09/20/16 10:04 Room Air 09/20/16 00:06 36.5 73 18 116/77 (90) 94 Room Air 09/20/16 00:00 Room Air 09/19/16 16:00 Room Air Physical Exam General Appearance: no apparent distress ENT: hearing grossly normal Neck: trachea midline Respiratory/Chest: lungs clear Cardiovascular: regular rate, rhythm Abdomen: non tender Extremities: normal inspection Assessment and Plan (1) Metastatic renal cell carcinoma Assessment & Plan: Patient is not a candidate for any further therapy and has agreed to comfort measures. Patient does not want to know her prognosis however a 2 week prognosis is what could be expected under the circumstances. I have expressed concern that her current situation can deteriorate quickly. The patient wants to be at home hospice should be arranged as soon as possible. The patient's is his sole caregiver. Patient has multiple children and mention yazdanism support potentially. Case discussed today with the patient's there are only 2 discharge options one would be home with hospice, and the other would be to a nursing home facility. Since the patient wants to be home this should be the first option. Patient's is reluctant since he is so caregiver, and doubts that any of his family, or his yazdanism, we'll be able to provide any real support for him. The alternative to discharge home would be discharged to a facility. I recommended that we prepare for both realities. Patient can start off at home with hospice services, and if caring for her became too much she can then transition to a nursing home facility. I discussed this with them from case management and she will see which hospice agencies are available to service the family, based upon where they live in their insurance. We'll ask the hospice agency to come talk with her today so planning can be made for tomorrow to get her home. (2) Hyperkalemia (3) ARF (acute renal failure) (4) History of DVT (deep vein thrombosis)
[2016-09-21] MEDS: MoRPHine SULFATE 2 MG/ML CARP IV SCH ×7 (00:08→23:18)
[2016-09-21] MEDS: DEXAMETHASONE INJ 4 MG in SYRINGE 0 ML IV SCH ×4 (02:54→19:35)
[2016-09-21] MEDS: LEVOTHYROXINE 112 MCG TAB PO SCH (06:16)
[2016-09-21] MEDS: BISACODYL 5 MG TABEC PO SCH (09:03)
[2016-09-21] MEDS: ESCITALOPRAM OXALATE 20 MG TAB PO SCH (09:03)
--- NOTE | 2016-09-21 09:29 | Nephrology Progress Note ---
Nephrology Progress Note Date of Service Sep 21, 2016. Chief Complaint Acute renal insufficiency; hyperkalemia Subjective Rhiannon is having appropriate anxiety but also very eager to go home. Overall , she states that she feels well. She is content with pain control. She is happy to have the Blum catheter in place. Review of Systems A complete review of systems was performed. Pertinent positives are noted above. All other systems are negative. Last Recorded Weight Weight (Kilograms): 72.800 Physical Exam General Appearance: WD/WN, no apparent distress Head: normocephalic, atraumatic Eyes: normal inspection, sclerae normal ENT: normal ENT inspection, pharynx normal Neck: supple, no JVD Respiratory/Chest: lungs clear, no respiratory distress, no accessory muscle use Cardiovascular: regular rate, rhythm, no murmur Abdomen/GI: non tender, soft Genitourinary - Female: + pertinent finding (Blum draining cloudy yellow urine ) Neurologic/Psych: alert Family History FH: cancer FATHER (melanoma) MOTHER (leukemia) Social History Smoking Status: Former smoker Smokeless Tobacco Use: No Alcohol Use: socially Drug Use: none Marital Status: Housing Status: lives with family Occupation: disabled Allergies Coded Allergies: POLLEN (Verified Allergy, Mild, sneezing, 08/27/16) Medications Current Inpatient Medications Medications (Trade) Dose Ordered Sig/Luis Route Start Time Stop Time Status Last Admin Dose Admin Acetaminophen (Tylenol Tab) 650 mg Q4H PRN PO 09/17/16 18:45 10/17/16 18:44 Dexamethasone Sodium Phosphate 4 mg/Syringe 1 ml @ 1 mls/min Q6H IV 09/18/16 02:00 10/18/16 01:59 09/21/16 07:35 1 MLS/MIN Ondansetron HCl (Zofran Inj) 4 mg Q6H PRN IV 09/17/16 19:00 10/17/16 18:59 09/19/16 16:05 4 MG Morphine Sulfate (MoRPHine SULFATE INJ) 2 mg Q2H PRN IV 09/17/16 19:00 10/01/16 18:59 09/19/16 14:12 2 MG Morphine Sulfate (MoRPHine SULFATE INJ) 4 mg Q2H PRN IV 09/17/16 19:00 10/01/16 18:59 Heparin Sodium (Porcine) (Heparin 100 Unit/ml 5ml Flush) 5 ml PRN PRN IV 09/18/16 04:45 10/18/16 04:44 09/21/16 07:36 5 ML Morphine Sulfate (MoRPHine SULFATE INJ) 2 mg Q4 IV 09/18/16 12:00 10/02/16 11:59 09/21/16 07:36 2 MG Lorazepam (Ativan Inj) 0.5 mg Q4H PRN IV 09/18/16 10:00 10/18/16 09:59 09/19/16 07:49 0.5 MG Lorazepam 0.5 mg/ Syringe 1 ml @ 1 mls/min Q4H PRN IV 09/18/16 11:15 10/18/16 11:14 09/20/16 18:58 1 MLS/MIN Polyethylene (Miralax Powder Packet) 17 gm DAILY PRN PO 09/20/16 09:15 10/20/16 09:14 Bisacodyl (Dulcolax Tab) 10 mg DAILY PO 09/21/16 08:00 10/21/16 07:59 09/21/16 09:03 10 MG Levothyroxine Sodium (Synthroid Tab) 112 mcg DAILYBB PO 09/20/16 10:30 10/20/16 10:29 09/21/16 06:16 112 MCG Escitalopram Oxalate (Lexapro Tab) 20 mg QAM PO 09/20/16 10:30 10/20/16 10:29 09/21/16 09:03 20 MG Alprazolam (Xanax Tab) 0.25 mg Q8H PRN PO 09/20/16 10:30 10/20/16 10:29 Impression (1) Acute renal insufficiency (2) Metastatic renal cell carcinoma (3) Hyperkalemia (4) Hypercalcemia (5) Hypoalbuminemia Helen is a 56-year-old female with diffuse metastatic renal cell carcinoma refractory to treatment. This includes metastatic disease to bone, brain, lungs , retroperitoneum and abdominal and pelvic organs. She presented to the ER at [facility] with anorexia, nausea and vomiting. Evaluation notable for acute on chronic renal insufficiency, hypercalcemia, hyperkalemia and progressive disease involving the brain and lungs. Recommendations I discussed the plan of care with Dr. Wooten this morning. Patient was provided with contact information for the nephrology clinic. No plan to continue bisphosphonate therapy as outpatient at this time. Home hospice arrangements are being established. Nephrology will sign-off now. Please call with any additional questions or concerns.
[2016-09-21] MEDS: ONDANSETRON INJ 2 MG/ML 2 ML VIAL IV PRN (13:44)
--- NOTE | 2016-09-21 18:55 | Hospitalist Progress Note ---
Hospitalist Progress Note Date of Service Sep 21, 2016. Subjective Patient wants to go home no other complaints Objective Vital Signs Date Time Temp Pulse Resp B/P (MAP) Pulse Ox O2 Delivery O2 Flow Rate FiO2 09/21/16 16:51 Room Air 09/21/16 12:28 Room Air 09/21/16 00:01 Room Air 09/20/16 20:00 Room Air Physical Exam General Appearance: no apparent distress Eyes: normal inspection ENT: hearing grossly normal Neck: trachea midline Respiratory/Chest: lungs clear Cardiovascular: regular rate, rhythm Abdomen: normal bowel sounds Assessment and Plan (1) Metastatic renal cell carcinoma Assessment & Plan: Patient is not a candidate for any further therapy and has agreed to comfort measures. Patient does not want to know her prognosis however a 2 week prognosis is what could be expected under the circumstances. I have expressed concern that her current situation can deteriorate quickly. The patient wants to be at home hospice should be arranged as soon as possible. The patient's is his sole caregiver. Patient has multiple children and mention latter-day support potentially. Hospice was consulted and a family meeting was conducted. Inpatient hospice will be pursued at a fdc facility. There were not enough resources for the patient's family to feel comfortable taking care of her at home. Patient will be discharged to [facility]dc facility once bed is available. (2) Hyperkalemia (3) ARF (acute renal failure) (4) History of DVT (deep vein thrombosis) Discharge planning: [facility] facility (that has hospice care), other
[2016-09-22] MEDS: DEXAMETHASONE INJ 4 MG in SYRINGE 0 ML IV SCH ×2 (02:04→07:46)
[2016-09-22] MEDS: MoRPHine SULFATE 2 MG/ML CARP IV SCH ×2 (04:09→07:48)
[2016-09-22] MEDS: LEVOTHYROXINE 112 MCG TAB PO SCH (06:02)
[2016-09-22] MEDS: ESCITALOPRAM OXALATE 20 MG TAB PO SCH (07:46)
[2016-09-22] MEDS: BISACODYL 5 MG TABEC PO SCH (07:46)
[2016-09-22] MEDS: ONDANSETRON INJ 2 MG/ML 2 ML VIAL IV PRN (07:48)
--- NOTE | 2016-09-22 10:06 | Pharmacy Progress Note ---
Pharmacy Dosing Consult Date of Service: Sep 22, 2016. Pharmacy Dosing Scope: Morphine transition from scheduled 2mg IV q 4 hrs to PO: 2mg of IV morphine is equivalent to 6mg morphine PO * Roxanol 6mg PO q 4 hrs. Objective: Height (Inches): 4.00 Weight (Kilograms): 72.800 Current Medications: Current Inpatient Medications Medications (Trade) Dose Ordered Sig/Luis Route Start Time Stop Time Status Last Admin Dose Admin Acetaminophen (Tylenol Tab) 650 mg Q4H PRN PO 09/17/16 18:45 10/17/16 18:44 Dexamethasone Sodium Phosphate 4 mg/Syringe 1 ml @ 1 mls/min Q6H IV 09/18/16 02:00 10/18/16 01:59 09/22/16 07:46 1 MLS/MIN Ondansetron HCl (Zofran Inj) 4 mg Q6H PRN IV 09/17/16 19:00 10/17/16 18:59 09/22/16 07:48 4 MG Morphine Sulfate (MoRPHine SULFATE INJ) 2 mg Q2H PRN IV 09/17/16 19:00 10/01/16 18:59 09/19/16 14:12 2 MG Morphine Sulfate (MoRPHine SULFATE INJ) 4 mg Q2H PRN IV 09/17/16 19:00 10/01/16 18:59 Heparin Sodium (Porcine) (Heparin 100 Unit/ml 5ml Flush) 5 ml PRN PRN IV 09/18/16 04:45 10/18/16 04:44 09/22/16 07:48 5 ML Morphine Sulfate (MoRPHine SULFATE INJ) 2 mg Q4 IV 09/18/16 12:00 10/02/16 11:59 09/22/16 07:48 2 MG Lorazepam (Ativan Inj) 0.5 mg Q4H PRN IV 09/18/16 10:00 10/18/16 09:59 09/19/16 07:49 0.5 MG Lorazepam 0.5 mg/ Syringe 1 ml @ 1 mls/min Q4H PRN IV 09/18/16 11:15 10/18/16 11:14 09/20/16 18:58 1 MLS/MIN Polyethylene (Miralax Powder Packet) 17 gm DAILY PRN PO 09/20/16 09:15 10/20/16 09:14 Bisacodyl (Dulcolax Tab) 10 mg DAILY PO 09/21/16 08:00 10/21/16 07:59 09/22/16 07:46 10 MG Levothyroxine Sodium (Synthroid Tab) 112 mcg DAILYBB PO 09/20/16 10:30 10/20/16 10:29 09/22/16 06:02 112 MCG Escitalopram Oxalate (Lexapro Tab) 20 mg QAM PO 09/20/16 10:30 10/20/16 10:29 09/22/16 07:46 20 MG Alprazolam (Xanax Tab) 0.25 mg Q8H PRN PO 09/20/16 10:30 10/20/16 10:29
[2016-09-22 11:39] VITALS: BP 119/74; PULSE 90; TEMP 36.6; O2SAT 95
[2016-09-22] MEDS: MoRPHine SULFATE CR 15 MG TAB (MS CONTIN) PO SCH ×2 (13:05→20:02)
[2016-09-22] MEDS: DEXAMETHASONE 4 MG TAB PO SCH ×2 (14:33→20:02)
--- NOTE | 2016-09-22 16:11 | Progress Note ---
Subjective Date of Service: Sep 22, 2016. Subjective Pt is on hospice care for metastatic renal cell cancer, will eventually move to [facility], does not want to know prognosis, pain control is good with IV morphine will move to ms contin in hopes of eventual move to snf setting, continue to supply iv if needed for pain control while oral meds are titrated per nursing, wants to be sure patient is on antibiotics for uti upon discharge will start po cipro here Problem List Medical Problems: (1) Abdominal pain Status: Acute (2) Acute on chronic renal insufficiency Status: Acute (3) Anemia Status: Acute (4) Anemia Status: Acute (5) Back pain Status: Acute (6) Dehydration Status: Acute (7) Elevated lipase Status: Acute (8) GI bleed Status: Acute (9) Hypercalcemia Status: Acute (10) Intracranial hemorrhage Status: Acute (11) Left-sided weakness Status: Acute (12) Leg pain Status: Acute (13) Superficial thrombophlebitis Status: Acute (14) TIA (transient ischemic attack) Status: Acute (15) Vomiting Status: Acute (16) Vomiting Status: Acute Review of Systems Constitutional: + weakness, + fatigue, No fever, No chills Respiratory: No cough, No shortness of breath Cardiac: + edema, No chest pain Abdomen: No pain, No nausea, No vomiting Neurologic: + weakness, No memory loss Psychiatric: + depression symptoms, No anhedonism Objective Vital Signs Date Time Temp Pulse Resp B/P (MAP) Pulse Ox O2 Delivery O2 Flow Rate FiO2 09/22/16 11:39 36.6 90 18 119/74 (89) 95 Room Air 09/22/16 08:34 Room Air 09/22/16 00:01 Room Air 09/21/16 20:00 Room Air 09/21/16 16:51 Room Air Physical Exam General Appearance: WD/WN, no apparent distress Eyes: PERRL, EOMI Neck: supple, trachea midline Neurologic/Psychiatric: alert, oriented x 3 Skin: normal color, warm/dry, + rash Assessment and Plan (1) Metastatic renal cell carcinoma (2) Hyperkalemia (3) ARF (acute renal failure) (4) History of DVT (deep vein thrombosis) Discharge planning: alf facility (that has hospice care), other
[2016-09-22] MEDS: CIPROFLOXACIN 250 MG TAB PO SCH (17:02)
[2016-09-23] MEDS: LEVOTHYROXINE 112 MCG TAB PO SCH (07:19)
[2016-09-23] MEDS: BISACODYL 5 MG TABEC PO SCH (08:49)
[2016-09-23] MEDS: MoRPHine SULFATE CR 15 MG TAB (MS CONTIN) PO SCH (08:49)
[2016-09-23] MEDS: ESCITALOPRAM OXALATE 20 MG TAB PO SCH (08:49)
[2016-09-23] MEDS: DEXAMETHASONE 4 MG TAB PO SCH ×2 (08:49→14:05)
[2016-09-23] MEDS: CIPROFLOXACIN 250 MG TAB PO SCH (08:50)
[2016-09-23] MEDS: ONDANSETRON INJ 2 MG/ML 2 ML VIAL IV PRN (08:58)
[2016-09-23] MEDS ORDERED: ONDA8TAB12 PO (09:46)
[2016-09-23] MEDS ORDERED: ALPR-411 PO (09:46)
[2016-09-23] MEDS ORDERED: MRPSR15 PO (09:46)
[2016-09-23] MEDS ORDERED: CPR250 PO (09:50)
[2016-09-23] MEDS ORDERED: MORPHINE PO (09:50)
--- NOTE | 2016-09-23 09:52 | Discharge Instructions ---
Discharge Instructions Date of Service Sep 23, 2016. Admission Reason for Admission: Arf, Vasogenic Cerebral Edema Discharge Discharge Diagnosis / Problem: metastatic renal cell carcinoma Discharge Goals Goal(s): Diagnostic testing, Therapeutic intervention Activity Recommendations Activity Level: Assistance Required . Additional Information Patient informed of condition: Yes Advance Directives: Yes DNR: Yes Level of Care: Skilled (hospice care) Communicable Disease: No Prognosis: Stable Current Hospital Diet Patient's current hospital diet: Renal Diet Discharge Diet Recommended Diet: Regular Diet Pending Studies Studies pending at discharge: no Medical Emergencies . Who to Call and When: Medical Emergencies: If at any time you feel your situation is an emergency, please call 911 immediately. . Non-Emergent Contact Non-Emergency issues call your: Specialist (hospice doctor) . . "Provider Documentation" section prepared by [employer]. . Core Measure Problem Core Measures: None
[2016-09-23 10:21] VITALS: BP 119/74; PULSE 90; TEMP 36.6; O2SAT 95
--- NOTE | 2016-09-23 13:36 | Discharge Summary ---
Discharge Summary Date of Service Sep 23, 2016. Discharge Summary Admission Date: Sep 17, 2016 at 18:44 Discharge Date: Sep 23, 2016 Principal Diagnosis: metastatic renal cell carcinoma, on hospice care Immunizations: Have You Had Influenza Vaccine: Yes History of Tetanus Vaccine?: Yes History of Pneumococcal: Yes History of Hepatitis B Vaccine: No Medication Reconciliation New Medications: [morphine elixir] () 1-2 ML PO Q2H PRN for Pain, #50 ML 20 mg/ml Ciprofloxacin (Ciprofloxacin HCl) 250 Mg Tab 250 MG PO BID, #60 TAB Morphine Sulfate (Morphine Sulfate ER) 15 Mg Tabcr 30 MG PO BID, #120 Continued Medications: Acetaminophen Tab (Tylenol) 325 Mg Tab 325 MG PO DIRECTED PRN for Moderate Pain, TAB Alprazolam (Xanax) 0.5 Mg Tab 0.5 MG PO QAM, #90 TAB (This prescription has been renewed) Escitalopram Oxalate (Lexapro) Unknown Strength Tab Unknown Dose PO DAILY, TAB Levothyroxine Sodium (Synthroid) 100 Mcg Tab 1 TAB PO DAILY Ondansetron Hcl (Zofran) 8 Mg Tab 8 MG PO PRN PRN for Nausea or Vomiting, #30 TAB (This prescription has been renewed) Discharge Exam Review of Systems: Constitutional: + weakness, + fatigue, No fever, No chills Abdomen: No pain, No nausea, No vomiting, No diarrhea Physical Exam: General Appearance: WD/WN, no apparent distress Neurologic/Psychiatric: alert, oriented x 3 Skin: normal color, warm/dry Hospital Course (1) Metastatic renal cell carcinoma (2) Hyperkalemia (3) ARF (acute renal failure) (4) History of DVT (deep vein thrombosis) 56 F with metastatic renal cell carcinoma to lung and brain, she does not want to be told her prognosis, but wants to go to snf for hospice care as cannot be cared for at home with . is having a difficult time during this transition. Her pain is controlled with morphine oral and will have MS contin and oral morphine elixir at snf on hospice Total Time Spent: Greater than 30 minutes This includes examination of the patient, discharge planning, medication reconciliation, and communication with other providers. Discharge Instructions Please refer to the electronic Patient Visit Report (Discharge Instructions) for additional information.
== END 2016-09-23 15:02 | disposition hospice, home (50) | DRG 686 ==
LOC: EDBD 10:04 → C.EDB 10:08 → C.4E 18:44 → ENRESERV 18:57
PROVIDERS: ADMIT Hospitalist; ATTEND Internal Medicine
DX: C64.9 Malignant neoplasm of unspecified kidney, except renal pelvis (principal); N18.6 End stage renal disease; N17.9 Acute kidney failure, unspecified; C79.31 Secondary malignant neoplasm of brain; Z66 Do not resuscitate; Z51.5 Encounter for palliative care; C78.00 Secondary malignant neoplasm of unspecified lung; C79.89 Secondary malignant neoplasm of other specified sites; Z86.718 Personal history of other venous thrombosis and embolism; E03.9 Hypothyroidism, unspecified; Z87.891 Personal history of nicotine dependence; R11.10 Vomiting, unspecified; E87.5 Hyperkalemia; D64.9 Anemia, unspecified; F41.9 Anxiety disorder, unspecified; F32.9 Major depressive disorder, single episode, unspecified; E88.09 Other disorders of plasma-protein metabolism, not elsewhere classified